=== PATIENT | female | born 1965 | race American Indian/Alaskan Native ===

== ENCOUNTER 2017-10-16 17:08 | Emergency (ER) | payer OTHER ==
[~2017-10-16] VITALS: Ht 167.6 cm; Wt 54.4 kg
[~2017-10-16 17:08] MED LIST: BACTRIM DS TAB1 EACH PO; HYDROCODON-ACE1 EA10 PO; MULTIVITAMINS1 EAC7 PO; NORCO 5-325 TA1 EACH PO; OMEPRAZOLE20 MG PO; ZOFRAN ODT4 MG PO
[2017-10-16] MEDS ORDERED: KETOROLAC TROME10 MG PO (17:45)
== END 2017-10-16 17:56 | disposition home or self-care (01) ==
LOC: ED 17:08
DX: S63.501A Unspecified sprain of right wrist, initial encounter (principal); F17.200 Nicotine dependence, unspecified, uncomplicated; Z88.0 Allergy status to penicillin; Z88.8 Allergy status to other drugs, medicaments and biological substances; Y04.0XXA Assault by unarmed brawl or fight, initial encounter
CPT/HCPCS: 73110; 99283

== ENCOUNTER 2018-05-25 13:36 | Inpatient (IN) | payer OTHER ==
[~2018-05-25] VITALS: Ht 167.6 cm; Wt 69.0 kg
[~2018-05-25 13:36] MED LIST changes: +KETOROLAC TROME10 MG PO
--- NOTE | 2018-05-25 17:26 | NUR ---
IV SITE INTACT, NO REDNESS OR SWELLING NOTED, FLUIDS INFUSE EASILY. PT DENIES PAIN, NAUSEA, AND SOB AT THIS TIME. PT ALERT AND ORIENTED X4.
--- NOTE | 2018-05-25 18:22 | NUR ---
22 G IV STARTED IN RT HAND, PT GABY WELL. PT ALSO HAS DINNER IN FRONT OF HER, SHE IS SITTING UP IN BED, CALL LIGHT WITHIN REACH, SPOUSE IS AT THE BEDSIDE.
--- NOTE | 2018-05-25 18:25 | NUR ---
PT BLADDER SCANNED FOR 98 ML. HAS BEEN NOTIFIED, NO VERBAL ORDERS GIVEN AT THIS TIME.
--- NOTE | 2018-05-25 19:30 | NUR ---
DR BECK IN TO SEE PT. PT HAVING BP'S 80'S/50'S, AWARE AND WILL ORDER MIDIDRINE AND CONT TO MONITOR.
--- NOTE | 2018-05-25 19:45 | NUR ---
HELPED PT UP TO VOID 100ML CONCENTRATED URINE, SENT SAMPLE TO LAB. STEADY ON FEET, DENIES DIZZINESS LIGHTHEADEDNESS BUT DOES STATE SHE HAD BEEN LIGHTHEADED EARLIER IN THE DAY. HR FROM 90'S TO 110 WHEN UP. PLAN OF CARE FOR THE NIGHT DISCUSSED WITH PT, QUESTIONS ANSWERED. STATES MOUTH WHERE TOOTH WAS PULLED EARLIER TODAY IS BEGINNING TO HURT "THE NUMBING IS STARTING TO WEAR OFF" AND WILL CALL IF IT GETS TO A POINT THAT SHE WANTS PAIN MEDICINE.
--- NOTE | 2018-05-25 20:16 | NUR ---
ASSESSMENT DONE, PT RESTING IN BED AWAKE WATCHING TV WITH FAMILY IN THE ROOM. K RIDER AND MG RIDER INFUSING ALONG WITH IVF 200ML/HR. ABX JUST COMPLETED, PO VITAMIN K JUST GIVEN. PT DENIES NEEDS AT THIS TIME.
--- NOTE | 2018-05-25 22:17 | NUR ---
PATIENT REPORTS 4/10 PAIN IN MOUTH FROM PULLED TOOTH, DESCRIBES PAIN THROBING. 5 MG PO OXYCODONE GIVEN. PATIENT DENIES FURTHER NEEDS. CALL LIGHT WITHIN REACH.
--- NOTE | 2018-05-26 02:00 | NUR ---
PT DENIES URGE TO VOID, BLADDER SCAN DONE SHOWS 200ML, UP TO VOID 200ML THEN BACK TO BED. DR BECK ON UNIT AND UPDATED RE BP'S AND PROLONGED QT.
--- NOTE | 2018-05-26 07:30 | NUR ---
REPORT RECIEVED. PATIENT IS RESTFUL IN BED. DENIES PAIN.
--- NOTE | 2018-05-26 08:00 | NUR ---
AMBULATED TO TO VOID 500 ML OF CONCENTRATED URINE. STABLE ON FEET. DENIES DIZZINESS. ASSESSMENT DONE UPON RETURN TO BED. TALEKD WITH PATIENT ABOUT PLAN OF CARE, IS UNDERSTANDING. NPO FOR PENDING ABD ULTRASOUND. ORAL CARE GIVEN. DENIES PAIN. SALT WATER RINSE DONE.
--- NOTE | 2018-05-26 09:00 | NUR ---
ABD US DONE AT BEDSIDE.
--- NOTE | 2018-05-26 09:35 | NUR ---
Kartik SIM 40 MEQ [place].
--- NOTE | 2018-05-26 11:15 | NUR ---
PHYS THERAPY HERE TO WORK WITH PATIENT.
--- NOTE | 2018-05-26 11:20 | NUR ---
TOLERATED AMBULATION WELL. HR TO 110 FROM MID 80'S AT REST. DENIES SHORTNESS OF BREATH, DIZZINESS. STATES SHE FEELS BETTER WALKING TODAY. BP-88/56 (62). FAMILY MEMBERS ARE IN ROOM.
--- NOTE | 2018-05-26 12:25 | NUR ---
AMBULATED TO BR TO VOID AND HAVE BM, BACK TO BED W/O INCIDENT.
--- NOTE | 2018-05-26 13:00 | NUR ---
DR. BECK HERE TO SEE PATIENT. ORDERS RECIEVED. PATIENT IS AWARE OF NEW ORDERS. K RIDER CONTINUE TO INFUSE.
[2018-05-26] MEDS ORDERED: PENICILLIN V P500 MG PO (14:10)
[2018-05-26] MEDS ORDERED: FEROSUL325 MG PO (14:12)
[2018-05-26] MEDS ORDERED: VITAMIN C500 M1 PO (14:13)
--- NOTE | 2018-05-26 14:33 | EKG ---
[facility] [address] [place], [place] [address] Signed Sinus tachycardia Prolonged QT Abnormal ECG When compared with ECG of 07-NOV-2016 12:35, No significant change was found Confirmed by BIN BECK DO ([id number]) on 05/26/2018 2:32:57 PM Electronically Signed By: BIN BECK DO 05/26/18 1433 PATIENT NAME: SUSY DUFF PHIL Electrocardiogram DATE OF : 65 PHYSICIAN: BIN BECK DO REPORT #: [id number] REPORT IS CONFIDENTIAL AND NOT TO BE RELEASED WITHOUT AUTHORIZATION
--- NOTE | 2018-05-26 14:35 | EKG ---
[facility] [address] [place], [place] [address] Signed Normal sinus rhythm Prolonged QT Abnormal ECG When compared with ECG of 25-MAY-2018 13:53, (Unconfirmed) No significant change was found Confirmed by BIN BECK DO ([id number]) on 05/26/2018 2:35:39 PM Electronically Signed By: BIN BECK DO 05/26/18 1435 PATIENT NAME: SHERINSUSY Electrocardiogram DATE OF : 65 PHYSICIAN: BIN BECK DO REPORT #: [id number] REPORT IS CONFIDENTIAL AND NOT TO BE RELEASED WITHOUT AUTHORIZATION
--- NOTE | 2018-05-26 14:45 | NUR ---
TO BR TO VOID 200 ML OF DARK YUE URINE. 24 HR URINE STARTED. PATIENT IS AWARE.
--- NOTE | 2018-05-26 15:00 | NUR ---
AMBULATED TO SHOWER.
--- NOTE | 2018-05-26 15:14 | NUR ---
CM ASSESSMENT. PT CURRENTLY LIVES AT HOME WITH SO AND BROTHER. SO WORKS AWAY. PT CARES FOR BROTHER. PT'S SISTER LIVES NEXT DOOR AND ASSISTS PATIENT. PT STATES SISTER WILL CARE FOR HER WHEN SHE GOES HOME.
--- NOTE | 2018-05-26 16:00 | NUR ---
ASSESSMENT UNCHANGED. FAMILY MEMBERS ARE IN ROOM. PATIENT IS W/O C/O. IV SITES X 2 SL.
--- NOTE | 2018-05-26 18:57 | NUR ---
TOOK DINNER WELL. DENIES PAIN. SALT RINSE DONE. NO CHANGES HAS HAD GOOD DAY.
--- NOTE | 2018-05-26 19:45 | NUR ---
PT RECEIVED FROM DAY SHIFT OMAR COFFMAN. PT AWAKE IN BED, BROTHER IN ROOM, DENIES NEEDS OR PAIN. ASSESSMENT COMPLETED. VSS AFEBRILE.
--- NOTE | 2018-05-26 20:15 | NUR ---
DR BECK IN UNIT TO CHECK ON PT, NO NEW ORDERS AT THIS TIME.
--- NOTE | 2018-05-27 02:30 | NUR ---
up to void, back to bed, no complaints
--- NOTE | 2018-05-27 06:33 | NUR ---
UP TO BR TO VOID AND BACK TO BED.
--- NOTE | 2018-05-27 07:30 | NUR ---
REPORT RECIEVED. PATIENT RESTING IN BED IS W/O C/O.
--- NOTE | 2018-05-27 07:35 | NUR ---
UP TO VOID AND BACK TO BED
--- NOTE | 2018-05-27 08:00 | NUR ---
ASSESSMENT DONE. TALKED WITH PATIENT ABOUT PLAN OF CARE FOR DAY, IS UNDERSTANDING.
--- NOTE | 2018-05-27 09:00 | NUR ---
DR. BECK HERE TO SEE PATIENT,TRANSFER TO MED-SURG ORDERS RECIEVED.
--- NOTE | 2018-05-27 10:00 | NUR ---
AMBULATED TO SHOWER, IS VERY STABLE ON FEET.
--- NOTE | 2018-05-27 10:30 | NUR ---
TOLERATED SHOWER WELL. WILL REMAIN IN ICU HOUSE CONVENIENCE.
--- NOTE | 2018-05-27 10:35 | NUR ---
K JOCE HUNG PER ORDERS.
--- NOTE | 2018-05-27 19:53 | NUR ---
SHIFT REPORT WAS RECEIVED FROM OMAR COFFMAN. PT IS CURRENTLY SITTING UP IN BED WATCHING TV, VISITOR AT BEDSIDE. ASSESSMENT COMPLETED AND BENIGN, SEE DOCUMENTATION. SCD'S IN PLACE. IV SITES PATENT, SALINE LOCKED. PLAN OF CARE DISCUSSED WITH PATIENT. PT DENIES REQUESTS AT THIS TIME, CALL LIGHT WITHIN REACH.
--- NOTE | 2018-05-27 20:12 | NUR ---
PT UP INDEPENDENTLY TO BATHROOM, VOIDED 300ML SLIGHTLY CONCENTRATED URINE AND HAD MEDIUM SIZED BM. PT RETURNED TO BED AND PLACED HER SCD'S BACK ON. URINE ADDED TO 24 HOUR COLLECTION AND ICE ADDED TO KEEP SAMPLE COOL. PT PROVIDED WITH CUP OF ICE PER REQUEST, NO FURTHER NEEDS AT THIS TIME.
--- NOTE | 2018-05-27 21:28 | NUR ---
PT UP TO VOID AND THEN BACK TO BED. URINE REMAINS SOMEWHAT CONCENTRATED IN APPEARANCE, ADDED TO 24 HOUR COLLECTION.
--- NOTE | 2018-05-27 22:37 | NUR ---
PT UP TO VOID AND NOW BACK IN BED. STATES SHE IS GOING TO TRY AND SLEEP NOW, NO REQUESTS AT THIS TIME.
--- NOTE | 2018-05-27 23:13 | NUR ---
24 HOUR URINE COLLECTION COMPLETED AT 2300. SAMPLE TAKEN TO LAB. PT APPEARS TO BE SLEEPING AT THIS TIME, DOES NOT APPEAR TO BE IN ANY DISTRESS. RESPIRATIONS EVEN AND UNLABORED, RR:16.
--- NOTE | 2018-05-27 23:38 | NUR ---
PT UP TO BATHROOM TO HAVE BM, THEN RETURNED TO BED. ASSESSMENT COMPLETED, NO CHANGES FROM PREVIOUS ASSESSMENT. VITAL SIGNS OBTAINED AND STABLE. PT DENIES ANY PAIN OR NAUSEA. SCD'S REMAIN IN PLACE. NO REQUESTS AT THIS TIME, CALL LIGHT WITHIN REACH.
--- NOTE | 2018-05-28 00:48 | NUR ---
PT UP TO VOID AND THEN BACK TO BED.
--- NOTE | 2018-05-28 02:07 | NUR ---
PT UP TO VOID AND THEN BACK TO BED. FRESH ICE CHIPS PROVIDED PER REQUEST.
--- NOTE | 2018-05-28 03:34 | NUR ---
PT UP TO BATHROOM TO VOID AND THEN RETURNED TO BED. ASSESSMENT COMPLETED, REMAINS UNCHANGED. VITAL SIGNS OBTAINED AND STABLE. PT CONTINUES TO DENY PAIN AND NAUSEA. NO REQUESTS AT THIS TIME, CALL LIGHT WITHIN REACH.
--- NOTE | 2018-05-28 05:55 | NUR ---
PT UP TO BATHROOM TO VOID AND THEN RETURNED TO BED. FRESH ICE CHIPS PROVIDED PER REQUEST.
--- NOTE | 2018-05-28 07:08 | NUR ---
SHIFT REPORT GIVEN TO DAY SHIFT NURSES.
--- NOTE | 2018-05-28 08:10 | NUR ---
COSYNTROPIN PANEL DRAWEN THEN CORTROSYN IM GIVEN TO R GLUTEUS.
--- NOTE | 2018-05-28 08:20 | NUR ---
SITTING UP IN BED FOR BREAKFAST.
--- NOTE | 2018-05-28 08:40 | NUR ---
LAB DRAWN PER PROTOCOL.
--- NOTE | 2018-05-28 08:40 | NUR ---
TOLERATED BREAKFAST WELL.
--- NOTE | 2018-05-28 09:00 | NUR ---
MEDICATIONS MAG AND KCL RIDER HUNG PER ORDERS.
--- NOTE | 2018-05-28 09:10 | NUR ---
COSYNTROPIN LEVEL DRAWN PER PROTOCOL.
--- NOTE | 2018-05-28 09:20 | NUR ---
DR. BECK HERE TO SEE PATIENT. TALKED WITH PATIENT ABOUT DISCHARGE PLAN. IS AT BEDSIDE.
[2018-05-28] MEDS ORDERED: CIPROFLOXACIN500 MG PO (09:38)
[2018-05-28] MEDS ORDERED: POTASSIUM CHLO20 ME1 PO (09:50)
--- NOTE | 2018-05-28 11:00 | NUR ---
IV KCL AND IV MAG INFUSED. IV SITES X 2 DC'D WITH CATH INTACT. DISCHARGE INSTRUCTIONS GIVEN WITH PATIENT UNDERSTANDING.
--- NOTE | 2018-05-28 11:30 | NUR ---
DISCHARGED TO HOME, TRANSPORTED TO CAR VIA W/C. HERE TO TAKE PATIENT HOME.
== END 2018-05-28 11:30 | disposition home or self-care (01) | DRG 683 ==
LOC: ED 13:36 → CCU 16:45
PROVIDERS: ADMIT Student in an Organized Health Care Education/Training Program
DX: N17.9 Acute kidney failure, unspecified (principal); N39.0 Urinary tract infection, site not specified; R18.8 Other ascites; E87.1 Hypo-osmolality and hyponatremia; T39.395A Adverse effect of other nonsteroidal anti-inflammatory drugs [NSAID], initial encounter; K74.60 Unspecified cirrhosis of liver; F17.200 Nicotine dependence, unspecified, uncomplicated; E87.6 Hypokalemia; E83.42 Hypomagnesemia; E86.1 Hypovolemia; R01.1 Cardiac murmur, unspecified; I45.81 Long QT syndrome; Z88.0 Allergy status to penicillin; Z88.8 Allergy status to other drugs, medicaments and biological substances; Z79.899 Other long term (current) drug therapy
CPT/HCPCS: 36415; 51798; 71045; 76705; 80048; 80053; 80074; 80176; 80400; 81001; 81050; 82140; 82248; 82390; 82525; 82533; 82550; 82570; 82728; 83605; 83690; 83735; 83880; 84100; 84132; 84156; 84300; 84484; 85025; 85610; 85651; 86038; 86703; 87040; 87088; 93005; 93010; 96365; 96366; 97161; 99285-25; 99406; G0480; J0696; J0834; J3475; J3480; J7030; J7060; J7120; P9047

== ENCOUNTER 2019-05-14 22:01 | Emergency (ER) | payer OTHER ==
[~2019-05-14] VITALS: Ht 167.6 cm; Wt 69.0 kg
--- OUTSIDE RECORDS SUMMARY | ~2019-05-14 | XMS | Encounter Summary ---
Demographics + + + | Address | [address] | | | [place] [address] | + + + | Home Phone | | + + + | Preferred Language | Unknown | + + + | Marital Status | | + + + | Restorationist Affiliation | Unknown | + + + | Race | Unknown | + + + | Ethnic Group | Unknown | + + + Author + + + | Author | [facility] | | | and [place] | + + + | Organization | [facility] | | | and [place] | + + + | Address | Unknown | + + + | Phone | Unavailable | + + + Support + + +---------+ + | Name | Relationship | Address | Phone | + + +---------+ + | Genevieve Ch | ECON | Unknown | | + + +---------+ + Care Team Providers + +------+ + | Care Staff Assistant Name | Role | Phone | + +------+ + | No, Unknownpcp | PCP | | + +------+ + Encounter Details +--------+ + + + + | Date | Type | Department | Care Team | Description | +--------+ + + + + | 03/12/ | Orders Only | [facility] | Heather Sargent DO | Long QT interval | | 2019 | | CARDIOLOGY [place] | [address] | (Primary Dx) | | | | [address] | [place], [place] | | | | | [place], [place] | [address] | | | | | [address] | | | | | | [phone] | | | +--------+ + + + + Social History + +-------+ +--------+------+ | Tobacco Use | Types | Packs/Day | Years | Date | | | | | Used | | + +-------+ +--------+------+ | Current Some Day | | 0.25 | | | | Smoker | | | | | + +-------+ +--------+------+ + +---+---+---+ | Smokeless Tobacco: | | | | | Never Used | | | | + +---+---+---+ + + | Comments: used to chew as a kid. | + + + + +---------+ + | Alcohol Use | Drinks/Week | oz/Week | Comments | + + +---------+ + | Never | | | | + + +---------+ + + + + + | Alcohol Habits | Answer | Date Recorded | + + + + | How often do you have a drink containing | Never | 02/08/2019 | | alcohol? | | | + + + + | How many drinks containing alcohol do you | Not asked | | | have on a typical day when you are | | | | drinking? | | | + + + + | How often do you have six or more drinks on | Not asked | | | one occasion? | | | + + + + + + + | Sex Assigned at | Date Recorded | | | | + + + | Not on file | | + + + + + + + | Job Start Date | Occupation | Industry | + + + + | Not on file | Not on file | Not on file | + + + + + + + + | Travel History | Travel Start | Travel End | + + + + + + | No recent travel history available. | + + documented as of this encounter Plan of Treatment +--------+---------+ + + + | Date | Type | Specialty | Care Team | Description | +--------+---------+ + + + | 06/07/ | Office | Cardiology | Heather Sargent DO | | | 2019 | Visit | | [address] | | | | | | [place] | | | | | | [address] | | | | | | | | +--------+---------+ + + + documented as of this encounter Procedures + +--------+ + + + | Procedure Name | Priori | Date/Time | Associated Diagnosis | Comments | | | ty | | | | + +--------+ + + + | ECG 12 LEAD | Routin | 02/08/2019 | Long QT interval | Results for this | | | e | 9:55 AM | | procedure are in the | | | | PDT | | results section. | + +--------+ + + + documented in this encounter Results ECG 12 lead (02/08/2019 9:55 AM PDT) + + + + + + | Component | Value | Ref Range | Performed | Pathologist | | | | | At | Signature | + + + + + + | VENTRICULAR | 58 | BPM | [facility] | | | RATE EKG | | | | | + + + + + + | ATRIAL RATE | 58 | BPM | [facility] | | + + + + + + | P-R | 132 | ms | [facility] | | | INTERVAL | | | | | + + + + + + | QRS | 80 | ms | [facility] | | | DURATION | | | | | + + + + + + | Q-T | 498 | ms | [facility] | | | INTERVAL | | | | | + + + + + + | Q-T | 488 | ms | [facility] | | | INTERVAL | | | | | | (CORRECTED) | | | | | + + + + + + | P WAVE AXIS | 34 | degrees | [facility] | | + + + + + + | QRS AXIS | 66 | degrees | [facility] | | + + + + + + | T AXIS | 43 | degrees | [facility] | | + + + + + + | INTERPRETAT | Please refer to | | [facility] | | | ION TEXT | Providers office visit | | | | | | note for Providers | | | | | | Interpretation.Confirmed | | | | | | by [facility] [place] Read Only, | | | | | | [facility] [place] ([id number]), | | | | | | film and video editor Benitez Arredondo | | | | | | ([id number]) on 03/12/2019 | | | | | | 8:08:58 AM | | | | + + + + + + + + | Specimen | + + | | + + + + + | Narrative | Performed At | + + + | | | + + + + +---------+ + + | Performing | Address | City/State/Zipcode | Phone Number | | Organization | | | | + +---------+ + + | [facility] | | | | + +---------+ + + documented in this encounter Visit Diagnoses + + | Diagnosis | + + | Long QT interval - Primary Nonspecific abnormal electrocardiogram (ECG) (EKG) | + + documented in this encounter"
--- OUTSIDE RECORDS SUMMARY | ~2019-05-14 | XMS | Encounter Summary ---
Demographics + + + | Address | [address] | | | [place] [address] | + + + | Home Phone | | + + + | Preferred Language | Unknown | + + + | Marital Status | | + + + | Amish Affiliation | Unknown | + + + [...] Team Providers + +------+ + | Care Caustic Plant Worker Name | Role | Phone | + [...] | | | | [place] | [phone] | | | | | [address] | | | | | | [phone] | | | +--------+ + + + [...] | Heather Sargent DO | | | 2020 | Visit | | [address] | | | | | | [place] | | | | | | [address] | | | | | | | | +--------+---------+ + + + documented as of this encounter Visit Diagnoses Not on filedocumented in this encounter"
--- OUTSIDE RECORDS SUMMARY | ~2019-05-14 | XMS | Encounter Summary ---
Demographics + + + | Address | [address] | | | [place] [address] | + + + | Home Phone | | + + + | Preferred Language | Unknown | + + + | Marital Status | | + + + | Sabianism Affiliation | Unknown | + + + | Race | Unknown | + + + | Ethnic Group | Unknown | + + + Author + + + | Author | [facility] | | | and [place] | + + + | Organization | [facility] | | | [...] Team Providers + +------+ + | Care Rolling Machine Operator Automatic Name | Role | Phone | + +------+ + | No, Unknownpcp | PCP | | + +------+ + Encounter Details +--------+ + + + + | Date | Type | Department | Care Team | Description | +--------+ + + + + | 11/23/ | Orders Only | [facility] | Conversion | Cirrhosis of liver | | 2019 | | CONVERSION DEP [address] | Transaction, | (HCC); Abnormal | | | | [address] | Provider Unknown | electrocardiogram; | | | | [place], [place] | [phone] | Abnormal | | | | [phone] | (Fax) | electrocardiogram | | | | [phone] | | | +--------+ + + + + Social History + +-------+ +--------+------+ | Tobacco Use | Types | Packs/Day | Years | Date | | | | | Used | | + +-------+ +--------+------+ | Current Some Day | | 0.25 | | | | Smoker | | | | | + +-------+ +--------+------+ + + | Comments: used to chew as a kid. | + + + + + | Sex [...] | 2019 | Visit | | [address] | | | | | | [place] | | | | | | [address] | | | | | | | | +--------+---------+ + + + + +------+--------+ + + | Name | Type | Priori | Associated Diagnoses | Order Schedule | | | | ty | | | + +------+--------+ + + | Alpha fetoprotein, | Lab | Routin | Cirrhosis of liver | Expected: | | L3 percent | | e | (HCC) | 08/23/2018, Expires: | | | | | | 08/23/2019 | + +------+--------+ + + | Smooth Muscle Ab | Lab | Routin | Cirrhosis of liver | Expected: | | | | e | (HCC) | 08/23/2018, Expires: | | | | | | 08/23/2019 | + +------+--------+ + + | CBC with | Lab | Routin | Cirrhosis of liver | Expected: | | Differential | | e | (HCC) | 08/23/2018, Expires: | | | | | | 08/23/2019 | + +------+--------+ + + | Ceruloplasmin | Lab | Routin | Cirrhosis of liver | Expected: | | | | e | (HCC) | 08/23/2018, Expires: | | | | | | 08/23/2019 | + +------+--------+ + + | Hepatitis B Core Ab, | Lab | Routin | Cirrhosis of liver | Expected: | | Total | | e | (HCC) | 08/23/2018, Expires: | | | | | | 08/23/2019 | + +------+--------+ + + | Hepatitis A AB, | Lab | Routin | Cirrhosis of liver | Expected: | | Total | | e | (HCC) | 08/23/2018, Expires: | | | | | | 08/23/2019 | + +------+--------+ + + | Hepatitis B Surface | Lab | Routin | Cirrhosis of liver | Expected: | | Ab, Quant | | e | (HCC) | 08/23/2018, Expires: | | | | | | 08/23/2019 | + +------+--------+ + + | Iron and Iron | Lab | Routin | Cirrhosis of liver | Expected: | | Binding Capacity | | e | (HCC) | 08/23/2018, Expires: | | | | | | 08/23/2019 | + +------+--------+ + + | Protime INR | Lab | Routin | Cirrhosis of liver | Expected: | | | | e | (HCC) | 08/23/2018, Expires: | | | | | | 08/23/2019 | + +------+--------+ + + | [id number]-Khonziopgxd, | Lab | Routin | Cirrhosis of liver | Expected: | | Phenotype | | e | (HCC) | 08/23/2018, Expires: | | | | | | 08/24/2019 | + +------+--------+ + + | Mitochondrial Ab, M2 | Lab | Routin | Cirrhosis of liver | Expected: | | | | e | (HCC) | 08/23/2018, Expires: | | | | | | 08/24/2019 | + +------+--------+ + + | Comprehensive | Lab | Routin | Cirrhosis of liver | Expected: | | Metabolic Panel | | e | (HCC) | 08/23/2018, Expires: | | | | | | 08/24/2019 | + +------+--------+ + + | Copper, Urine, Quant | Lab | Routin | Cirrhosis of liver | Expected: | | | | e | (HCC) | 08/25/2018, Expires: | | | | | | 08/26/2019 | + +------+--------+ + + | Copper, Serum | Lab | Routin | Cirrhosis of liver | Expected: | | | | e | (HCC) | 08/25/2018, Expires: | | | | | | 08/26/2019 | + +------+--------+ + + | Basic Metabolic | Lab | Routin | Abnormal | Expected: | | Panel | | e | electrocardiogram | 11/23/2018, Expires: | | | | | Abnormal | 11/24/2019 | | | | | electrocardiogram | | + +------+--------+ + + | Magnesium | Lab | Routin | Abnormal | Expected: | | | | e | electrocardiogram | 11/23/2018, Expires: | | | | | Abnormal | 11/24/2019 | | | | | electrocardiogram | | + +------+--------+ + + documented as of this encounter Visit Diagnoses + + | Diagnosis | + + | Cirrhosis of liver (HCC) Cirrhosis of liver without mention of alcohol | + + | Abnormal electrocardiogram Nonspecific abnormal electrocardiogram (ECG) (EKG) | + + documented in this encounter"
--- OUTSIDE RECORDS SUMMARY | ~2019-05-14 | XMS | Clinical Summary ---
Demographics + + + | Address | [address] | | | [place] [address] | + + + | Home Phone | | + + + | Preferred Language | Unknown | + + + | Marital Status | | + + + | Congregation Affiliation | Unknown | + + + | Race | Unknown | + + + | Ethnic Group | Unknown | + + + Author + + + | Author | [facility] (Historical as of | | | 12-23-18) | + + + | Organization | [facility] (Historical as of | | | 12-23-18) | + + + | Address | Unknown | + + + | Phone | Unavailable | + + + Support + + +---------+ + | Name | Relationship | Address | Phone | + + +---------+ + | Spino,Genevieve | ECON | Unknown | | + + +---------+ + Care Team Providers + +------+ + | Care Maintenance Of Way Foreman Name | Role | Phone | + +------+ + | Irvin Simeongonzález Amato | PP | | + +------+ + Allergies + + + + + + | Active Allergy | Reactions | Severity | Noted | Comments | | | | | Date | | + + + + + + | Pseudoephedrine | Shortness of Breath, | High | 08/24/19 | | | | Rash | | 19 | | + + + + + + Current Medications + + +---------+---------+------+------+-------+ | Prescription | Sig. | Disp. | Refills | Star | End | Statu | | | | | | t | Date | s | | | | | | Date | | | + + +---------+---------+------+------+-------+ | IRON PO | Take by mouth. | | | | | Activ | | | | | | | | e | + + +---------+---------+------+------+-------+ | Ascorbic Acid | Take by mouth. | | | | | Activ | | (VITAMIN C PO) | | | | | | e | + + +---------+---------+------+------+-------+ | Multiple | Take 1 tablet by | | | | | Activ | | Vitamins-Minerals | mouth daily. | | | | | e | | (MULTIVITAMIN WITH | | | | | | | | MINERALS) tablet | | | | | | | + + +---------+---------+------+------+-------+ | Calcium | Take by mouth. | | | | | Activ | | Carbonate-Vit D-Min | | | | | | e | | (CALCIUM 1200 PO) | | | | | | | + + +---------+---------+------+------+-------+ | propranolol | Take 1 capsule by | 30 | 11 | 11/06 | 11/06 | Activ | | (INDERAL LA) 60 MG | mouth daily. | capsule | | 8/20 | 7/20 | e | | 24 hr capsule | | | | 19 | 20 | | + + +---------+---------+------+------+-------+ | potassium chloride | Take 1 tablet by | 30 | 5 | 07/1 | | Activ | | SA (ALEXA MCQUEEN) | mouth daily. | tablet | | 8/20 | | e | | 20 MEQ tablet | | | | 19 | | | + + +---------+---------+------+------+-------+ Active Problems + + + | Problem | Noted Date | + + + | Long QT interval | 11/23/2018 | + + + | Hypokalemia | 11/23/2018 | + + + | Other cirrhosis of liver (HCC) | 11/23/2018 | + + + | Tobacco dependence | 11/23/2018 | + + + | Moderate tricuspid insufficiency | 11/23/2018 | + + + Family History + + +------+ + | Medical History | Relation | Name | Comments | + + +------+ + | Diabetes type II | Father | | | + + +------+ + | Cancer | Mother | | breast cancer | + + +------+ + + +------+ + + | Relation | Name | Status | Comments | + +------+ + + | Father | | | | + +------+ + + | Mother | | | | + +------+ + + Social History + +-------+ +--------+ + | Tobacco Use | Types | Packs/Day | Years | Date | | | | | Used | | + +-------+ +--------+ + | Current Some Day | | 0.25 | 20 | Quit: 05/09/2018 | | Smoker | | | | | + +-------+ +--------+ + + +---+---+---+ | Smokeless Tobacco: | | | | | Former User | | | | + +---+---+---+ + + | Tobacco Cessation: Ready to Quit: No; Counseling Given: Yes | | Comments: used to chew as a kid. | + + + + +---------+ + | Alcohol Use | Drinks/We | oz/Week | Comments | | | ek | | | + + +---------+ + | No | | | | + + +---------+ + + + + | Sex Assigned at | Date Recorded | | | | + + + | Not on file | | + + + Last Filed Vital Signs + + + + | Vital Sign | Reading | Time Taken | + + + + | Blood Pressure | 102/64 | 11/23/2018 10:11 AM PDT | + + + + | Pulse | 73 | 11/23/2018 10:11 AM PDT | + + + + | Temperature | 36.6 C (97.8 F) | 11/10/2018 1:00 PM PDT | + + + + | Respiratory Rate | 17 | 11/10/2018 1:15 PM PDT | + + + + | Oxygen Saturation | 99% | 11/23/2018 10:11 AM PDT | + + + + | Inhaled Oxygen | - | - | | Concentration | | | + + + + | Weight | 75.8 kg (167 lb) | 11/23/2018 10:11 AM PDT | + + + + | Height | 165.1 cm (5' 5") | 11/23/2018 10:11 AM PDT | + + + + | Body Mass Index | 27.79 | 11/23/2018 10:11 AM PDT | + + + + Plan of Treatment + + + + + | Health Maintenance | Due Date | Last Done | Comments | + + + + + | Vaccine: | | | | | Dtap/Tdap/Td (1 - | 4 | | | | Tdap) | | | | + + + + + | Vaccine: | | | | | Pneumococcal 19-64 | 4 | | | | (PPSV23 only) Medium | | | | | Risk (1 of 1 - | | | | | PPSV23) | | | | + + + + + | Cervical Cancer | | | | | Screening (Pap) | 5 | | | + + + + + | Breast Cancer | | | | | Screening | 5 | | | | (Mammogram) | | | | + + + + + | Colon Cancer | | | | | Screening | 5 | | | | (Colonoscopy) | | | | + + + + + | Vaccine: Zoster (1 | | | | | of 2) | 5 | | | + + + + + | Vaccine: Influenza | | | | | (#1) | 9 | | | + + + + + Results Not on filefrom Last 3 Months Insurance + +--------+ +------+-------+---------+ | Payer | Benefi | Subscriber | Type | Phone | Address | | | t Plan | ID | | | | | | / | | | | | | | Group | | | | | + +--------+ +------+-------+---------+ | [facility] | UNITED | [id number] | | | | | | | | | | | | | HEALTH | | | | | | | CARE - | | | | | | | SLC | | | | | + +--------+ +------+-------+---------+ | [employer] | YELLOW | [id number] | | | | | PLANS | [place] | | | | | + +--------+ +------+-------+---------+ + +--------+ +--------+ + + | Guarantor Name | Accoun | Relation to | Date | Phone | Billing Address | | | t Type | Patient | of | | | | | | | | | | + +--------+ +--------+ + + | NAN DUFF | Person | Self | [birth year] | Home: | [address] | | | al/Fam | | 1965 | [phone] | [place] | | | mike | | | [phone] | [phone] | + +--------+ +--------+ + +
--- OUTSIDE RECORDS SUMMARY | ~2019-05-14 | XMS | Encounter Summary ---
Demographics + + + | Address | [address] | | | [place] [address] | + + + | Home Phone | | + + + | Preferred Language | Unknown | + + + | Marital Status | | + + + | Alevism Affiliation | Unknown | + + + | Race | Unknown | + + + | Ethnic Group | Unknown | + + + Author + + + | Author | [facility] | | | and [place] | + + + | Organization | [facility] | | [...] Team Providers + +------+ + | Care Quality Control Tester Name | Role | Phone | + +------+ + PCP | Unavailable | + +------+ + Encounter Details +--------+ + + + + | Date | Type | Department | Care Team | Description | +--------+ + + + + | 11/07/ | Hospital | [facility] GENER[facility] IP | Conversion | Diagnosis unknown | | 2017 | Encounter | [address]VERSION [address] | Transaction, | | | | | [address] | Provider Unknown | | | | | [place] | [phone] | | | | | [address] | | | | | | [phone] | | | +--------+ + + + [...] | | | | | [place] | | | | | | [address] | | | | | | | [...] Note | + + | [facility] - 12/21/2018 9:08 AM PDT This is [...]
--- OUTSIDE RECORDS SUMMARY | ~2019-05-14 | XMS | Encounter Summary ---
Demographics + + + | Address | [address] | | | [place] [address] | + + + | Home Phone | | + + + | Preferred Language | Unknown | + + + | Marital Status | | + + + | Hindu Affiliation | Unknown | + + + | Race | Unknown | + + + | Ethnic Group | Unknown | + + + Author + + + | Author | [facility] | | | and [place] | + + + | Organization | [facility] | | [...] Team Providers + +------+ + | Care Oil Pipeline Operator Name | Role | Phone | + +------+ + PCP | Unavailable | + +------+ + Encounter Details +--------+ + + + + | Date | Type | Department | Care Team | Description | +--------+ + + + + | 11/07/ | Hospital | [facility] | Conversion | Diagnosis unknown | | 2017 | Encounter | [address]VERSION [address] | Transaction, | | | | | [address] | Provider Unknown | | | | | [place] | [phone] | | | | | [address] | | | | | | [phone] | | | +--------+ + + + [...] | | | | | [place] | | | | | | [address] | | | | | | | | +--------+---------+ + + + documented as of this encounter Procedures + +--------+ + + + | Procedure Name | Priori | Date/Time | Associated Diagnosis | Comments | | | ty | | | | + +--------+ + + + | CT HEAD WO CONTRAST | Routin | 11/07/2016 | | Results for this | | | e | 3:08 PM | | procedure are in the | | | | PDT | | results section. | + +--------+ + + + documented in this encounter Results CT Head wo Contrast (11/07/2016 3:08 PM PDT) + + | Specimen | [...]
--- OUTSIDE RECORDS SUMMARY | ~2019-05-14 | XMS | Encounter Summary ---
Demographics + + + | Address | [address] | | | [place] [address] | + + + | Home Phone | | + + + | Preferred Language | Unknown | + + + | Marital Status | | + + + | Scientologist Affiliation | Unknown | + + + | Race | Unknown | + + + | Ethnic Group | Unknown | + + + Author + + + | Author | [facility] | | | and [place] | + + + | Organization | [facility] | | | and [...] Team Providers + +------+ + | Care Primary Special Education Teacher Name | Role | Phone | + +------+ + PCP | Unavailable | + +------+ + Encounter Details +--------+ + + + + | Date | Type | Department | Care Team | Description | +--------+ + + + + | 11/07/ | Hospital | [facility] GENER[facility] IP | Conversion | Diagnosis unknown | | 2017 | Encounter | [address]VERSION [address] | Transaction, | | | | | [address] | Provider Unknown | | | | | [place] | [phone] | | | | | [address] | | | | | | [phone] | | | +--------+ + + + [...] | | | | | [place] | | | | | | [address] | | | | | | | [...]
--- OUTSIDE RECORDS SUMMARY | ~2019-05-14 | XMS | Clinical Summary ---
Demographics + + + | Address | [address] | | | [place] [address] | + + + | Home Phone | | + + + | Preferred Language | Unknown | + + + | Marital Status | | + + + | Gnosticism Affiliation | Unknown | + + + | Race | Unknown | + + + | Ethnic Group | Unknown | + + + Author + + + | Author | [facility] (Historical as of | | | 12-23-18) | + + + | Organization | [facility] (Historical as of | | | 12-23-18) [...] Team Providers + +------+ + | Care Continuous Improvement Consultant Name | Role | Phone | + [...] | | | + +--------+ +------+-------+---------+ | [facility] | UNITED | [id number] | | | | | | | | | | | | | HEALTH | | | | | | | CARE - | | | | | | | SLC | | | | | + +--------+ +------+-------+---------+ | [facility] | YELLOW | [id number] | | | | | PLANS | [...] | Self | [birth year] | Home: | [address] | | | al/Fam | | 1965 | [phone] | [place] | | | mike | | | [phone] | [phone] | + +--------+ +--------+ + +
--- OUTSIDE RECORDS SUMMARY | ~2019-05-14 | XMS | Encounter Summary ---
Demographics + + + | Address | [address] | | | [place] [address] | + + + | Home Phone | | + + + | Preferred Language | Unknown | + + + | Marital Status | | + + + | Sikhism Affiliation | Unknown | + + + | Race | Unknown | + + + | Ethnic Group | Unknown | + + + Author + + + | Author | [facility] | | | and [place] | + + + | Organization | [facility] | | | and [...] Team Providers + +------+ + | Care Fireworks Inspector Name | Role | Phone | + +------+ + PCP | Unavailable | + +------+ + Encounter Details +--------+ + + + + | Date | Type | Department | Care Team | Description | +--------+ + + + + | 11/07/ | Hospital | [facility] | Conversion | Diagnosis unknown | | 2017 | Encounter | CONVERSION [address] | Transaction, | | | | | [address] | Provider Unknown | | | | | [place] | [phone] | | | | | [address] | | | | | | [phone] | | | +--------+ + + + [...] | | | | | [place] | | | | | | [address] | | | | | | | | +--------+---------+ + + + documented as of this encounter Procedures + +--------+ + + + | Procedure Name | Priori | Date/Time | Associated Diagnosis | Comments | | | ty | | | | + +--------+ + + + | CT ABDOMEN PELVIS WO | Routin | 11/07/2016 | | Results for this | | CONTRAST | e | 2:49 PM | | procedure are in the | | | | PDT | | results section. | + +--------+ + + + documented in this encounter Results CT Abdomen Pelvis wo Contrast (11/07/2016 2:49 PM PDT) + + | Specimen | [...]
--- OUTSIDE RECORDS SUMMARY | ~2019-05-14 | XMS | Encounter Summary ---
Demographics + + + | Address | [address] | | | [place] [address] | + + + | Home Phone | | + + + | Preferred Language | Unknown | + + + | Marital Status | | + + + | Mormon Affiliation | Unknown | + + + | Race | Unknown | + + + | Ethnic Group | Unknown | + + + Author + + + | Author | [facility] | | | and [place] | + + + | Organization | [facility] | | | and [...] Team Providers + +------+ + | Care Licensed Certified Orthotist Name | Role | Phone | + [...] | Tiffanie w/ | [place] | [place], [place] | | | | | [employer] | [place], [place] | [address] Phone: | | | | | working | [address] | [phone] | | | | | auth. hand cloth folder | Phone: | Fax: | | | | | Procedures | [phone] | [phone] | | | | | OFFICE VISIT | Fax: | | | | | | REGULAR | [phone] | | +--------+--------+ + + + + Encounter Details +--------+---------+ + + + | Date | Type | Department | Care Team | Description | +--------+---------+ + + + | 02/08/ | Office | [facility] | Heather Sargent DO | Premature | | 2019 | Visit | CARDIOLOGY [place] | [address] | ventricular | | | | [address] | [place], [place] | contractions | | | | [address] | [address] | (Primary Dx); | | | | [place], [place] | | History of | | | | [address] | | palpitations; | | | | [phone] | | Prolonged Q-T | | | [...] Sargent DO - 02/08/2019 9:40 AM PDT [facility] Cardiology Cardiology Consult Note Reason for Consultation: [...] cirrhosis of uncertain etiology. [facility] Q[facility] and [...] care of this patient. Primary Care Physician: [facility] Heather Sargent DO documented in this enco unter Plan of Treatment +--------+---------+ + + + | Date | Type | Specialty | Care Team | Description | +--------+---------+ + + + | 06/07/ | Office | Cardiology | Heather Sargent DO | | | 2019 | Visit | | [address] | | | | | | [place] | | | | | | [address] | | | | | | | [...]
--- OUTSIDE RECORDS SUMMARY | ~2019-05-14 | XMS | Encounter Summary ---
Demographics + + + | Address | [address] | | | [place] [address] | + + + | Home Phone | | + + + | Preferred Language | Unknown | + + + | Marital Status | | + + + | Confucianist Affiliation | Unknown | + + + | Race | Unknown | + + + | Ethnic Group | Unknown | + + + Author + + + | Author | [facility] | | | and [place] | + + + | Organization | [facility] | | [...] Team Providers + +------+ + | Care Administrative Professional Name | Role | Phone | + +------+ + PCP | Unavailable | + +------+ + Encounter Details +--------+ + + + + | Date | Type | Department | Care Team | Description | +--------+ + + + + | 11/07/ | Hospital | [facility] | Conversion | Diagnosis unknown | | 2017 | Encounter | CONVERSION [address] | Transaction, | | | | | [address] | Provider Unknown | | | | | [place] | [phone] | | | | | [address] | | | | | | [phone] | | | +--------+ + + + [...] | | | | | [place] | | | | | | [address] | | | | | | | [...]
--- OUTSIDE RECORDS SUMMARY | ~2019-05-14 | XMS | Encounter Summary ---
Demographics + + + | Address | [address] | | | [place] [address] | + + + | Home Phone | | + + + | Preferred Language | Unknown | + + + | Marital Status | | + + + | Quaker Affiliation | Unknown | + + + | Race | Unknown | + + + | Ethnic Group | Unknown | + + + Author + + + | Author | [facility] | | | and [place] | + + + | Organization | [facility] | | | [...] Team Providers + +------+ + | Care Digital Experience Manager Name | Role | Phone | + +------+ + PCP | Unavailable | + +------+ + Encounter Details +--------+ + + + + | Date | Type | Department | Care Team | Description | +--------+ + + + + | 11/07/ | Hospital | [facility] IP | Conversion | Diagnosis unknown | | 2017 | Encounter | [address]VERSION [address] | Transaction, | | | | | [address] | Provider Unknown | | | | | [place] | [phone] | | | | | [address] | | | | | | [phone] | | | +--------+ + + + [...] | | | | | [place] | | | | | | [address] | | | | | | | [...]
--- OUTSIDE RECORDS SUMMARY | ~2019-05-14 | XMS | Encounter Summary ---
Demographics + + + | Address | [address] | | | [place] [address] | + + + | Home Phone | | + + + | Preferred Language | Unknown | + + + | Marital Status | | + + + | Latter Day Affiliation | Unknown | + + + | Race | Unknown | + + + | Ethnic Group | Unknown | + + + Author + + + | Author | [facility] | | | and [place] | + + + | Organization | [facility] | | | [...] Team Providers + +------+ + | Care Master Control Technician Name | Role | Phone | [...] Unknown | electrocardiogram; | | | | [place], [place] | [phone] | Abnormal | | | | [address] | (Fax) | electrocardiogram | | | | [phone] | | | +--------+ + + + [...] [place] | | | | | | [address] | | | | | | | [...] 08/23/2019 | + +------+--------+ + + | [id number], | Lab | Routin | Cirrhosis of [...]
--- OUTSIDE RECORDS SUMMARY | ~2019-05-14 | XMS | Encounter Summary ---
Demographics + + + | Address | [address] | | | [place] [address] | + + + | Home Phone | | + + + | Preferred Language | Unknown | + + + | Marital Status | | + + + | Lutheran Affiliation | Unknown | + + + | Race | Unknown | + + + | Ethnic Group | Unknown | + + + Author + + + | Author | [facility] | | | and [place] | + + + | Organization | [facility] | | | [...] Team Providers + +------+ + | Care Frame Coverer Name | Role | Phone | + +------+ + PCP | Unavailable | + +------+ + Encounter Details +--------+ + + + + | Date | Type | Department | Care Team | Description | +--------+ + + + + | 11/10/ | Hospital | [facility] | Conversion | Hepatic cirrhosis, | | 2019 | Encounter | [facility] | Transaction, | unspecified hepatic | | | | [address] | Provider Unknown | cirrhosis type, | | | | [place] | [phone] | unspecified whether | | | | [address] | (Fax) | ascites present | | | | [phone] | Charles Montenegro MD | ([facility]) | | | | | [address] | | | | | | [place], [place] | | | | | | [address] | | | | | | | [...] Note by August Rodríguez RN at 11/10/18 6708 Author: August Rodríguez RN Service: General Surgery Author Type: Registered Nu rse Filed: 11/10/18 1319 Date of Service: 11/10/18 2557 Status: Signed Foreclosure Specialist: August Rodríguez, RN (Registered Nurse) 1300> Spouse [...] home with instructions. IV dc'd. onver nani Penaloza, Provider Unknown - 11/10/2018 12:20 PM PDT Nurse Progress Note by August Rodríguez RN at 11/10/18 1220 Author: August Rodríguez RN Service: General Surgery Author Type: Registered Nu rse Filed: 11/10/18 1226 Date of Service: 11/10/181219 Status: Signed Foreclosure Specialist: August Rodríguez RN (Registered Nurse) 1100> Patient [...] nted in this encounter Plan of Treatment +--------+---------+ + + + | Date | Type | Specialty | Care Team | Description | +--------+---------+ + + + | 06/07/ | Office | Cardiology | Heather Sargent DO | | | 2020 | Visit | | [address] | | | | | | [place] | | | | | | [address] | | | | | | | [...] dilated to allow placement for a 9 Senegalese | | | sheath. An MPA catheter was used to select the middle hepatic vein | | | and middle hepatic venogram was obtained. Next, hemodynamic | | | pressure measurements were obtained in the right atrium, free hepatic | | | and wedge hepatic using an occlusion balloon catheter. A TLAB | | | GoLarkera 18 gauge core biopsy needle system was [...] locally | | anesthetized with 1% lidocaine. Vdqn-atriihqepskgnl-waostp micropuncture access was | | obtained and the tract wasdilated to allow placement for a 9 Senegalese sheath. An MPA | | catheter wasused to select the middle hepatic vein and middle hepatic venogram | | wasobtained. Next, hemodynamic pressure measurements were obtained in theright atrium, | | free hepatic and wedge hepatic using an occlusion ballooncatheter. A UB Accessera 18 | | gauge core biopsy needle [...] component was performed by | | | [employer] [address] (Medical | | | Director: Anita Mcneal MD; CLIA# [id number]). Professional | | | interpretation was [facility] by [facility] | | | [address] [address] (Medical | | | Director: Cesar Bhagat M.D.; CLIA#: [id number]). Diagnostician: | | | Anita Mcneal MD [...] | | | | | performed at [facility] | | | | | | [facility];[place], [place] | | | | | | [address] | | | | + + + [...] + + + + + + | RED CELL | 4.28 | 3.70 - 5.10 | EXTERNAL | | | COUNT | | M/uL | LAB | | + + + + + + | Hgb | 12.6 | 11.3 - 15.5 | [...] | | | Basophils | performed at [facility];[address] | K/uL | LAB | | | | [address];[place], [place] | | | | | | [address] | | | | + + + [...]
--- OUTSIDE RECORDS SUMMARY | ~2019-05-14 | XMS | Encounter Summary ---
Demographics + + + | Address | [address] | | | [place] [address] | + + + | Home Phone | | + + + | Preferred Language | Unknown | + + + | Marital Status | | + + + | Methodist Affiliation | Unknown | + + + | Race | Unknown | + + + | Ethnic Group | Unknown | + + + Author + + + | Author | [facility] | | | and [place] | + + + | Organization | [facility] | | | [...] Team Providers + +------+ + | Care Clay Modeler Name | Role | Phone | + +------+ + PCP | Unavailable | + +------+ + Encounter Details +--------+ + + + + | Date | Type | Department | Care Team | Description | +--------+ + + + + | 11/10/ | Hospital | [facility] | Conversion | Hepatic cirrhosis, | | 2019 | Encounter | [facility] | Transaction, | unspecified hepatic | | | | [address] | Provider Unknown | cirrhosis type, | | | | [place] | [phone] | unspecified whether | | | | [address] | (Fax) | ascites present | | | | [phone] | Charles Montenegro MD | ([facility]) | | | | | [address] | | | | | | [place], [place] | | | | | | [address] | | | | | | | [...] Note by August Rodríguez RN at 11/10/18 9417 Author: August Rodríguez RN Service: General Surgery Author Type: Registered Nu rse Filed: 11/10/18 4490 Date of Service: 11/10/18 2439 Status: Signed Miller Supervisor: August Rodríguez, RN (Registered Nurse) 1300> Spouse [...] Author Type: Registered Nu rse Filed: 11/10/18 1225 Date of Service: 11/10/181219 Status: Signed Miller Supervisor: August Rodríguez RN (Registered Nurse) 1100> Patient [...] [place] | | | | | | [address] | | | | | | | [...] dilated to allow placement for a 9 Croatian | | | sheath. An MPA catheter was used to select the middle hepatic vein | | | and middle hepatic venogram was obtained. Next, hemodynamic | | | pressure measurements were obtained in the right atrium, free hepatic | | | and wedge hepatic using an occlusion balloon catheter. A TLAB | | | VIRIDAXISera 18 gauge core biopsy needle system was [...] locally | | anesthetized with 1% lidocaine. Jhoc-mbtlbhmesqtzot-yisfhe micropuncture access was | | obtained and the tract wasdilated to allow placement for a 9 Croatian sheath. An MPA | | catheter wasused to select the middle hepatic vein and middle hepatic venogram | | wasobtained. Next, hemodynamic pressure measurements were obtained in theright atrium, | | free hepatic and wedge hepatic using an occlusion ballooncatheter. A eBreviaera 18 | | gauge core biopsy needle [...] component was performed by | | | [facility] [address] (Medical | | | Director: Anita Mcneal MD; CLIA# [id number]). Professional | | | [facility] | | | [address] [address] (Medical | | | Director: Cesar Bhagat M.D.; CLIA#: [id number]). Diagnostician: | | | Anita Mcneal MD [...] | | | | | performed at [facility] | | | | | | [facility];[place], [place] | | | | | | [address] | | | | + + + [...] | | | Basophils | performed at [facility];[address] | [address] | LAB | | | | [address];[place], [place] | | | | | | [address] | | | | + + + [...]
--- OUTSIDE RECORDS SUMMARY | ~2019-05-14 | XMS | Encounter Summary ---
Demographics + + + | Address | [address] | | | [place] [address] | + + + | Home Phone | | + + + | Preferred Language | Unknown | + + + | Marital Status | | + + + | Episcopalian Affiliation | Unknown | + + + | Race | Unknown | + + + | Ethnic Group | Unknown | + + + Author + + + | Author | [facility] | | | and [place] | + + + | Organization | [facility] | | [...] Team Providers + +------+ + | Care Roller Leveler Name | Role | Phone | + [...] | | | | [place] | [phone] | | | | | [address] | | | | | | [phone] | | | +--------+ + + + [...] [place] | | | | | | [address] | | | | | | | | +--------+---------+ + + + documented as of this encounter Visit Diagnoses Not on filedocumented in this encounter"
--- OUTSIDE RECORDS SUMMARY | ~2019-05-14 | XMS | Encounter Summary ---
Demographics + + + | Address | [address] | | | [place] [address] | + + + | Home Phone | | + + + | Preferred Language | Unknown | + + + | Marital Status | | + + + | Alevism Affiliation | Unknown | + + + | Race | Unknown | + + + | Ethnic Group | Unknown | + + + Author + + + | Author | [facility] | | | and [place] | + + + | Organization | [facility] | | | [...] Team Providers + +------+ + | Care Cad Intern Name | Role | Phone | + +------+ + | No, Unknownpcp | PCP | | + +------+ + Encounter Details +--------+ + + + + | Date | Type | Department | Care Team | Description | +--------+ + + + + | 03/12/ | Orders Only | [facility] | Heather Sargent DO | Long QT interval | | 2019 | | CARDIOLOGY [place] | [address] | (Primary Dx) | | | | [address] | [place], [place] | | | | | [place], [place] | [address] | | | | | [address] | | | | | | [phone] | | | +--------+ + + + [...] | | | | | [address] | | | | | | [address] | | | | | | | [...] | | | | | by [facility] [place] Read Only, | | | | | | [facility] [place] ([id number]), | | | | | | makeup editor Benitez Arredondo | | | | | | ([phone]) on 03/12/2019 | | | | | [...]
--- OUTSIDE RECORDS SUMMARY | ~2019-05-14 | XMS | Encounter Summary ---
Demographics + + + | Address | [address] | | | [place] [address] | + + + | Home Phone | | + + + | Preferred Language | Unknown | + + + | Marital Status | | + + + | Restoration Affiliation | Unknown | + + + | Race | Unknown | + + + | Ethnic Group | Unknown | + + + Author + + + | Author | [facility] | | | and [place] | + + + | Organization | [facility] | | [...] Team Providers + +------+ + | Care Environmental Planner Name | Role | Phone | + +------+ + PCP | Unavailable | + +------+ + Encounter Details +--------+ + + + + | Date | Type | Department | Care Team | Description | +--------+ + + + + | 08/15/ | Orders Only | [facility] | [address] | | | 2018 | | CONVERSION [address] | [place] [address] | | | | | [place] | [address] | | | | | [place] | [place] [address] | | | | | [address] | [phone] | | | | | [phone] | | | +--------+ + + + [...] | | | | | [place] | | | | | | [address] | | | | | | | [...] Doppler was | | | perfomed at [facility]. Study: This was a technically adequate study. [...] MV A Nitin: 0.71 m/s MV Dec [place]: 5.61 | | | m/s2 MV DecT: [...] RV s': 0.11 | | | m/s Cash Management Associate: DBS Authenticated by: Heber Simmons MD Report | | | Date/Time: -- 46_6-0-2361_13:30:38 | | + + + + + | Procedure Note | + + | [facility] Conversion - 12/28/2018 1:30 PM PDT Patient Name: Mary Ch of | | : 1965 Performing Physician: Heber Simmons, | | MD INDICATIONS N | | EW MURMUR CONCLUSIONS [...] flow Doppler was perfomed | | at [facility].Study: This was a technically adequate study.Left Ventricle: [...] | | Valve: Normal appearing mitral valve. Oqrgq-ko-dKoturi Valve: ild mitral regurgitation | | is [...] | 4.49 cmLVPWd: 0.75 cmLVOT Area: 3.11 mx5NYNT Diam: 1.99 cm%FS: 37.59 %EF(Teich): | | [...] (A-L): 34.14 ml/m2LAAs A2C: 17.38 | | dj4GSHLC A-L A2C: 48.66 mlLALs A2C: 5.26 cmLAAs A4C: 18.99 gb1FRQAX A-L A4C: | | 64.56 mlLALs A4C: 4.74 cmRAAs: 15.65 nq0WBIJF A-L: 43.30 mlRAESV MOD: 43.04 | | mlRALs: 4.80 cmTAPSE: 2.66 cmAV maxP.68 mmHgAV meanP.35 mmHgAV Vmax: | | 1.55 m/Cinda Vmean: 1.08 m/Cinda VTI: 34.08 cmAVA Vmax: 2.62 cm2AVA (VTI): 2.50 | | pi6BGSK (Vmax): 0.00 cm2/m2AVAI (VTI): 0.00 cm2/m2LVOT maxP.88 mmHgLVOT | | meanP.03 mmHgLVSI Dopp: 49.25 ml/m2LVSV Dopp: 85.21 mlLVOT Vmax: 1.31 | | m/sLVOT Vmean: 0.79 m/sLVOT VTI: 27.36 cmMV A Nitin: 0.71 m/sMV Dec [place]: 5.61 | | m/s2MV DecT: 213.73 msMV E Nitin: 1.19 m/sMV E/A Ratio: 1.67MV PHT: 61.98 msMVA By | | PHT: 3.54 lq2Stephg e': 0.07 m/sSeptal E/e': 15.70Lateral e': 0.09 m/sLateral | | E/e': 12.07TR maxP.34 mmHgTR Vmax: 2.88 m/sRV s': 0.11 m/s Cash Management Associate: | | DBSAuthenticated by: Natanael Vasquez Date/Time: -- 14_4-2-0116_22:30:38 | | IMPRESSION: 1. Overall left ventricular [...] A Nitin: 0.71 m/s | |MV Dec [place]: 5.61 m/s2 | |MV DecT: 213.73 ms [...] |RV s': 0.11 m/s | | | |Cash Management Associate: DBS | |Authenticated by: Heber Simmons MD | |Report Date/Time: -- 36_2-6-0924_82:30:38 | | | |IMPRESSION: | |1. Overall [...]
--- OUTSIDE RECORDS SUMMARY | ~2019-05-14 | XMS | Encounter Summary ---
Demographics + + + | Address | [address] | | | [place] [address] | + + + | Home Phone | | + + + | Preferred Language | Unknown | + + + | Marital Status | | + + + | Holiness Affiliation | Unknown | + + + | Race | Unknown | + + + | Ethnic Group | Unknown | + + + Author + + + | Author | [facility] | | | and [place] | + + + | Organization | [facility] | | | [...] Team Providers + +------+ + | Care Refuse Driver Name | Role | Phone | + +------+ + PCP | Unavailable | + +------+ + Encounter Details +--------+ + + + + | Date | Type | Department | Care Team | Description | +--------+ + + + + | 08/15/ | Orders Only | [facility] | [address] | | | 2018 | | [address]VERSION [address] | [place] [address] | | | | | [address] | [address] | | | | | [place] | [place] [address] | | | | | [address] | [phone] | | | | | [phone] | | | +--------+ + + + [...] | | | | | [place] | | | | | | [address] | | | | | | | [...] Doppler was | | | perfomed at [facility]. Study: This was a technically adequate study. [...] MV A Nitin: 0.71 m/s MV Dec [place]: 5.61 | | | m/s2 MV DecT: [...] RV s': 0.11 | | | m/s Needle Bar Molder: DBS Authenticated by: Heber Simmons MD Report | | | Date/Time: -- 07_4-6-7304_10:30:38 | | + + + + + [...] flow Doppler was perfomed | | at [facility].Study: This was a technically adequate study.Left Ventricle: [...] | | Valve: Normal appearing mitral valve. Mlugu-gw-oXkrokd Valve: ild mitral regurgitation | | is [...] | 4.49 cmLVPWd: 0.75 cmLVOT Area: 3.11 ik2APAR Diam: 1.99 cm%FS: 37.59 %EF(Teich): | | [...] (A-L): 34.14 ml/m2LAAs A2C: 17.38 | | mp7AUDUB A-L A2C: 48.66 mlLALs A2C: 5.26 cmLAAs A4C: 18.99 sl9ADLOX A-L A4C: | | 64.56 mlLALs A4C: 4.74 cmRAAs: 15.65 uu8BQERB A-L: 43.30 mlRAESV MOD: 43.04 | | mlRALs: 4.80 cmTAPSE: 2.66 cmAV maxP.68 mmHgAV meanP.35 mmHgAV Vmax: | | 1.55 m/Cinda Vmean: 1.08 m/Cinda VTI: 34.08 cmAVA Vmax: 2.62 cm2AVA (VTI): 2.50 | | eu7HUFR (Vmax): 0.00 cm2/m2AVAI (VTI): 0.00 cm2/m2LVOT maxP.88 mmHgLVOT | | meanP.03 mmHgLVSI Dopp: 49.25 ml/m2LVSV Dopp: 85.21 mlLVOT Vmax: 1.31 | | m/sLVOT Vmean: 0.79 m/sLVOT VTI: 27.36 cmMV A Nitin: 0.71 m/sMV Dec [place]: 5.61 | | m/s2MV DecT: 213.73 msMV E Nitin: 1.19 m/sMV E/A Ratio: 1.67MV PHT: 61.98 msMVA By | | PHT: 3.54 un3Ucfzai e': 0.07 m/sSeptal E/e': 15.70Lateral e': 0.09 m/sLateral | | E/e': 12.07TR maxP.34 mmHgTR Vmax: 2.88 m/sRV s': 0.11 m/s Needle Bar Molder: | | DBSAuthenticated by: Natanael Vasquez Date/Time: -- 39_7-6-8237_62:30:38 | | IMPRESSION: 1. Overall left ventricular [...] A Nitin: 0.71 m/s | |MV Dec [place]: 5.61 m/s2 | |MV DecT: 213.73 ms [...] |RV s': 0.11 m/s | | | |Needle Bar Molder: DBS | |Authenticated by: Heber Simmons MD | |Report Date/Time: -- 38_1-7-2996_40:30:38 | | | |IMPRESSION: | |1. Overall [...]
--- OUTSIDE RECORDS SUMMARY | ~2019-05-14 | XMS | Encounter Summary ---
Demographics + + + | Address | [address] | | | [place] [address] | + + + | Home Phone | | + + + | Preferred Language | Unknown | + + + | Marital Status | | + + + | Rastafarian Affiliation | Unknown | + + + | Race | Unknown | + + + | Ethnic Group | Unknown | + + + Author + + + | Author | [facility] | | | and [place] | + + + | Organization | [facility] | | | [...] Team Providers + +------+ + | Care High School Coach Name | Role | Phone | + [...] | Tiffanie w/ | [place] [address] | [place], [place] | | | | | [place] | [place], [place] | [address] Phone: | | | | | working | [address] | [phone] | | | | | auth. 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 | Phone: | Fax: | | | | | Procedures | [phone] | [phone] | | | | | OFFICE VISIT | Fax: | | | | | | REGULAR | [phone] | | +--------+--------+ + + + + Encounter Details +--------+---------+ + + + | Date | Type | Department | Care Team | Description | +--------+---------+ + + + | 02/08/ | Office | [facility] | Heather Sargent DO | Premature | | 2019 | Visit | CARDIOLOGY [place] | [address] | ventricular | | | | [address] | [place], [place] | contractions | | | | [address] [address] | [address] | (Primary Dx); | | | | [place], [place] | | History of | | | | [address] | | palpitations; | | | | [phone] | | Prolonged Q-T | | | [...] DO - 02/08/2019 9:40 AM PDT [facility] Cardiology Consult Note Reason for Consultation: [...] cirrhosis of uncertain etiology. EK[facility] from the [facility] on demonstrates QTc of 552 [...] care of this patient. Primary Care Physician: [facility] Heather Sargent DO documented in [...] [place] | | | | | | [address] | | | | | | | [...]
--- OUTSIDE RECORDS SUMMARY | ~2019-05-14 | XMS | Clinical Summary ---
Demographics + + + | Address | [address] | | | [place] [address] | + + + | Home Phone | | + + + | Preferred Language | Unknown | + + + | Marital Status | | + + + | Scientologist Affiliation | Unknown | + + + | Race | Unknown | + + + | Ethnic Group | Unknown | + + + Author + + + | Author | [facility] | | | and [place] | + + + | Organization | [facility] | | | [...] Team Providers + +------+ + | Care Supply Chain Systems Manager Name | Role | Phone | [...] 2 times daily. | tablet | | 3/20 | | e | | mEq ER tablet | | | | 19 | | | + + + +---------+------+------+-------+ | magnesium oxide | Take 1 tablet by | 200 | 1 | 10/0 | 10/0 | Activ | | (MAG-OX) 400 mg | mouth Daily. | tablet | | 3/20 | 2/20 | e | | tablet | | | | 19 | 20 | | + + + +---------+------+------+-------+ Active [...] | 11/23/2018 | + + + Encounters +--------+ + + + + | Date | Type | Specialty | Care Team | Description | +--------+ + + + + | 03/12/ | Orders Only | Cardiology | Heather Sargent DO | Long QT interval | | 2018 | | | | (Primary Dx) | +--------+ + + + + from Last 3 Months [...] + + + + Plan of Treatment +--------+---------+ + + + | Date | Type | Specialty | Care Team | Description | +--------+---------+ + + + | 06/07/ | Office | Cardiology | Heather Sargent DO | | | 2020 | Visit | | [address] | | | | | | [place] | | | | | | [address] | | | | | | | | +--------+---------+ + + + + + + + + | Health [...] | LABS - EXTERNAL SCAN | | 02/15/2019 | | Results for this | | | | 12:00 AM | | procedure are in the | | | | PDT | | results section. | + +--------+ + + + from Last 3 Months Results LABS - EXTERNAL SCAN (02/15/2019 12:00 AM PDT) + + + | Narrative | Performed At | + + + | Ordered by an | | | unspecified provider. | | + + + from Last 3 Months Insurance + +--------+ +--------+ +---------+--------+ | Payer | Benefi | Subscriber | Effect | Phone | Address | Type | | | t Plan | ID | faustina | | | | | | / | | Dates | | | | | | Group | | | | | | + +--------+ +--------+ +---------+--------+ | [facility] | UNITED | [id number] | 05/09/19 | [phone] | | PPO | | | | | 19-Pre | 2 | | | | | HEALTH | | sent | | | | | | CARE | | | | | | | | PPO | | | | | | + +--------+ +--------+ +---------+--------+ | [facility] | [facility] | [id number] | 05/09/19 | | | Indemn | [...] Person | Self | [birth year] | | [address] | | | al/Fam | | 1965 | [phone] | [place] | | | mike | | | 3 (Home) | [address] | + +--------+ +--------+ + + Advance Directives + + + + + | Type | Date Recorded | Patient | Explanation | | | | Shorer | | + + + + + | Power of | | | | | Organic Section Technical Lead | | | | + + + + + | Advance | | | | | Directive | | | | + + + + +
--- OUTSIDE RECORDS SUMMARY | ~2019-05-14 | XMS | Clinical Summary ---
Demographics + + + | Address | [address] | | | [place] [address] | + + + | Home Phone | | + + + | Preferred Language | Unknown | + + + | Marital Status | | + + + | Yazidi Affiliation | Unknown | + + + [...] Team Providers + +------+ + | Care Pin Drafting Machine Tender Name | Role | Phone | [...] | | | | | [place] [address] | | | | | | [address] | | | | | | | [...] | + +--------+ +--------+ +---------+--------+ | [facility] | UNITED | [id number] | 05/09/19 | [phone] | | PPO | | | | | 19-Pre | 2 | | | | | HEALTH | | sent | | | | | | CARE | | | | | | | | PPO | | | | | | + +--------+ +--------+ +---------+--------+ | [facility] | 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
[~2019-05-14 22:01] MED LIST changes: +CIPROFLOXACIN500 MG PO; +FEROSUL325 MG PO; +PENICILLIN V P500 MG PO; +POTASSIUM CHLO20 ME1 PO; +VITAMIN C500 M1 PO
[2019-05-15] MEDS ORDERED: ZOFRAN4 MG PO (02:09)
[2019-05-15] MEDS ORDERED: POTASSIUM CHLO10 MEQ PO (02:09)
--- NOTE | 2019-05-15 07:06 | EKG ---
[facility] [address] [place], [place] [address] Signed Sinus tachycardia Otherwise normal ECG When compared with ECG of 26-MAY-2018 06:05, QT has shortened Confirmed by KATHY COTTRELL MD ([id number]) on 05/15/2019 7:06:37 AM Electronically Signed By: KATHY COTTRELL MD 05/15/19 0706 PATIENT NAME: SUSY DUFF Electrocardiogram DATE OF : 65 PHYSICIAN: KATHY COTTRELL MD REPORT #: [id number] REPORT IS CONFIDENTIAL AND NOT TO BE RELEASED WITHOUT AUTHORIZATION
== END 2019-05-15 02:46 | disposition home or self-care (01) ==
LOC: ED 22:01
DX: K74.60 Unspecified cirrhosis of liver (principal); R31.9 Hematuria, unspecified; F10.129 Alcohol abuse with intoxication, unspecified; Y90.8 Blood alcohol level of 240 mg/100 ml or more; F17.200 Nicotine dependence, unspecified, uncomplicated; Z88.8 Allergy status to other drugs, medicaments and biological substances; Z88.0 Allergy status to penicillin; Z79.899 Other long term (current) drug therapy
CPT/HCPCS: 71045; 74176; 80053; 81001; 83690; 83735; 84484; 85025; 85379; 93005; 93010; 96361; 96374; 99285-25; G0480; J2405; J7030

== ENCOUNTER 2019-09-04 10:23 | Emergency (ER) | payer OTHER ==
[~2019-09-04] VITALS: Ht 167.6 cm; Wt 72.6 kg
--- OUTSIDE RECORDS SUMMARY | ~2019-09-04 | XMS | Encounter Summary ---
Demographics + + + | Address | [address] | | | [place] [address] | + + + | Home Phone | | + + + | Preferred Language | Unknown | + + + | Marital Status | | + + + | Islam Affiliation | Unknown | + + + | Race | Unknown | + + + | Ethnic Group | Unknown | + + + Author + + + | Author | [facility] | | | and [place] | + + + | Organization | [facility] | | | and [...] Team Providers + +------+ + | Care Carver And Checkerer Specials Name | Role | Phone | + +------+ + | No, Unknownpcp | PCP | | + +------+ + Encounter Details +--------+ + + + + | Date | Type | Department | Care Team | Description | +--------+ + + + + | 08/23/ | Orders Only | [facility] | Conversion | | | 2019 | | CONVERSION [address] | Transaction, | | | | | [address] | Provider Unknown | | | | | [place] | [phone] | | | | | [address] | | | | | | [phone] | | | +--------+ + + + + Social History + +-------+ +--------+------+ | Tobacco Use | Types | Packs/Day | Years | Date | | | | | Used | | + +-------+ +--------+------+ | Never Assessed | | | | | + +-------+ +--------+------+ + + + | Sex Assigned at [...] as of this encounter Plan of Treatment Not on filedocumented as of this encounter Visit Diagnoses Not on filedocumented in this encounter"
--- OUTSIDE RECORDS SUMMARY | ~2019-09-04 | XMS | Encounter Summary ---
Demographics + + + | Address | [address] | | | [place] [address] | + + + | Home Phone | | + + + | Preferred Language | Unknown | + + + | Marital Status | | + + + | Orthodox Affiliation | Unknown | + + + | Race | Unknown | + + + | Ethnic Group | Unknown | + + + Author + + + | Author | [facility] | | | and [place] | + + + | Organization | [facility] | | | and [...] Team Providers + +------+ + | Care Media Producer Name | Role | Phone | + +------+ + PCP | Unavailable | + +------+ + Encounter Details +--------+ + + + + | Date | Type | Department | Care Team | Description | +--------+ + + + + | 11/07/ | Hospital | [facility] | Conversion | Diagnosis unknown | | 2017 | Encounter | CONVERSION [address] | Transaction, | | | | | [address] | Provider Unknown | | | | | [place] | [phone] | | | | | [address] | | | | | | [phone] | | | +--------+ + + + [...] Not on filedocumented as of this encounter Procedures + +--------+ + + + | Procedure Name | Priori | Date/Time | Associated Diagnosis | Comments | | | ty | | | | + +--------+ + + + | CT CERVICAL SPINE WO | Routin | 11/07/2016 | | Results for this | | CONTRAST | e | 3:12 PM | | procedure are in the | | | | PDT | | results section. | + +--------+ + + + documented in this encounter Results CT Cervical Spine wo Contrast (11/07/2016 3:12 PM PDT) + + | Specimen | + + | | + + + + + | Narrative | Performed At | + + + | This is a non-reportable procedure without a radiologist report and | | | is used for image storage only | | + + + + + | Procedure Note | + + | [facility] Shira - 12/21/2018 9:08 AM PDT This is a non-reportable procedure | | without a radiologist report and isused for image storage only | + + documented in this encounter Visit Diagnoses + + | Diagnosis | + + | Diagnosis unknown Other unknown and unspecified cause of morbidity or mortality | + + documented in this encounter"
--- OUTSIDE RECORDS SUMMARY | ~2019-09-04 | XMS | Clinical Summary ---
Demographics + + + | Address | [address] | | | [place] [address] | + + + | Home Phone | | + + + | Preferred Language | Unknown | + + + | Marital Status | | + + + | Episcopalian Affiliation | Unknown | + + + | Race | Unknown | + + + | Ethnic Group | Unknown | + + + Author + + + | Author | [facility] | | | and [place] | + + + | Organization | [facility] | | | and [...] Team Providers + +------+ + | Care Booth Cashier Name | Role | Phone | + +------+ + | No, Unknownpcp | PCP | | + +------+ + Allergies + + + + + + | Active Allergy | Reactions | Severity | Noted | Comments | | | | | Date | | + + + + + + | Pseudoephedrine | Shortness Of Breath, | High | 08/24/19 | | | | Rash | | 19 | | + + + + + + Medications + + + +---------+------+------+-------+ | Medication | Sig | Dispensed | Refills | Star | End | Statu | | | | | | t | Date | s | | | | | | Date | | | + + + +---------+------+------+-------+ | IRON PO | Take by mouth. | | 0 | 04/1 | | Activ | | | | | | 7/20 | | e | | | | | | 19 | | | + + + +---------+------+------+-------+ | Ascorbic Acid | Take by mouth. | | 0 | 04/1 | | Activ | | (VITAMIN C PO) | | | | 7/20 | | e | | | | | | 19 | | | + + + +---------+------+------+-------+ | Calcium | Take by mouth. | | 0 | 07/1 | | Activ | | Carbonate-Vit D-Min | | | | 820 | | e | | (CALCIUM 1200 PO) | | | | 19 | | | + + + +---------+------+------+-------+ | Multiple | Take 1 tablet by | | 0 | / | | Activ | | Vitamins-Minerals | mouth daily. | | | 8 | | e | | (MULTIVITAMIN WITH | | | | 19 | | | | MINERALS) tablet | | | | | | | + + + +---------+------+------+-------+ | propranolol | Take 1 capsule by | 30 | 11 | 11/06 | 11/06 | Activ | | (INDERAL LA) 60 mg | mouth daily. | capsule | | 8/20 | 720 | e | | SR capsule | | | | 19 | 20 | | + + + +---------+------+------+-------+ | potassium chloride | Take 1 tablet by | 30 | 5 | 10/0 | | Activ | | (KLOR-CON M20) 20 | mouth 2 times daily. | tablet | | 3/ | | e | | mEq ER tablet | | | | 19 | | | + + + +---------+------+------+-------+ | spironolactone | Take 0.5 tablets by | 30 | 11 | 05/11 | | Activ | | (ALDACTONE) 25 mg | mouth Daily. | tablet | | 0/20 | | e | | tablet | | | | 20 | | | + + + +---------+------+------+-------+ | magnesium oxide | Take 1 tablet by | 200 | 1 | 05/11 | 05/10 | Activ | | (MAG-OX) 400 mg | mouth 2 times daily. | tablet | | 0/20 | 9/20 | e | | tablet | | | | 20 | 21 | | + + + +---------+------+------+-------+ Active Problems + + + | Problem | Noted Date | + + + | Long QT interval | 11/23/2018 | + + + | Hypokalemia | 11/23/2018 | + + + | Other cirrhosis of liver | 11/23/2018 | + + + | Tobacco dependence | 11/23/2018 | + + + | Moderate tricuspid insufficiency | 11/23/2018 | + + + Encounters +--------+---------+ + + + | Date | Type | Specialty | Care Team | Description | +--------+---------+ + + + | 06/07/ | Office | Cardiology | Heather Sargent DO | Premature | | 2020 | Visit | | | ventricular | | | | | | contractions | | | | | | (Primary Dx); | | | | | | Prolonged Q-T | | | | | | interval on ECG; | | | | | | Long QT interval; | | | | | | Hypokalemia | +--------+---------+ + + + from Last 3 Months Family History + + +------+ + | Medical History | Relation | Name | Comments | + + +------+ + | Diabetes, NIDDM | Father | | | + + +------+ + | Cancer | Mother | | breast cancer | + + +------+ + + +------+ + + | Relation | Name | Status | Comments | + +------+ + + | Father | | | | + +------+ + + | Father | | | | + +------+ + + | Mother | | | | + +------+ + + | Mother | | | | + +------+ + + Social History + +-------+ +--------+------+ [...] recent travel history available. | + + Last Filed Vital Signs + + + + + | Vital Sign | Reading | Time Taken | Comments | + + + + + | Blood Pressure | 100/62 | 06/07/2019 9:29 AM | | | | | PST | | + + + + + | Pulse | 80 | 06/07/2019 9:29 AM | | | | | PST | | + + + + + | Temperature | 36.6 C (97.8 F) | 11/10/2018 1:19 PM | | | | | PDT | | + + + + + | Respiratory Rate | 17 | 11/10/2018 1:19 PM | | | | | PDT | | + + + + + | Oxygen Saturation | 98% | 06/07/2019 9:29 AM | | | | | PST | | + + + + + | Inhaled Oxygen | - | - | | | Concentration | | | | + + + + + | Weight | 76.7 kg (169 lb) | 06/07/2019 9:29 AM | | | | | PST | | + + + + + | Height | 165.1 cm (5' 5") | 06/07/2019 9:29 AM | | | | | PST | | + + + + + | Body Mass Index | 28.12 | 06/07/2019 9:29 AM | | | | | PST | | + + + + + Plan of Treatment + + + + + | Health Maintenance | Due Date | Last Done | Comments | + + + + + | Hepatitis C | | | | | Screening | 5 | | | + + + + + | Vaccine: | | | | | Pneumococcal 19-64 | 1 | | | | (1 of 1 - PPSV23) | | | | + + + + + | Vaccine: | | | | | Dtap/Tdap/Td (1 - | 6 | | | | Tdap) | | | | + + + + + | Cervical Cancer | | | | | Screening (Pap) | 5 | | | + + + + + | Breast Cancer | | | | | Screening | 0 | | | + + + + + | Colorectal Cancer | | | | | Screening | 5 | | | | (Colonoscopy) | | | | + + + + + | Vaccine: Zoster (1 | | | | | of 2) | 5 | | | + + + + + | Vaccine: Influenza | | | | | (Season Ended) | 0 | | | + + + + + Procedures + +--------+ + + + | Procedure Name | Priori | Date/Time | Associated Diagnosis | Comments | | | ty | | | | + +--------+ + + + | LABS - EXTERNAL SCAN | | 06/08/2019 | | Results for this | | | | 12:00 AM | | procedure are in the | | | | PST | | results section. | + +--------+ + + + | ECG 12 LEAD | Routin | 06/07/2019 | Premature | Results for this | | | e | 9:40 AM | ventricular | procedure are in the | | | | PST | contractions | results section. | + +--------+ + + + from Last 3 Months Results LABS - EXTERNAL SCAN (06/08/2019 12:00 AM PST) + + + | Narrative | Performed At | + + + | Ordered by an | | | unspecified provider. | | + + + ECG 12 lead (06/07/2019 9:40 AM PST) + + + + + + | Component | Value | Ref Range | Performed | Pathologist | | | | | At | Signature | + + + + + + | VENTRICULAR | 69 | BPM | [facility] | | | RATE EKG | | | | | + + + + + + | ATRIAL RATE | 69 | BPM | [facility] | | + + + + + + | P-R | 136 | ms | [facility] | | | INTERVAL | | | | | + + + + + + | QRS | 78 | ms | [facility] | | | DURATION | | | | | + + + + + + | Q-T | 448 | ms | [facility] | | | INTERVAL | | | | | + + + + + + | Q-T | 480 | ms | [facility] | | | INTERVAL | | | | | | (CORRECTED) | | | | | + + + + + + | P WAVE AXIS | 41 | degrees | [facility] | | + + + + + + | QRS AXIS | 61 | degrees | [facility] | | + + + + + + | T AXIS | 50 | degrees | [facility] | | + + + + + + | INTERPRETAT | Normal sinus | | [facility] | | | ION TEXT | rhythmProlonged | | | | | | QTAbnormal ECGWhen | | | | | | compared with ECG of | | | | | | 08-FEB-2019 09:55,No | | | | | | significant change was | | | | | | foundConfirmed by WILFREDO | | | | | | HEATHER ACOSTA ([id number]) on | | | | | | 06/08/2019 8:28:36 PM | | | | + + + [...] | | | + +---------+ + + from Last 3 Months Insurance + +--------+ +--------+ +---------+--------+ | Payer | Benefi | Subscriber | Effect | Phone | Address | Type | | | t Plan | ID | faustina | | | | | | / | | Dates | | | | | | Group | | | | | | + +--------+ +--------+ +---------+--------+ | [employer] | UNITED | [id number] | 05/09/19 | [phone] | | PPO | | | | | 19-Pre | 2 | | | | | HEALTH | | sent | | | | | | CARE | | | | | | | | PPO | | | | | | + +--------+ +--------+ +---------+--------+ | [employer] | [employer] | [id number] | 05/09/19 | | | Indemn | | SERVICE | YELLOW | | 19-Pre | | | ity | | | HAWK | | sent | | | | + +--------+ +--------+ +---------+--------+ + +--------+ +--------+ + + | Guarantor Name | Accoun | Relation to | Date | Phone | Billing Address | | | t Type | Patient | of | | | | | | | | | | + +--------+ +--------+ + + | Nan Ch | Person | Self | [birth year] | [address] | | | al/Fam | | 1965 | [phone] | [place] | | | mike | | | 3 (Home) | [address] | + +--------+ +--------+ + + Advance Directives + + + + + | Type | Date Recorded | Patient | Explanation | | | | Insole Taper | | + + + + + | Power of | | | | | Coffee Break Attendant | | | | + + + + + | Advance | | | | | Directive | | | | + + + + +
--- OUTSIDE RECORDS SUMMARY | ~2019-09-04 | XMS | Encounter Summary ---
Demographics + + + | Address | [address] | | | [place] [address] | + + + | Home Phone | | + + + | Preferred Language | Unknown | + + + | Marital Status | | + + + | Evangelical Affiliation | Unknown | + + + | Race | Unknown | + + + | Ethnic Group | Unknown | + + + Author + + + | Author | [facility] | | | and [place] | + + + | Organization | [facility] | | | [...] Team Providers + +------+ + | Care Corset Maker Name | Role | Phone | + [...] | | | | MARLEN BAKER | [phone] | | | | | [address] | | | | | | [phone] | | | +--------+ + + + [...]
--- OUTSIDE RECORDS SUMMARY | ~2019-09-04 | XMS | Encounter Summary ---
Demographics + + + | Address | [address] | | | [place] [address] | + + + | Home Phone | | + + + | Preferred Language | Unknown | + + + | Marital Status | | + + + | Orthodox Affiliation | Unknown | + + + | Race | Unknown | + + + | Ethnic Group | Unknown | + + + Author + + + | Author | [facility] | | | and [place] | + + + | Organization | [facility] | | | and [...] Team Providers + +------+ + | Care Psychological Operations Officer Name | Role | Phone | + +------+ + PCP | Unavailable | + +------+ + Encounter Details +--------+ + + + + | Date | Type | Department | Care Team | Description | +--------+ + + + + | 11/07/ | Hospital | [facility] | Conversion | Diagnosis unknown | | 2017 | Encounter | CONVERSION [address] | Transaction, | | | | | [address] | Provider Unknown | | | | | [place] | [phone] | | | | | [address] | | | | | | [phone] | | | +--------+ + + + [...]
--- OUTSIDE RECORDS SUMMARY | ~2019-09-04 | XMS | Clinical Summary ---
Demographics + + + | Address | [address] | | | [place] [address] | + + + | Home Phone | | + + + | Preferred Language | Unknown | + + + | Marital Status | | + + + | Yarsanism Affiliation | Unknown | + + + | Race | Unknown | + + + | Ethnic Group | Unknown | + + + Author + + + | Author | [facility] (Historical as of | | | 12-23-18) | + + + | Organization | [facility] (Historical as of | | | 12-23-18) [...] Team Providers + +------+ + | Care Flight Director Name | Role | Phone | + [...] | | | + +--------+ +------+-------+---------+ | [facility] | [place] | [id number] | | | | | | | | | | | | | HEALTH | | | | | | | CARE - | | | | | | | [facility]LC | | | | | + +--------+ +------+-------+---------+ | [facility] | YELLOW | [id number] | | | | | PLANS | [...] | Self | [birth year] | Home: | [address] | | | al/Fam | | 1965 | [phone] [place] | | | mike | | | [phone] | [phone] | + +--------+ +--------+ + +
--- OUTSIDE RECORDS SUMMARY | ~2019-09-04 | XMS | Encounter Summary ---
Demographics + + + | Address | [address] | | | [place] [address] | + + + | Home Phone | | + + + | Preferred Language | Unknown | + + + | Marital Status | | + + + | Anabaptist Affiliation | Unknown | + + + | Race | Unknown | + + + | Ethnic Group | Unknown | + + + Author + + + | Author | [facility] | | | and [place] | + + + | Organization | [facility] | | | [...] Team Providers + +------+ + | Care Urgent Care Technician Name | Role | Phone | + +------+ + | No, Unknownpcp | PCP | | + +------+ + Reason for Visit + + + | Reason | Comments | + + + | Appointment | called pt back | + + + Encounter Details +--------+ + + + + | Date | Type | Department | Care Team | Description | +--------+ + + + + | 05/23/ | Telephone | [facility] | Sonia Melo, | Appointment (called | | 2019 | | GASTROENTEROLOGY | [address] | pt back) | | | | [address] | [place] [address] | | | | | [place], [place] | [phone] | | | | | [address] | | | | | | [phone] | | | +--------+ + + + [...]
--- OUTSIDE RECORDS SUMMARY | ~2019-09-04 | XMS | Encounter Summary ---
Demographics + + + | Address | [address] | | | [place] [address] | + + + | Home Phone | | + + + | Preferred Language | Unknown | + + + | Marital Status | | + + + | Buddhism Affiliation | Unknown | + + + | Race | Unknown | + + + | Ethnic Group | Unknown | + + + Author + + + | Author | [facility] | | | and [place] | + + + | Organization | [facility] | | | and [...] Team Providers + +------+ + | Care Pharmacist Critical Care Name | Role | Phone | + [...] Unknown | electrocardiogram; | | | | [place], [place] | [phone] | Abnormal | | | | [address] | (Fax) | electrocardiogram | | | | [phone] | | | +--------+ + + + [...] as of this encounter Plan of Treatment + +------+--------+ + + | Name | [...] 08/23/2019 | + +------+--------+ + + | [id number], | Lab | Routin | Cirrhosis of [...]
--- OUTSIDE RECORDS SUMMARY | ~2019-09-04 | XMS | Encounter Summary ---
Demographics + + + | Address | [address] | | | [place] [address] | + + + | Home Phone | | + + + | Preferred Language | Unknown | + + + | Marital Status | | + + + | Christianity Affiliation | Unknown | + + + | Race | Unknown | + + + | Ethnic Group | Unknown | + + + Author + + + | Author | [facility] | | | and [place] | + + + | Organization | [facility] | | [...] Team Providers + +------+ + | Care Turret Lathe Operator Name | Role | Phone | + +------+ + PCP | Unavailable | + +------+ + Encounter Details +--------+ + + + + | Date | Type | Department | Care Team | Description | +--------+ + + + + | 11/10/ | Hospital | [facility] | Conversion | Hepatic cirrhosis, | | 2019 | Encounter | [facility] | Transaction, | unspecified hepatic | | | | [address] | Provider Unknown | cirrhosis type, | | | | [address] BAKER | [phone] | unspecified whether | | | | [address] | (Fax) | ascites present | | | | [phone] | Charles Montenegro MD | ([facility]) | | | | | [address] | | | | | | [place], [place] | | | | | | [address] | | | | | | | | +--------+ + + + [...] + + documented as of this encounter Medications at Time of Discharge + + + +---------+ + + | Medication | Sig | Dispensed | Refills | Start | End Date | | | | | | Date | | + + + +---------+ + + | Ascorbic Acid | Take by mouth. | | 0 | 08/24/19 | | | (VITAMIN C PO) | | | | 19 | | + + + +---------+ + + | IRON PO | Take by mouth. | | 0 | 08/24/19 | | | | | | | 19 | | + + + +---------+ + + documented as of this encounter Progress Notes Conversion Transaction, Provider Unknown - 11/10/2018 1:17 PM PDTFormatting of this note m ight be different from the original. Nurse Progress Note by August Rodríguez RN at 11/10/18 1117 Author: August Rodríguez RN Service: General Surgery Author Type: Registered Nu rse Filed: 11/10/18 0538 Date of Service: 11/10/18 6898 Status: Signed Research Program Internship: August Rodríguez, RN (Registered Nurse) 1300> Spouse arrived after calling x2 without messages being left. Went over d/c instructio ns with patient and spouse D/C instructions/education included: -Post Anesthesia care -Pain medication education -Stool softner education -Bowel protocol -Monitoring intake/output -Incision care -Dressing care -Infection monitoring including signs and symptoms of infection. -DVT education -Activity restriction -Diet -When to call MD/call 911 -Make/keep appointments. States understanding. D/c home with all belongings. D/c home with instructions. IV dc'd. onver nani Transaction, Provider Unknown - 11/10/2018 12:20 PM PDT Nurse Progress Note by August Rodríguez RN at 11/10/18 1220 Author: uAgust Rodríguez RN Service: General Surgery Author Type: Registered Nu rse Filed: 11/10/18 1229 Date of Service: 11/10/181219 Status: Signed Research Program Internship: August Rodríguez RN (Registered Nurse) 1100> Patient arrived to phase 2 resting in stretcher. Denies pain. Dressing to right side of chest/neck has scant amount of sero/sang drainage to it. Resting with head lowered per or ders 1200> Head elevated per MD orders after 1 hour. No issues with drainage or blood pressures with position change. Continues to deny pain. Asking for snack and applesauce. Spouse not in waiting room. Call to cell phone and unable to leave message. Continue to monitor. docume nted in this encounter Plan of Treatment Not on filedocumented as of this encounter Procedures + +--------+ + + + | Procedure Name | Priori | Date/Time | Associated Diagnosis | Comments | | | ty | | | | + +--------+ + + + | IR TRANSCATHETER | Routin | 11/10/2018 | | Results for this | | BIOPSY | e | 10:32 AM | | procedure are in the | | | | PDT | | results section. | + +--------+ + + + | TISSUE REQUEST FOR | Routin | 11/10/2018 | | Results for this | | PATHOLOGY (NON-ORD) | e | 10:30 AM | | procedure are in the | | | | PDT | | results section. | + +--------+ + + + | US GUIDED VASCULAR | Routin | 11/10/2018 | | Results for this | | ACCESS | e | 9:56 AM | | procedure are in the | | | | PDT | | results section. | + +--------+ + + + | EXTERNAL LAB: CBC | Routin | 11/10/2018 | | Results for this | | | e | 7:25 AM | | procedure are in the | | | | PDT | | results section. | + +--------+ + + + | PROTIME INR | Routin | 11/10/2018 | | Results for this | | | e | 7:25 AM | | procedure are in the | | | | PDT | | results section. | + +--------+ + + + documented in this encounter Results IR Transcatheter Biopsy (11/10/2018 10:32 AM PDT) + + | Specimen | + + | | + + + + + | Impressions | Performed At | + + + | 1. Transhepatic pressure gradient of 16 mm mercury consistent with | | | portal hypertension. 2. Extremely firm cirrhotic liver which | | | limited ability to obtain core specimens as described. Pathology | | | pending. If specimen is inadequate for diagnosis, another brand of | | | transjugular liver core biopsy system will need to be ordered in | | | prior to re-attempt. Signed by: Geovany Montenegro Howard Sign Date/Time: | | | 11/10/2018 10:52 AM | | + + + + + + | Narrative | Performed At | + + + | ULTRASOUND AND FLUORO-GUIDED TRANSJUGULAR LIVER BIOPSY HEMODYNAMIC | | | TRANSHEPATIC PRESSURE MEASUREMENTS MIDDLE HEPATIC VENOGRAM CLINICAL | | | INFORMATION: Cryptogenic cirrhosis and ascites with spontaneously | | | elevated INR. COMPARISON: None. PROCEDURE: The risks, benefits and | | | alternatives were discussed with the patient; consent was obtained | | | and placed in the patient's chart. The risks included but were not | | | limited to bleeding, infection, pneumothorax, allergic reaction and | | | . The patient was then brought to the procedure room and placed | | | in the supine position where the right side of the neck was sterilely | | | prepped and draped in the usual fashion. The skin overlying the | | | right internal jugular vein was locally anesthetized with 1% | | | lidocaine. Real-time ultrasound-guided micropuncture access was | | | obtained and the tract was dilated to allow placement for a 9 Estonian | | | sheath. An MPA catheter was used to select the middle hepatic vein | | | and middle hepatic venogram was obtained. Next, hemodynamic | | | pressure measurements were obtained in the right atrium, free hepatic | | | and wedge hepatic using an occlusion balloon catheter. A [employer]LAB | | | Dextera 18 gauge core biopsy needle system was then advanced and | | | fired to obtain hepatic core specimens. However, the liver was | | | extremely hard and small fragments of liver were obtained. Upon | | | review of fluoroscopic imaging, it was apparent that the cutting tray | | | of the core biopsy needle was not fully deploying secondary to the | | | firmness of the liver. Total of 3 devices were used trying to obtain | | | adequate specimens with multiple throws of each of the devices. | | | The biopsy device was then removed. The sheath was removed and | | | manual compression was applied until hemostasis was achieved. Fluoro | | | Time: 9.9 minutes the total number of images: 5 Medications: 4 mg | | | Versed and 225 mcg fentanyl were administered intravenously for | | | conscious sedation. The conscious sedation nurse who monitored the | | | blood pressure, heart rate, and pulse oximeter during the examination | | | administered the medications. The patient was monitored for | | | approximately 50 minutes. FINDINGS: The ultrasound demonstrated a | | | widely patent and compressible right internal jugular vein, images in | | | PACS. Middle hepatic venogram is normal without evidence of | | | stenosis. Surgical clips from prior cholecystectomy noted. | | | Hemodynamic pressure measurements (mean mm mercury): Right atrial 9, | | | free hepatic 6, wedge hepatic 23. Trans hepatic gradient is 16 mm | | | mercury consistent with portal hypertension. | | + + + + + | Procedure Note | + + | [facility] Conversion - 12/19/2018 9:31 PM PDT ULTRASOUND AND FLUORO-GUIDED | | TRANSJUGULAR LIVER BIOPSYHEMODYNAMIC TRANSHEPATIC PRESSURE MEASUREMENTSMIDDLE HEPATIC | | VENOGRAMCLINICAL INFORMATION:Cryptogenic cirrhosis and ascites with spontaneously | | elevated INR.COMPARISON:None.PROCEDURE:The risks, benefits and alternatives were | | discussed with the patient;consent was obtained and placed in the patient's chart. The | | risksincluded but were not limited to bleeding, infection, pneumothorax,allergic | | reaction and .The patient was then brought to the procedure room and placed in | | thesupine position where the right side of the neck was sterilely preppedand draped in | | the usual fashion. The skin overlying the right internaljugular vein was locally | | anesthetized with 1% lidocaine. Okvl-aocvvpltxxcxor-gbxvma micropuncture access was | | obtained and the tract wasdilated to allow placement for a 9 Estonian sheath. An MPA | | catheter wasused to select the middle hepatic vein and middle hepatic venogram | | wasobtained. Next, hemodynamic pressure measurements were obtained in theright atrium, | | free hepatic and wedge hepatic using an occlusion ballooncatheter. A [employer] 18 | | gauge core biopsy needle system was thenadvanced and fired to obtain hepatic core | | specimens. However, theliver was extremely hard and small fragments of liver were | | obtained.Upon review of fluoroscopic imaging, it was apparent that the cuttingtray of | | the core biopsy needle was not fully deploying secondary to thefirmness of the liver. | | Total of 3 devices were used trying to obtainadequate specimens with multiple throws of | | each of the devices. Thebiopsy device was then removed. The sheath was removed and | | manualcompression was applied until hemostasis was achieved.Fluoro Time: 9.9 minutes the | | total number of images: 5Medications:4 mg Versed and 225 mcg fentanyl were | | administered intravenously forconscious sedation. The conscious sedation nurse who | | monitored theblood pressure, heart rate, and pulse oximeter during the | | examinationadministered the medications. The patient was monitored forapproximately 50 | | minutes.FINDINGS:The ultrasound demonstrated a widely patent and compressible | | rightinternal jugular vein, images in PACS.Middle hepatic venogram is normal without | | evidence of stenosis.Surgical clips from prior cholecystectomy noted.Hemodynamic | | pressure measurements (mean mm mercury): Right atrial 9,free hepatic 6, wedge hepatic | | 23. Trans hepatic gradient is 16 mmmercury consistent with portal | | hypertension.IMPRESSION: 1. Transhepatic pressure gradient of 16 mm mercury consistent | | withportal hypertension.2. Extremely firm cirrhotic liver which limited ability to | | obtain corespecimens as described. Pathology pending. If specimen is inadequatefor | | diagnosis, another brand of transjugular liver core biopsy systemwill need to be ordered | | in prior to re-attempt.Signed by: Geovany Montenegro HowardSign Date/Time: 11/10/2018 10:52 AM | |administered the medications. The patient was monitored for | |approximately 50 minutes. | |FINDINGS: | |The ultrasound demonstrated a widely patent and compressible right | |internal jugular vein, images in PACS. | |Middle hepatic venogram is normal without evidence of stenosis. | |Surgical clips from prior cholecystectomy noted. | |Hemodynamic pressure measurements (mean mm mercury): Right atrial 9, | |free hepatic 6, wedge hepatic 23. Trans hepatic gradient is 16 mm | |mercury consistent with portal hypertension. | |IMPRESSION: | |1. Transhepatic pressure gradient of 16 mm mercury consistent with | |portal hypertension. | |2. Extremely firm cirrhotic liver which limited ability to obtain core | |specimens as described. Pathology pending. If specimen is inadequate | |for diagnosis, another brand of transjugular liver core biopsy system | |will need to be ordered in prior to re-attempt. | |Signed by: Geovany Montenegro Howard | |Sign Date/Time: 11/10/2018 10:52 AM | + + Tissue Request For Pathology (11/10/2018 10:30 AM PDT) + + | Specimen | + + | | + + + + + | Narrative | Performed At | + + + | SPECIMEN(S): A LIVER SPECIMEN SOURCE: A. LIVER CLINICAL HISTORY: | EXTERNAL LAB | | Cryptogenic cirrhosis. FINAL PATHOLOGIC DIAGNOSIS: Liver, needle | | | core biopsies: - Cirrhosis of uncertain etiology. See description | | | and comment. COMMENT: Additional clinical information provided via | | | review of Epic notes indicate that the patient's viral serologies are | | | negative, RYNE is negative, AMA, anti-smooth muscle antibody and serum | | | copper studies are normal, and the patient has unexplained cirrhosis | | | of unknown etiology. Unfortunately, by histology, a specific etiology | | | cannot be determined, and the findings are consistent with cryptogenic | | | cirrhosis. Interpretation is limited by small sample size. Clinical | | | correlation is indicated. AMB:emb:C2NR MICROSCOPIC EXAMINATION: | | | Small, fragmented biopsies of hepatic tissue are reviewed. Only two | | | partial portal triads are available for evaluation. The predominant | | | finding is that of cirrhosis, characterized by regenerative nodule | | | formation, and highlighted by trichrome and reticulin stains. The | | | single portal tract demonstrates bile ducts without evidence of | | | granulomata, ductulitis or ductopenia. There is a lymphocytic | | | inflammatory infiltrate which is nonspecific. Interface hepatitis is | | | not appreciated. Iron stain does not reveal increased hepatocellular | | | iron deposition, and PAS with diastase does not reveal intracellular | | | inclusions to suggest alpha-1 antitrypsin deficiency. Overall, the | | | findings are nonspecific, and interpretation is limited by small | | | sample size. GROSS DESCRIPTION: The specimen, labeled "LS, liver," | | | is received in formalin and consists of several pieces of dark red | | | tissue fragment that measure up to 0.1 cm in greatest dimension. The | | | specimen is inked with eosin Specimen is entirely submitted in | | | cassette (A1). JS (under the direct supervision of a pathologist) | | | The Gross Description was prepared using a voice recognition system. | | | The report was reviewed for accuracy; however, sound-alike word | | | errors, addition and/or deletions may occur. If there is any | | | question about this report, please contact Client Services. | | | PERFORMING LABORATORY: The technical component was performed by | | | [email or web address], [address] [place] [id number] (Medical | | | Director: Anita Mcneal MD; CLIA# [id number]). Professional | | | interpretation was performed by [email or web address] | | | [address] [address] (Medical | | | Director: Cesar Bhagat M.D.; CLIA#: [id number]). Diagnostician: | | | Anita Mcneal MD Pathologist Electronically Signed 11/14/2018 | | + + + + +---------+ + + | Performing | Address | City/State/Zipcode | Phone Number | | Organization | | | | + +---------+ + + | EXTERNAL LAB | | | | + +---------+ + + US Guided Vascular Access (11/10/2018 9:56 AM PDT) + + | Specimen | + + | | + + + + + | Narrative | Performed At | + + + | This Point of Care (POC) ultrasound image has been reviewed and | | | interpreted by the physician identified as the performing physician in | | | the associated interpretation and report. | | + + + + + | Procedure Note | + + | [facility] - 12/19/2018 9:31 PM PDT This Point of Care (POC) ultrasound | | image has been reviewed andinterpreted by the physician identified as the performing | | physician in theassociated interpretation and report. | | | + + Protime INR (11/10/2018 7:25 AM PDT) + + + + + + | Component | Value | Ref Range | Performed | Pathologist | | | | | At | Signature | + + + + + + | INR | 1.2Comment: REFERENCE | | EXTERNAL | | | | RANGE:0.9 - 1.2 | | LAB | | | | NON-ANTICOAGULATED2.0 | | | | | | - 3.0 ALL OTHER | | | | | | THERAPEUTIC | | | | | | INDICATIONS2.5 - 3.5 | | | | | | MECHANICAL HEART VALVES, | | | | | | RECURRENT OR SYSTEMIC | | | | | | EMBOLISMTesting | | | | | | performed at [facility] | | | | | | [facility];[place], [place] | | | | | | [address] | | | | + + + + + + + + | Specimen | + + | Blood specimen | | (specimen) | + + + +---------+ + + | Performing | Address | City/State/Zipcode | Phone Number | | Organization | | | | + +---------+ + + | EXTERNAL LAB | | | | + +---------+ + + External Lab: CBC (11/10/2018 7:25 AM PDT) + + + + + + | Component | Value | Ref Range | Performed | Pathologist | | | | | At | Signature | + + + + + + | WBC | 4.63 | 3.80 - 11.00 | EXTERNAL | | | | | K/uL | LAB | | + + + + + + | Red Blood | 4.28 | 3.70 - 5.10 | EXTERNAL | | | Cells | | M/uL | LAB | | | Counted | | | | | + + + + + + | Hemoglobin | 12.6 | 11.3 - 15.5 | EXTERNAL | | | | | g/dL | LAB | | + + + + + + | Hematocrit, | 37.4 | 34.0 - 46.0 % | EXTERNAL | | | POC | | | LAB | | + + + + + + | MCV | 87.4 | 80.0 - 100.0 fl | EXTERNAL | | | | | | LAB | | + + + + + + | MCH | 29.4 | 27.0 - 34.0 pg | EXTERNAL | | | | | | LAB | | + + + + + + | MCHC | 33.7 | 32.0 - 35.5 | EXTERNAL | | | | | g/dL | LAB | | + + + + + + | RDW-CV | 49.0 | 37 - 53 fl | EXTERNAL | | | | | | LAB | | + + + + + + | Platelet | 142 (L) | 150 - 400 K/uL | EXTERNAL | | | Count | | | LAB | | | Plasma | | | | | + + + + + + | MPV | 7.5 | fl | EXTERNAL | | | | | | LAB | | + + + + + + | Differentia | AUTOMATED | | EXTERNAL | | | l Type | | | LAB | | + + + + + + | % Segmented | 46.12 | % | EXTERNAL | | | | | | LAB | | | Neutrophils | | | | | + + + + + + | % | 34.23 | % | EXTERNAL | | | Lymphocytes | | | LAB | | + + + + + + | % Monocytes | 10.83 | % | EXTERNAL | | | | | | LAB | | + + + + + + | % | 7.40 | % | EXTERNAL | | | Eosinophils | | | LAB | | + + + + + + | % Basophils | 1.42 | % | EXTERNAL | | | | | | LAB | | + + + + + + | Absolute | 2.14 | 1.90 - 7.40 | EXTERNAL | | | Segmented | | K/uL | LAB | | | Neutrophils | | | | | + + + + + + | Absolute | 1.58 | 1.00 - 3.90 | EXTERNAL | | | Lymphocytes | | K/uL | LAB | | + + + + + + | Absolute | 0.50 | 0.00 - 0.80 | EXTERNAL | | | Monocytes | | K/uL | LAB | | + + + + + + | Absolute | 0.34 | 0.00 - 0.50 | EXTERNAL | | | Eosinophils | | K/uL | LAB | | + + + + + + | Absolute | 0.07Comment: Testing | 0.00 - 0.10 | EXTERNAL | | | Basophils | performed at [facility];[address] | K[address] | LAB | | | | [address];[place] | | | | | | [address] | | | | + + + + + + + + | Specimen | + + | Blood specimen | | (specimen) | + + + +---------+ + + | Performing | Address | City/State/Zipcode | Phone Number | | Organization | | | | + +---------+ + + | EXTERNAL LAB | | | | + +---------+ + + documented in this encounter Visit Diagnoses + + | Diagnosis | + + | Hepatic cirrhosis, unspecified hepatic cirrhosis type, unspecified whether ascites | | present (HCC) | + + documented in this encounter
--- OUTSIDE RECORDS SUMMARY | ~2019-09-04 | XMS | Encounter Summary ---
Demographics + + + | Address | [address] | | | [place] [address] | + + + | Home Phone | | + + + | Preferred Language | Unknown | + + + | Marital Status | | + + + | Jainism Affiliation | Unknown | + + + | Race | Unknown | + + + | Ethnic Group | Unknown | + + + Author + + + | Author | [facility] | | | and [place] | + + + | Organization | [facility] | | | and [place] | + + + | Address | Unknown | + + + | Phone | Unavailable | + + + Support + + +---------+ + | Name | Relationship | Address | Phone | + + +---------+ + | Genevieve Duff | ECON | Unknown | | + + +---------+ + Care Team Providers + +------+ + | Care Polish Compounder Name | Role | Phone | + +------+ + | No, Unknownpcp | PCP | | + +------+ + Reason for Visit + + + | Reason | Comments | + + + | Follow-up | 2 month / BARDY | + + + Evaluate & Treat (Routine) +--------+--------+ + + + + | Status | Reason | Specialty | Diagnoses / | Referred By | Referred To | | | | | Procedures | Contact | Contact | +--------+--------+ + + + + | Closed | | Cardiology | Diagnoses | Sargent, | Sargent, | | | | | 2 month | Heather DO | Heather DO | | | | | f/u, | [address] | [address] | | | | | monitor. Per | [address] | [place] | | | | | Tiffanie w/ | [place] | [place], [place] | | | | | [address] | [place], [place] | [address] Phone: | | | | | working | [address] | [phone] | | | | | auth. rn compliance | Phone: | Fax: | | | | | Procedures | [phone] | [phone] | | | | | OFFICE VISIT | Fax: | | | | | | REGULAR | [phone] | | +--------+--------+ + + + + Encounter Details +--------+---------+ + + + | Date | Type | Department | Care Team | Description | +--------+---------+ + + + | 02/08/ | Office | [facility] | Heather Sargent DO | Premature | | 2019 | Visit | CARDIOLOGY [place] | [address] | ventricular | | | | [address] | [place], [place] | contractions | | | | [address] | [address] | (Primary Dx); | | | | [place], [place] | | History of | | | | [address] | | palpitations; | | | | [phone] | | Prolonged Q-T | | | | | | interval on ECG; | | | | | | Moderate tricuspid | | | | | | insufficiency | +--------+---------+ + + + Social History + +-------+ [...] + + documented as of this encounter Last Filed Vital Signs + + + + + | Vital Sign | Reading | Time Taken | Comments | + + + + + | Blood Pressure | 98/60 | 02/08/2019 9:49 AM | | | | | PDT | | + + + + + | Pulse | 64 | 02/08/2019 9:49 AM | | | | | PDT | | + + + + + | Temperature | - | - | | + + + + + | Respiratory Rate | - | - | | + + + + + | Oxygen Saturation | 100% | 02/08/2019 9:49 AM | | | | | PDT | | + + + + + | Inhaled Oxygen | - | - | | | Concentration | | | | + + + + + | Weight | 76.2 kg (168 lb) | 02/08/2019 9:49 AM | | | | | PDT | | + + + + + | Height | 165.1 cm (5' 5") | 02/08/2019 9:49 AM | | | | | PDT | | + + + + + | Body Mass Index | 27.96 | 02/08/2019 9:49 AM | | | | | PDT | | + + + + + documented in this encounter Progress Notes Heather Sargent DO - 02/08/2019 9:40 AM PDT [facility] Cardiology Cardiology Consult Note Reason for Consultation: QT prolongation Requesting Physician: Ashely Loera History Obtained From: patient HISTORY OF PRESENT ILLNESS: The patient is a 53-year-old female who presents to the Cardiology office for initial consu ltation regarding QT prolongation. The patient had recent hospitalization in 05/2018. She was sent to the hospital due to profound hypokalemia, which was noted by her primary care do ctors office as well as an acute kidney injury. During the hospitalization, she was also di agnosed with new onset hepatic cirrhosis of uncertain etiology. [facility] Q[facility] 552 and 574. She was also noted to have UTI during that admission an d was sent home with a fluoroquinolone antibiotic. Today, her EKG demonstrates a QTc of 494 . Recently, the patients doing well. She reports that she tries to stay active dur ing the summer, but does not partake in any regular exercise. She denies any exertional bennie st pains or shortness of breath. She denies any recent palpitations. Prior to the hospital ization, she did notice some fluttering in her chest, which would last about 20 seconds, the n resolve. She had about 2-3 episodes prior to admission. She denied any other associated symptoms. She denied any episodes of lightheadedness or syncope. She denies ever having an y prior syncopal or presyncopal episodes. Recently, she denies any palpitations whatsoever. She denies any lower extremity swelling, orthopnea, PND. She had a recent echocardiogram, which demonstrated an ejection fraction of 60-65 percent, moderate tricuspid regurgitation, normal right ventricular size and function, and a right ventricular systolic pressure of 38 mmHg. She denies any family history of any cardiac problems, she did have a brother and a sister that had cirrhosis. Her brother was a heavy drinker, her sisters cirrhosis was of un clear etiology. She denies any family history of sudden cardiac or cardiac arrhythmia s. Interim history I last saw the patient on 11/23/2018. At that time, I added propranolol to her medical catracho men. We also ordered a 1 week body monitor and obtain blood work including a BMP and magnes ium level. She was advised to avoid drugs that prolong the QT interval. Her 1 week body mo nitor was negative for any arrhythmia except for rare PACs and PVCs. The patient had blood work done on November 29 which demonstrated a magnesium of 1.7 and a potassium of 3.3. This was while she was on potassium 20 mEq by mouth daily. EKG done today demonstrates normal sinus rhythm with a QTC of 488 ms. She reports that she has been doing well lately. She denies any palpitations. She denies any episodes of syncope or pre-syncope. She has been tolerati ng propranolol well. She reports that the medication does make her a little tired and she h as been taking it at night. Review of Systems Constitutional: Negative for fatigue. HENT: Negative for nosebleeds. Eyes: Negative for visual disturbance. Respiratory: Negative for cough and shortness of breath. Cardiovascular:see HPI Gastrointestinal: Negative for nausea, vomiting, abdominal pain and blood in stool. Genitourinary: Negative for hematuria or dysuria. Musculoskeletal: Negative for myalgias, back pain and arthralgias. Skin: Negative for color change. Neurological: Negative for dizziness, syncope and numbness. Hematological: Does not bruise/bleed easily. Psychiatric/Behavioral: The patient is not nervous/anxious. PAST MEDICAL & SURGICAL HISTORY Past Medical History Diagnosis Date Anemia Cardiac arrhythmia Cholelithiasis Hepatic cirrhosis (HCC) Past Surgical History Procedure Laterality Date CHOLECYSTECTOMY LIVER BIOPSY TUBAL LIGATION MEDICATIONS Home Medications Outpatient Encounter Prescriptions as of 11/23/2018 Medication Sig Dispense Refill Ascorbic Acid (VITAMIN C PO) Take by mouth. Calcium Carbonate-Vit D-Min (CALCIUM 1200 PO) Take by mouth. IRON PO Take by mouth. Multiple Vitamins-Minerals (MULTIVITAMIN WITH MINERALS) tablet Take 1 tablet by mouth d aily. potassium chloride SA (K-DUR,KLOR-CON) 20 MEQ tablet Take 1 tablet by mouth daily. 30 t ablet 5 [DISCONTINUED] potassium chloride SA (K-DUR,KLOR-CON) 20 MEQ tablet Take 20 mEq by mout h daily. 0 [DISCONTINUED] potassium chloride SA (K-DUR,KLOR-CON) 20 MEQ tablet Take 1 tablet by mo uth daily. 30 tablet 5 propranolol (INDERAL LA) 60 MG 24 hr capsule Take 1 capsule by mouth daily. 30 capsule 11 [DISCONTINUED] propranolol (INDERAL LA) 60 MG 24 hr capsule Take 1 capsule by mouth richelle ly. 30 capsule 11 No facility-administered encounter medications on file as of 11/23/2018. Allergies Allergies Allergen Reactions Sudafed [Pseudoephedrine] Shortness of Breath and Rash FAMILY HISTORY Family History Problem Relation Age of Onset Cancer Mother breast cancer Diabetes type II Father SOCIAL HISTORY Social History Social History Marital status: Spouse name: N/A Number of children: N/A Years of education: N/A Occupational History Not on file. Social History Main Topics Smoking status: Current Some Day Smoker Packs/day: 0.25 Years: 20.00 Last attempt to quit: 05/09/2018 Smokeless tobacco: Former User Comment: used to chew as a kid. Alcohol use No Drug use: No Sexual activity: Not on file Other Topics Concern Not on file Social History Narrative No narrative on file PHYSICAL EXAM Vitals: 02/08/19 0949 BP: 98/60 Pulse: 64 SpO2: 100% Weight: 76.2 kg (168 lb) Height: 1.651 m (5' 5") Physical Exam GENERAL: Well developed, well nourished, in no distress. Appears approximately stated age . HEENT: Normocephalic, atraumatic. EYES: PERRL, sclerae anicteric, no xanthelsasmas NECK: No JVD, lymphadenopathy, thyromegaly, bruits. Carotid pulses are 2+ bilaterally LUNGS: Clear bilaterally, with no rales, rhonchi or wheezing noted, respirations unlabored HEART: Nondisplaced PMI, regular rate and rhythm, S1, S2 normal. Soft systolic murmur pres ent, No rubs or gallops noted. ABDOMEN: Soft, nontender, no masses or bruits. Bowel sounds are normal in all 4 quadrants . EXTREMITIES: No edema. Radial pulses 2+ bilaterally. DP and PT pulses are 2+ bilaterally. SKIN: Warm and dry, capillary refill is normal, no lesions. NEUROLOGIC: Awake, alert and oriented x 3. No focal motor deficits. PSYCHIATRIC: Appropriate, affect appears normal DATA Results for NAN DUFF ( ) as of 11/23/2018 11:09 Ref. Range 11/10/2018 07:25 WBC Latest Ref Range: 3.80 - 11.00 K/uL 4.63 RBC Latest Ref Range: 3.70 - 5.10 M/uL 4.28 HGB Latest Ref Range: 11.3 - 15.5 g/dL 12.6 HCT Latest Ref Range: 34.0 - 46.0 % 37.4 MCV Latest Ref Range: 80.0 - 100.0 fl 87.4 MCH Latest Ref Range: 27.0 - 34.0 pg 29.4 MCHC Latest Ref Range: 32.0 - 35.5 g/dL 33.7 RDW Latest Ref Range: 37 - 53 fl 49.0 Platelets Latest Ref Range: 150 - 400 K/uL 142 (L) EK11/23/2018 ordered and reviewed by myself normal sinus rhythm 67 bpm, QTC 494 ms 02/08/2019 ordered and reviewed by myself sinus bradycardia 58 bpm, QTC 488 ms Last Echo: 08/25/18 Impression 1. Overall left ventricular systolic function is normal with an EF between 60 - 65%. 2. The right ventricle is normal in size and function. 3. Moderate tricuspid regurgitation is present. 4. There is borderline pulmonary hypertension. Last stress test: Last cath: Carotid US: AAA screening: Lower extremity US: OTHERS: 12/04/18 Procedure: Continuous ambulatory ECG for the duration of 6 days and 1 hour. During this re cording, the underlying rhythm is Sinus, the lowest heart rate was 52 BPM, the highest heart rate 115 BPM, averaging 80 BPM. During this recording interval, rare PACs and PVCs present . No AV conduction abnormalities observed. no ischemia detected. The heart rate trends d id demonstrate a normal circadian pattern. In the patient's diary, no symptoms reported. ASSESSMENT & PLAN 1. Prolonged QT 2. Hypokalemia 3. Cirrhosis 4. Current tobacco habituation 5. Moderate TR -The patient is a 53-year-old female who presents to the cardiology office for follow up re garding prolonged QT interval seen on EKG from May. She has never had a syncopal or pres yncopal episode. At last visit, we started low-dose propranolol 60 mg by mouth daily. Re cent blood work demonstrates hypokalemia and hypomagnesemia. Her QTC today is 488 ms. She had a recent 1 week ambulatory monitor which was negative for arrhythmia. -Increase potassium chloride to 40 mEq by mouth daily -Mg oxide 400 mg grams by mouth daily -Obtain blood work including a BMP and magnesium level one week after making these changes - Continue propranolol LA 60 mg by mouth daily. - Drugs that are known to prolong QT interval should be avoided - follow up in 3 months Thank you for allowing me to participate in the care of this patient. Primary Care Physician: [facility] Heather Sargent DO documented in this enco unter Plan of Treatment + +------+--------+ + + | Name | Type | Priori | Associated Diagnoses | Order Schedule | | | | ty | | | + +------+--------+ + + | ECG 12 lead | ECG | Routin | Premature | Ordered: 02/08/2019 | | | | e | ventricular | | | | | | contractions | | | | | | History of | | | | | | palpitations | | + +------+--------+ + + | Basic Metabolic | Lab | Routin | Prolonged Q-T | Expected: | | Panel | | e | interval on ECG | 02/15/2019, Expires: | | | | | | 02/09/2020 | + +------+--------+ + + | Magnesium | Lab | Routin | Prolonged Q-T | Expected: | | | | e | interval on ECG | 02/15/2019, Expires: | | | | | | 02/09/2020 | + +------+--------+ + + documented as of this encounter Visit Diagnoses + + | Diagnosis | + + | Premature ventricular contractions - Primary Other premature beats | + + | History of palpitations | + + | Prolonged Q-T interval on ECG Nonspecific abnormal electrocardiogram (ECG) (EKG) | + + | Moderate tricuspid insufficiency Diseases of tricuspid valve | + + documented in this encounter
--- OUTSIDE RECORDS SUMMARY | ~2019-09-04 | XMS | Encounter Summary ---
Demographics + + + | Address | [address] | | | [place] [address] | + + + | Home Phone | | + + + | Preferred Language | Unknown | + + + | Marital Status | | + + + | Caodaism Affiliation | Unknown | + + + | Race | Unknown | + + + | Ethnic Group | Unknown | + + + Author + + + | Author | [facility] | | | and [place] | + + + | Organization | [facility] | | | [...] Team Providers + +------+ + | Care Automatic Cigar Wrapper Tender Name | Role | Phone | + [...] | Tiffanie w/ | [address] | [place], [place] | | | | | [address] | [place], [place] | [address] Phone: | | | | | working | [address] | [phone] | | | | | auth. trial lawyer | Phone: | Fax: | | | | | Procedures | [phone] | [phone] | | | | | OFFICE VISIT | Fax: | | | | | | REGULAR | [phone] | | +--------+--------+ + + + + Encounter Details +--------+---------+ + + + | Date | Type | Department | Care Team | Description | +--------+---------+ + + + | 02/08/ | Office | [facility] | Heather Sargent DO | Premature | | 2019 | Visit | CARDIOLOGY [place] | [address] | ventricular | | | | [address] | [place], [place] | contractions | | | | [address] | [address] | (Primary Dx); | | | | [place], [place] | | History of | | | | [address] | | palpitations; | | | | [phone] | | Prolonged Q-T | | | [...] Sargent DO - 02/08/2019 9:40 AM PDT [facility] Cardiology Cardiology Consult Note Reason for [...] cirrhosis of uncertain etiology[facility] and 574. [...] care of this patient. Primary Care Physician: [facility] Heather Sargent DO documented in this [...]
--- OUTSIDE RECORDS SUMMARY | ~2019-09-04 | XMS | Encounter Summary ---
Demographics + + + | Address | [address] | | | [place] [address] | + + + | Home Phone | | + + + | Preferred Language | Unknown | + + + | Marital Status | | + + + | Scientology Affiliation | Unknown | + + + | Race | Unknown | + + + | Ethnic Group | Unknown | + + + Author + + + | Author | [facility] | | | and [place] | + + + | Organization | [facility] | | | [...] Team Providers + +------+ + | Care Outside Machinist Apprentice Name | Role | Phone | + +------+ + | No, Unknownpcp | PCP | | + +------+ + Reason for Visit + + + | Reason | Comments | + + + | Follow-up | 3 month / labs | + + + Evaluate & Treat (Routine) +--------+--------+ + + + + | Status | Reason | Specialty | Diagnoses / | Referred By | Referred To | | | | | Procedures | Contact | Contact | +--------+--------+ + + + + | Closed | | Cardiology | Diagnoses | Ezekielvalerie, | Rosetta, | | | | | Abnormal | Ashely Seals, | DO Heather | | | | | electrocardi | [place] [address] | [address] | | | | | ogram (ECG) | | DR [address]ARTINE[address] | | | | | (EKG) | [place] | [place], [place] | | | | | Procedures | WAY | [address] Phone: | | | | | FOLLOW UP | [place], | [phone] | | | | | | [place] [address] | Fax: | | | | | | Phone: | [phone] | | | | | | [phone] | | | | | | | Fax: | | | | | | | [phone] | | +--------+--------+ + + + + Encounter Details +--------+---------+ + + + | Date | Type | Department | Care Team | Description | +--------+---------+ + + + | 06/07/ | Office | [facility] | Heather Sargent DO | Premature | | 2020 | Visit | CARDIOLOGY [place] | [address] | ventricular | | | | [address] | [place], [place] | contractions | | | | [address] | [address] | (Primary Dx); | | | | [place] | | Prolonged Q-T | | | | [address] | | interval on ECG; | | | | [phone] | | Long QT interval; | | | | | | Hypokalemia | +--------+---------+ + + + Social History [...] + + + documented in this encounter Patient Instructions Patient Instructions Heather Sargent DO - 06/07/2019 9:40 AM PSTSTART taking Spironolactone 0.5 tablets by mouth daily DECREASE your potassium supplement to once daily INCREASE your magnesium supplement to twice daily Please get blood work in one week 9 :48 AM PST documented in this encounter Progress Notes Heather Sargent DO - 06/07/2019 9:40 AM PST [facility] Cardiology Cardiology Consult Note Reason [...] cirrhosis of uncertain etiology. EKGs from [facility] on demonstrates QTc of 552 and 574. [...] of sudden cardiac or cardiac arrhythmia s. I saw the patient on 11/23/2018. At that time, I added propranolol to her medical regimen. We also ordered a 1 week Bardi monitor and obtain blood work including a BMP and magnesium level. She was advised to avoid drugs that prolong the QT interval. Her 1 week body monito r was negative for any arrhythmia except for rare PACs and PVCs. The patient had blood work done on November 29 which demonstrated a magnesium of 1.7 and a potassium of 3.3. This was whi le she was on potassium 20 mEq by mouth daily. EKG done today demonstrates normal sinus rhy thm with a QTC of 488 ms. She reports that she has been doing well lately. She denies any palpitations. She denies any episodes of syncope or pre-syncope. She has been tolerating p ropranolol well. She reports that the medication does make her a little tired and she has b een taking it at night. Interim history I last saw the patient on 02/08/2019. At that time, she was noted to have persistently low potassium and magnesium levels. We increased her potassium chloride to 40 mEq by mouth richelle ly and added magnesium oxide 400 mg by mouth daily. Since we last saw each other, she has b een doing fairly well. She denies any episodes of palpitations. She denies any episodes of syncope or presyncope. She did have one episode where she drank alcohol around . She went to the ER after this for abdominal discomfort. She was noted to have low potass ium and low magnesium then. She reports that she has not been drinking alcohol on a regular basis and was only during this one episode. Her most recent blood work demonstrates her po tassium level is 3.2 and her magnesium level is 1.5. EKG today has a QTc of 480 millisecond s. Review of Systems Constitutional: Negative for fatigue. [...] 20 MEQ tablet Take 1 tablet by [facility] daily. 30 tablet 5 propranolol (INDERAL LA) [...] No narrative on file PHYSICAL EXAM Vitals: 06/07/19 0929 BP: 100/62 Pulse: 80 SpO2: 98% Weight: 76.7 kg (169 lb) Height: 1.651 m (5' 5") Physical [...] deficits. PSYCHIATRIC: Appropriate, affect appears normal DATA Blood work from 05/14/2019 reviewed including sodium 146, potassium 3.2, chloride 107, ca rbon dioxide 25, glucose 75, BUN 7, creatinine 0.77, AST 82, ALT 25, alkaline phosphatase 12 6, total bilirubin 1.3, albumin 3.4, magnesium 1.5. White blood cell count 7.6, hemoglobin 12.9, hematocrit 38.8, platelets 137. EK06/07/2019 normal sinus rhythm 69 bpm, QTC 480ms 05/14/2019 sinus tachycardia 106 bpm, QTC 515 ms. 11/23/2018 ordered and reviewed by myself normal sinus [...] ASSESSMENT & PLAN 1. Prolonged QT 2. Hypokalemia/hypomagnesemia 3. Cirrhosis 4. Current tobacco habituation 5. Moderate TR -The patient is a 53-year-old female who presents to the cardiology office for follow up re garding prolonged QT interval seen on EKG from May. She has never had a syncopal or pres yncopal episode. We started low-dose propranolol 60 mg by mouth daily. Recent blood work d emonstrates hypokalemia and hypomagnesemia. Her QTC today is 480 ms. She had a recent 1 we ek ambulatory monitor which was negative for arrhythmia. - Add spironolactone 12.5 mg by mouth daily - Decrease potassium supplement to 20 mEq by mouth daily - Increase Mg oxide to 400 mg grams by mouth twice daily - Obtain blood work including a BMP and magnesium level one week after making these changes - Continue propranolol LA 60 mg by mouth daily. - Drugs that are known to prolong QT interval should be avoided - follow up in 3 months Thank you for allowing me to participate in the care of this patient. Primary Care Physician: [facility] Heather Sargent DO documented in this enco unter Plan of Treatment + +------+--------+ + + | Name | Type | Priori | Associated Diagnoses | Order Schedule | | | | ty | | | + +------+--------+ + + | Basic Metabolic | Lab | Routin | Prolonged Q-T | Expected: | | Panel | | e | interval on ECG | 06/14/2019, Expires: | | | | | | 06/07/2020 | + +------+--------+ + + | Magnesium | Lab | Routin | Prolonged Q-T | Expected: | | | | e | interval on ECG | 06/14/2019, Expires: | | | | | | 06/07/2020 | + +------+--------+ + + documented as [...] + + documented in this encounter Results LABS - EXTERNAL SCAN (06/08/2019 12:00 [...] | | | | | foundConfirmed by ROSETTA | | | | | | HEATHER [...] Other premature beats | + + | Prolonged Q-T interval on ECG Nonspecific abnormal electrocardiogram (ECG) (EKG) | + + | Long QT interval Nonspecific abnormal electrocardiogram (ECG) (EKG) | + + | Hypokalemia Hypopotassemia | + + documented in this encounter
--- OUTSIDE RECORDS SUMMARY | ~2019-09-04 | XMS | Encounter Summary ---
Demographics + + + | Address | [address] | | | [place] [address] | + + + | Home Phone | | + + + | Preferred Language | Unknown | + + + | Marital Status | | + + + | Mormon Affiliation | Unknown | + + + | Race | Unknown | + + + | Ethnic Group | Unknown | + + + Author + + + | Author | [facility] | | | and [place] | + + + | Organization | [facility] | | | and [...] Team Providers + +------+ + | Care Electrical Cad Technician Name | Role | Phone | + +------+ + PCP | Unavailable | + +------+ + Encounter Details +--------+ + + + + | Date | Type | Department | Care Team | Description | +--------+ + + + + | 08/15/ | Orders Only | [facility] | Ashely [facility] | | | 2018 | | CONVERSION [address] | [place] [address] | | | | | [address] | [place] | | | | | MARLEN [address]AKER | [place] [address] | | | | | [address] | [phone] | | | | | [phone] | | | +--------+ + + + [...] | + +--------+ + + + | ECHO INTERPRETATION | Routin | 08/15/2018 | | Results for this | | OF OUTSIDE FILMS | e | 11:48 AM | | procedure are in the | | | | PDT | | results section. | + +--------+ + + + documented in this encounter Results ECHO Interpretation of Outside Films (08/15/2018 11:48 AM PDT) + + | Specimen | + + | | + + + + + | Impressions | Performed At | + + + | 1. Overall left ventricular systolic function is normal with an EF | | | between 60 - 65%. 2. The right ventricle is normal in size and | | | function. 3. Moderate tricuspid regurgitation is present. 4. There | | | is borderline pulmonary hypertension. | | + + + + + + | Narrative | Performed At | + + + | Patient Name: Nan Ch Date of : 1965 | | | Performing Physician: Heber Simmons MD | | | | | | INDICATIONS [place] CONCLUSIONS 1. | | | Overall left ventricular systolic function is normal with an EF | | | between 60 - 65%. 2. The right ventricle is normal in size and | | | function. 3. Moderate tricuspid regurgitation is present. 4. There | | | is borderline pulmonary hypertension. FINDINGS -------- ECG | | | rhythm: Sinus rhythm. Study: A 2-dimensional transthoracic | | | echocardiogram with m-mode, spectral and color flow Doppler was | | | perfomed at [facility]. Study: This was a technically adequate study. Left | | | Ventricle: Overall left ventricular systolic function is normal with | | | an EF between 60 - 65%. Left Ventricle: The left ventricle cavity | | | size is normal. Left Ventricle: Left ventricular wall thickness is | | | normal. Left Ventricle: No regional wall motion abnormalities. Left | | | Ventricle: Assessment of diastolic function is indeterminate. Right | | | Ventricle: The right ventricle is normal in size and function. Left | | | Atrium: The left atrium is at the upper limits of normal in size. | | | Right Atrium: The right atrium is normal in size. Aortic Valve: The | | | aortic valve is trileaflet, and appears anatomically normal. No aortic | | | stenosis or regurgitation. Mitral Valve: Normal appearing mitral | | | valve. Trace-to-m Mitral Valve: ild mitral regurgitation is | | | present. Mitral Valve: No evidence of MVP. Tricuspid Valve: The | | | tricuspid valve appears structurally normal. Tricuspid Valve: | | | Moderate tricuspid regurgitation is present. Tricuspid Valve: The | | | right ventricular systolic pressure (pulmonary artery systolic | | | pressure), as measured by Doppler, is 38.6 mm Hg. Tricuspid Valve: | | | There is borderline pulmonary hypertension. Pulmonic Valve: Pulmonic | | | valve appears structurally normal. Pulmonic Valve: No pulmonic valve | | | regurgitation observed. Pericardium: There is no pericardial | | | effusion. IVC/Hepatic Veins: The inferior vena cava is normal in size | | | and collapses > 50 % with sniff, indicating normal central venous | | | pressures. Aorta: The aortic root, ascending aorta and aortic arch | | | are normal. Pulmonary Veins: The flow patterns, measured by Doppler, | | | appear normal. Mass: No mass visualized Thrombus: No clot visualized | | | Thrombus: No vegetation visualized. Septum: No ASD observed. | | | Septum: No VSD observed. MEASUREMENTS Ao asc: | | | 3.00 cm Ao sinus: 2.[address] junct: 2.48 cm IVC: 2.02 | | | cm LA Diam: 3.63 cm EDV(Teich): 92.36 ml IVSd: 0.81 cm | | | LVIDd: 4.49 cm LVPWd: 0.75 cm LVOT Area: 3.11 cm2 LVOT | | | Diam: 1.99 cm %FS: 37.59 % EF(Teich): 67.80 % ESV(Teich): | | | 29.74 ml LVIDs: 2.80 cm SV(Teich): 62.62 ml RV Major: | | | 7.01 cm RV Minor: 2.99 cm LVEF MOD A2C: 66.32 % SV MOD A2C: | | | 97.54 ml LVEF MOD A4C: 57.03 % SV MOD A4C: 59.71 ml EF | | | Biplane: 61.53 % LVEDV MOD BP: 130.63 ml LVESV MOD BP: | | | 50.25 ml LVEDV MOD A2C: 147.07 ml LVLd A2C: 8.97 cm LVEDV MOD | | | A4C: 104.69 ml LVLd A4C: 8.06 cm LVESV MOD A2C: 49.53 ml | | | LVLs A2C: 7.21 cm LVESV MOD A4C: 44.98 ml LVLs A4C: 6.31 cm | | | LAESV(A-L): 59.07 ml LAESV Index (A-L): 34.14 ml/m2 LAAs | | | A2C: 17.38 cm2 LAESV A-L A2C: 48.66 ml LALs A2C: 5.26 cm | | | LAAs A4C: 18.99 cm2 LAESV A-L A4C: 64.56 ml LALs A4C: 4.74 | | | cm RAAs: 15.65 cm2 RAESV A-L: 43.30 ml RAESV MOD: 43.04 ml | | | RALs: 4.80 cm TAPSE: 2.66 cm AV maxP.68 mmHg AV | | | meanP.35 mmHg AV Vmax: 1.55 m/s AV Vmean: 1.08 m/s AV | | | VTI: 34.08 cm VICTORIA Vmax: 2.62 cm2 VICTORIA (VTI): 2.50 cm2 AVAI | | | (Vmax): 0.00 cm2/m2 AVAI (VTI): 0.00 cm2/m2 LVOT maxPG: | | | 6.88 mmHg LVOT meanP.03 mmHg LVSI Dopp: 49.25 ml/m2 LVSV | | | Dopp: 85.21 ml LVOT Vmax: 1.31 m/s LVOT Vmean: 0.79 m/s | | | LVOT VTI: 27.36 cm MV A Nitin: 0.71 m/s MV Dec [place]: 5.61 | | | m/s2 MV DecT: 213.73 ms MV E Nitin: 1.19 m/s MV E/A Ratio: | | | 1.67 MV PHT: 61.98 ms MVA By PHT: 3.54 cm2 Septal e': 0.07 | | | m/s Septal E/e': 15.70 Lateral e': 0.09 m/s Lateral E/e': | | | 12.07 TR maxP.34 mmHg TR Vmax: 2.88 m/s RV s': 0.11 | | | m/s Delivery Crew Member: MIHAI Authenticated by: Heber Simmons MD Report | | | Date/Time: -- [id number]:38 | | + + + + + | Procedure Note | + + | [facility] Conversion - 12/28/2018 1:30 PM PDT Patient Name: Mary Ch of | | : 1965 Performing Physician: Heber Simmons, | | INDICATIONS N | | [place] CONCLUSIONS 1. Overall left ventricular systolic function is normal | | with an EF between 60 - 65%.2. The right ventricle is normal in size and function.3. | | Moderate tricuspid regurgitation is present.4. There is borderline pulmonary | | hypertension. FINDINGS--------ECG rhythm: Sinus rhythm.Study: A 2-dimensional | | transthoracic echocardiogram with m-mode, spectral and color flow Doppler was perfomed | | at [facility].Study: This was a technically adequate study.Left Ventricle: Overall left | | ventricular systolic function is normal with an EF between 60 - 65%.Left Ventricle: The | | left ventricle cavity size is normal.Left Ventricle: Left ventricular wall thickness is | | normal.Left Ventricle: No regional wall motion abnormalities.Left Ventricle: Assessment | | of diastolic function is indeterminate.Right Ventricle: The right ventricle is normal in | | size and function.Left Atrium: The left atrium is at the upper limits of normal in | | size.Right Atrium: The right atrium is normal in size.Aortic Valve: The aortic valve is | | trileaflet, and appears anatomically normal. No aortic stenosis or regurgitation.Mitral | | Valve: Normal appearing mitral valve. [id number]-[id number] Valve: ild mitral regurgitation | | is present.Mitral Valve: No evidence of MVP.Tricuspid Valve: The tricuspid valve appears | | structurally normal.Tricuspid Valve: Moderate tricuspid regurgitation is | | present.Tricuspid Valve: The right ventricular systolic pressure (pulmonary artery | | systolic pressure), as measured by Doppler, is 38.6 mm Hg.Tricuspid Valve: There is | | borderline pulmonary hypertension.Pulmonic Valve: Pulmonic valve appears structurally | | normal.Pulmonic Valve: No pulmonic valve regurgitation observed.Pericardium: There is no | | pericardial effusion.IVC/Hepatic Veins: The inferior vena cava is normal in size and | | collapses > 50 % with sniff, indicating normal central venous pressures.Aorta: The | | aortic root, ascending aorta and aortic arch are normal.Pulmonary Veins: The flow | | patterns, measured by Doppler, appear normal.Mass: No mass visualizedThrombus: No clot | | visualizedThrombus: No vegetation visualized.Septum: No ASD observed.Septum: No VSD | | observed. MEASUREMENTS Ao asc: 3.00 cmAo sinus: 2.[address] junct: | | 2.48 cmIVC: 2.02 cmLA Diam: 3.63 cmEDV(Teich): 92.36 mlIVSd: 0.81 cmLVIDd: | | 4.49 cmLVPWd: 0.75 cmLVOT Area: 3.11 zb1UPDS Diam: 1.99 cm%FS: 37.59 %EF(Teich): | | 67.80 %ESV(Teich): 29.74 mlLVIDs: 2.80 cmSV(Teich): 62.62 mlRV Major: 7.01 | | cmRV Minor: 2.99 cmLVEF MOD A2C: 66.32 %SV MOD A2C: 97.54 mlLVEF MOD A4C: 57.03 | | %SV MOD A4C: 59.71 mlEF Biplane: 61.53 %LVEDV MOD BP: 130.63 mlLVESV MOD BP: | | 50.25 mlLVEDV MOD A2C: 147.07 mlLVLd A2C: 8.97 cmLVEDV MOD A4C: 104.69 mlLVLd A4C: | | 8.06 cmLVESV MOD A2C: 49.53 mlLVLs A2C: 7.21 cmLVESV MOD A4C: 44.98 mlLVLs A4C: | | 6.31 cmLAESV(A-L): 59.07 mlLAESV Index (A-L): 34.14 ml/m2LAAs A2C: 17.38 | | [id number] A-L A2C: 48.66 mlLALs A2C: 5.26 cmLAAs A4C: 18.99 ph5YDUEK A-L A4C: | | 64.56 mlLALs A4C: 4.74 cmRAAs: 15.65 [id number] A-L: 43.30 mlRAESV MOD: 43.04 | | mlRALs: 4.80 cmTAPSE: 2.66 cmAV maxP.68 mmHgAV meanP.35 mmHgAV Vmax: | | 1.55 m/Cinda Vmean: 1.08 m/Cinda VTI: 34.08 cmAVA Vmax: 2.62 cm2AVA (VTI): 2.50 | | [id number] (Vmax): 0.00 cm2/m2AVAI (VTI): 0.00 cm2/m2LVOT maxP.88 mmHgLVOT | | meanP.03 mmHgLVSI Dopp: 49.25 ml/m2LVSV Dopp: 85.21 mlLVOT Vmax: 1.31 | | m/sLVOT Vmean: 0.79 m/sLVOT VTI: 27.36 cmMV A Nitin: 0.71 m/sMV Dec [place]: 5.61 | | m/s2MV DecT: 213.73 msMV E Nitin: 1.19 m/sMV E/A Ratio: 1.67MV PHT: 61.98 msMVA By | | PHT: 3.54 cm5Uaqqrp e': 0.07 m/sSeptal E/e': 15.70Lateral e': 0.09 m/sLateral | | E/e': 12.07TR maxP.34 mmHgTR Vmax: 2.88 m/sRV s': 0.11 m/s Delivery Crew Member: | | DBSAuthenticated by: [facility] Date/Time: -- [id number]:[id number] | | IMPRESSION: 1. Overall left ventricular systolic function is normal with an EF between | | 60 - 65%.2. The right ventricle is normal in size and function.3. Moderate tricuspid | | regurgitation is present.4. There is borderline pulmonary hypertension. | | | |MEASUREMENTS | | | |Ao asc: 3.00 cm | |Ao sinus: 2.87 cm | |Ao st junct: 2.48 cm | |IVC: 2.02 cm | |LA Diam: 3.63 cm | |EDV(Teich): 92.36 ml | |IVSd: 0.81 cm | |LVIDd: 4.49 cm | |LVPWd: 0.75 cm | |LVOT Area: 3.11 cm2 | |LVOT Diam: 1.99 cm | |%FS: 37.59 % | |EF(Teich): 67.80 % | |ESV(Teich): 29.74 ml | |LVIDs: 2.80 cm | |SV(Teich): 62.62 ml | |RV Major: 7.01 cm | |RV Minor: 2.99 cm | |LVEF MOD A2C: 66.32 % | |SV MOD A2C: 97.54 ml | |LVEF MOD A4C: 57.03 % | |SV MOD A4C: 59.71 ml | |EF Biplane: 61.53 % | |LVEDV MOD BP: 130.63 ml | |LVESV MOD BP: 50.25 ml | |LVEDV MOD A2C: 147.07 ml | |LVLd A2C: 8.97 cm | |LVEDV MOD A4C: 104.69 ml | |LVLd A4C: 8.06 cm | |LVESV MOD A2C: 49.53 ml | |LVLs A2C: 7.21 cm | |LVESV MOD A4C: 44.98 ml | |LVLs A4C: 6.31 cm | |LAESV(A-L): 59.07 ml | |LAESV Index (A-L): 34.14 ml/m2 | |LAAs A2C: 17.38 cm2 | |LAESV A-L A2C: 48.66 ml | |LALs A2C: 5.26 cm | |LAAs A4C: 18.99 cm2 | |LAESV A-L A4C: 64.56 ml | |LALs A4C: 4.74 cm | |RAAs: 15.65 cm2 | |RAESV A-L: 43.30 ml | |RAESV MOD: 43.04 ml | |RALs: 4.80 cm | |TAPSE: 2.66 cm | |AV maxP.68 mmHg | |AV meanP.35 mmHg | |AV Vmax: 1.55 m/s | |AV Vmean: 1.08 m/s | |AV VTI: 34.08 cm | |VICTORIA Vmax: 2.62 cm2 | |VICTORIA (VTI): 2.50 cm2 | |AVAI (Vmax): 0.00 cm2/m2 | |AVAI (VTI): 0.00 cm2/m2 | |LVOT maxP.88 mmHg | |LVOT meanP.03 mmHg | |LVSI Dopp: 49.25 ml/m2 | |LVSV Dopp: 85.21 ml | |LVOT Vmax: 1.31 m/s | |LVOT Vmean: 0.79 m/s | |LVOT VTI: 27.36 cm | |MV A Nitin: 0.71 m/s | |MV Dec [place]: 5.61 m/s2 | |MV DecT: 213.73 ms | |MV E Nitin: 1.19 m/s | |MV E/A Ratio: 1.67 | |MV PHT: 61.98 ms | |MVA By PHT: 3.54 cm2 | |Septal e': 0.07 m/s | |Septal E/e': 15.70 | |Lateral e': 0.09 m/s | |Lateral E/e': 12.07 | |TR maxP.34 mmHg | |TR Vmax: 2.88 m/s | |RV s': 0.11 m/s | | | |Delivery Crew Member: DBS | |Authenticated by: Heber Simmons MD | |Report Date/Time: -- [id number]:30:38 | | | |IMPRESSION: | |1. Overall left ventricular systolic function is normal with an EF between 60 - 65%. | |2. The right ventricle is normal in size and function. | |3. Moderate tricuspid regurgitation is present. | |4. There is borderline pulmonary hypertension. | + + documented in this encounter Visit Diagnoses Not on filedocumented in this encounter"
--- OUTSIDE RECORDS SUMMARY | ~2019-09-04 | XMS | Clinical Summary ---
Demographics + + + | Address | [address] | | | [place] [address] | + + + | Home Phone | | + + + | Preferred Language | Unknown | + + + | Marital Status | | + + + | Taoist Affiliation | Unknown | + + + | Race | Unknown | + + + | Ethnic Group | Unknown | + + + Author + + + | Author | [employer] (Historical as of | | | 12-23-18) | + + + | Organization | [facility] [employer] (Historical as of | | | 12-23-18) [...] Team Providers + +------+ + | Care Boatswain Mate Name | Role | Phone | + [...] | | | + +--------+ +------+-------+---------+ | [facility] | UNITED | [id number] | | | | | | | | | | | | | HEALTH | | | | | | | CARE - | | | | | | | SLC | | | | | + +--------+ +------+-------+---------+ | [facility] | YELLOW | [id number] | | | | | PLANS | [...] | Self | [birth year] Home: | [address] | | | al/Fam | | 1965 | [phone] [place] | | | mike | | | [phone] | [phone] | + +--------+ +--------+ + +
--- OUTSIDE RECORDS SUMMARY | ~2019-09-04 | XMS | Encounter Summary ---
Demographics + + + | Address | [address] | | | [place] [address] | + + + | Home Phone | | + + + | Preferred Language | Unknown | + + + | Marital Status | | + + + | Tenriism Affiliation | Unknown | + + + | Race | Unknown | + + + | Ethnic Group | Unknown | + + + Author + + + | Author | [facility] | | | and [place] | + + + | Organization | [facility] | | | and [...] Team Providers + +------+ + | Care Extrusion Die Corrector Name | Role | Phone | + +------+ + PCP | Unavailable | + +------+ + Encounter Details +--------+ + + + + | Date | Type | Department | Care Team | Description | +--------+ + + + + | 11/07/ | Hospital | [facility] | Conversion | Diagnosis unknown | | 2017 | Encounter | CONVERSION [address] | Transaction, | | | | | [address] | Provider Unknown | | | | | [place] | [phone] | | | | | [address] | | | | | | [phone] | | | +--------+ + + + [...] + + | [facility] Conversion - 12/21/2018 9:08 AM PDT This is [...]
--- OUTSIDE RECORDS SUMMARY | ~2019-09-04 | XMS | Encounter Summary ---
Demographics + + + | Address | [address] | | | [place] [address] | + + + | Home Phone | | + + + | Preferred Language | Unknown | + + + | Marital Status | | + + + | Roman Catholic Affiliation | Unknown | + + + | Race | Unknown | + + + | Ethnic Group | Unknown | + + + Author + + + | Author | [facility] | | | and [place] | + + + | Organization | [facility] | | [...] Team Providers + +------+ + | Care Sheet Finisher Name | Role | Phone | + +------+ + PCP | Unavailable | + +------+ + Encounter Details +--------+ + + + + | Date | Type | Department | Care Team | Description | +--------+ + + + + | 11/07/ | Hospital | [facility] | Conversion | Diagnosis unknown | | 2017 | Encounter | CONVERSION [address] | Transaction, | | | | | [address] | Provider Unknown | | | | | [place] | [phone] | | | | | [address] | | | | | | [phone] | | | +--------+ + + + [...]
--- OUTSIDE RECORDS SUMMARY | ~2019-09-04 | XMS | Encounter Summary ---
Demographics + + + | Address | [address] | | | [place] [address] | + + + | Home Phone | | + + + | Preferred Language | Unknown | + + + | Marital Status | | + + + | Anabaptism Affiliation | Unknown | + + + | Race | Unknown | + + + | Ethnic Group | Unknown | + + + Author + + + | Author | [facility] | | | and [place] | + + + | Organization | [facility] | | | and [...] Team Providers + +------+ + | Care Knitting Machine Fixer Head Name | Role | Phone | + +------+ + PCP | Unavailable | + +------+ + Encounter Details +--------+ + + + + | Date | Type | Department | Care Team | Description | +--------+ + + + + | 08/15/ | Orders Only | [facility] | As[facility] | | | 2018 | | [address] | [place] [address] | | | | | [address] | [place] [place] | | | | | [address] | [place] [address] | | | | | [address] | [phone] | | | | | [phone] | | | +--------+ + + + [...] Doppler was | | | perfomed at [facility]. Study: This was a technically [...] MV A Nitin: 0.71 m/s MV Dec Sac: 5.61 | | | m/s2 MV DecT: [...] RV s': 0.11 | | | m/s Wastewater Manager: MIHAI Authenticated by: Heber Simmons MD Report | | | Date/Time: -- 58_[id number]:30:38 | | + + + + + [...] flow Doppler was perfomed | | at [facility].Study: This was a technically adequate [...] | | Valve: Normal appearing mitral valve. [id number]-ep-[id number] Valve: ild mitral regurgitation | | is [...] | 4.49 cmLVPWd: 0.75 cmLVOT Area: 3.11 [id number] Diam: 1.99 cm%FS: 37.59 %EF(Teich): | | [...] (A-L): 34.14 ml/m2LAAs A2C: 17.38 | | ol7NHPJD A-L A2C: 48.66 mlLALs A2C: 5.26 cmLAAs A4C: 18.99 el4QGEHS A-L A4C: | | 64.56 mlLALs A4C: 4.74 cmRAAs: 15.65 gg7EFCCN A-L: 43.30 mlRAESV MOD: 43.04 | | mlRALs: 4.80 cmTAPSE: 2.66 cmAV maxP.68 mmHgAV meanP.35 mmHgAV Vmax: | | 1.55 m/Cinda Vmean: 1.08 m/Cinda VTI: 34.08 cmAVA Vmax: 2.62 cm2AVA (VTI): 2.50 | | xe6MFSV (Vmax): 0.00 cm2/m2AVAI (VTI): 0.00 cm2/m2LVOT maxP.88 mmHgLVOT | | meanP.03 mmHgLVSI Dopp: 49.25 ml/m2LVSV Dopp: 85.21 mlLVOT Vmax: 1.31 | | m/sLVOT Vmean: 0.79 m/sLVOT VTI: 27.36 cmMV A Nitin: 0.71 m/sMV Dec Sac: 5.61 | | m/s2MV DecT: 213.73 msMV E Nitin: 1.19 m/sMV E/A Ratio: 1.67MV PHT: 61.98 msMVA By | | PHT: 3.54 xa3Eegozs e': 0.07 m/sSeptal E/e': 15.70Lateral e': 0.09 m/sLateral | | E/e': 12.07TR maxP.34 mmHgTR Vmax: 2.88 m/sRV s': 0.11 m/s Wastewater Manager: | | DBSAuthenticated by: [facility] Date/Time: -- [id number]:30:38 | | IMPRESSION: 1. Overall left ventricular [...] A Nitin: 0.71 m/s | |MV Dec Sac: 5.61 m/s2 | |MV DecT: 213.73 ms [...] |RV s': 0.11 m/s | | | |Wastewater Manager: DBS | |Authenticated by: Heber Simmons MD | |Report Date/Time: -- 59_[id number]:30:38 | | | |IMPRESSION: | |1. Overall [...]
--- OUTSIDE RECORDS SUMMARY | ~2019-09-04 | XMS | Clinical Summary ---
Demographics + + + | Address | [address] | | | [place] [address] | + + + | Home Phone | | + + + | Preferred Language | Unknown | + + + | Marital Status | | + + + | Yazdanism Affiliation | Unknown | + + + | Race | Unknown | + + + | Ethnic Group | Unknown | + + + Author + + + | Author | [facility] | | | and [place] | + + + | Organization | [facility] | | | and [place] | + [...] Team Providers + +------+ + | Care Qa Engineer Name | Role | Phone | + [...] +---------+--------+ | [employer] | UNITED | [id number] | 05/09/19 | [phone] | | PPO | | | | | 19-Pre | 2 | | | | | HEALTH | | sent | | | | | | CARE | | | | | | | | PPO | | | | | | + +--------+ +--------+ +---------+--------+ | [facility] | [facility] | [id number] | 05/09/19 | | | Indemn | [...] Person | Self | [birth year] | | [address] | | | al/Fam | | 1965 | [phone] | [place] | | | mike | | | 3 (Home) | [phone] | + +--------+ +--------+ + + Advance Directives + + + + + | Type | Date Recorded | Patient | Explanation | | | | Mailroom Courier | | + + + + + | Power of | | | | | Student Affairs Vice President | | | | + + + + + | Advance | | | | | Directive | | | | + + + + +
--- OUTSIDE RECORDS SUMMARY | ~2019-09-04 | XMS | Encounter Summary ---
Demographics + + + | Address | [address] | | | [place] [address] | + + + | Home Phone | | + + + | Preferred Language | Unknown | + + + | Marital Status | | + + + | Catholic Affiliation | Unknown | + + + | Race | Unknown | + + + | Ethnic Group | Unknown | + + + Author + + + | Author | [facility] | | | and [place] | + + + | Organization | [facility] | | | [...] Team Providers + +------+ + | Care Apprenticeship Representative Name | Role | Phone | + [...] Unknown | electrocardiogram; | | | | [place], [place] | [phone] | Abnormal | | | | [phone] | (Fax) | electrocardiogram | | | | [phone] | | | +--------+ + + + [...] 08/23/2019 | + +------+--------+ + + | [id number]-[id number], | Lab | Routin | Cirrhosis of [...]
--- OUTSIDE RECORDS SUMMARY | ~2019-09-04 | XMS | Encounter Summary ---
Demographics + + + | Address | [address] | | | [place] [address] | + + + | Home Phone [...] + + + | Author | [facility] | | | and [place] | + + + | Organization | [facility] | | | [...] Team Providers + +------+ + | Care Metal Flooring Installer Name | Role | Phone | + +------+ + | No, Unknownpcp | PCP | | + +------+ + Encounter Details +--------+ + + + + | Date | Type | Department | Care Team | Description | +--------+ + + + + | 03/12/ | Orders Only | [facility] | Heather Sargent DO | Long QT interval | | 2019 | | [facility] [place] | [address] | (Primary Dx) | | | | [address] | [address] [place], [place] | | | | | [place], [place] | [address] | | | | | [address] | | | | | | [phone] | | | +--------+ + + + [...] INTERPRETAT | Please refer to | | [facility] | | | ION TEXT | Providers office visit | | | | | | note for Providers | | | | | | Interpretation.Confirmed | | | | | | by [facility] Read Only, | | | | | | [facility] ([id number]), | | | | | | editor managing newspaper Benitez Arredondo | | | | | | ([id number]) on 03/12/2019 | | | | | [...]
--- OUTSIDE RECORDS SUMMARY | ~2019-09-04 | XMS | Encounter Summary ---
Demographics + + + | Address | [address] | | | [place] [address] | + + + | Home Phone | | + + + | Preferred Language | Unknown | + + + | Marital Status | | + + + | Lutheran Affiliation | Unknown | + + + | Race | Unknown | + + + | Ethnic Group | Unknown | + + + Author + + + | Author | [facility] | | | and [place] | + + + | Organization | [facility] | | | [...] Team Providers + +------+ + | Care Timing Machine Operator Name | Role | Phone | [...] + + | 05/23/ | Telephone | [facility] | Sonia Melo, | Appointment (called | | 2019 | | GASTROENTEROLOGY | [address] | pt back) | | | | [address] | [place] [address] | | | | | [place], [place] | [phone] | | | | | [address] | | | | | | [phone] | | | +--------+ + + + [...]
--- OUTSIDE RECORDS SUMMARY | ~2019-09-04 | XMS | Encounter Summary ---
Demographics + + + | Address | [address] | | | [place] [address] | + + + | Home Phone | | + + + | Preferred Language | Unknown | + + + | Marital Status | | + + + | Sabianism Affiliation | Unknown | + + + | Race | Unknown | + + + | Ethnic Group | Unknown | + + + Author + + + | Author | [facility] | | | and [place] | + + + | Organization | [facility] | | | [...] Team Providers + +------+ + | Care Table Hand Name | Role | Phone | + +------+ + PCP | Unavailable | + +------+ + Encounter Details +--------+ + + + + | Date | Type | Department | Care Team | Description | +--------+ + + + + | 11/10/ | Hospital | [facility] | Conversion | Hepatic cirrhosis, | | 2019 | Encounter | [facility] | Transaction, | unspecified hepatic | | | | [address] | Provider Unknown | cirrhosis type, | | | | [address]LEN BAKER | [phone] | unspecified whether | | | | [address] | (Fax) | ascites present | | | | [phone] | Charles Montenegro MD | ([facility]) | | | | | [address] | | | | | | [place], [place] | | | | | | [address] | | | | | | | [...] Note by August Rodríguez RN at 11/10/18 3921 Author: August Rodríguez RN Service: General Surgery Author Type: Registered Nu rse Filed: 11/10/18 8494 Date of Service: 11/10/18 1903 Status: Signed Science Manager: August Rodríguez, RN (Registered Nurse) 1300> Spouse [...] Author Type: Registered Nu rse Filed: 11/10/18 1227 Date of Service: 11/10/181219 Status: Signed Science Manager: August Rodríguez RN (Registered Nurse) 1100> Patient [...] dilated to allow placement for a 9 Divehi | | | sheath. An MPA catheter [...] locally | | anesthetized with 1% lidocaine. Kxtx-uyfkvfilgudeuf-fupwzd micropuncture access was | | obtained and the tract wasdilated to allow placement for a 9 Divehi sheath. An MPA | | catheter wasused to select the middle hepatic vein and middle hepatic venogram | | wasobtained. Next, hemodynamic pressure measurements were obtained in theright atrium, | | free hepatic and wedge hepatic using an occlusion ballooncatheter. A Fortuna Vini 18 | | gauge core biopsy needle [...] component was performed by | | | [facility], [address] [place] [id number] (Medical | | | Director: Anita Mcneal MD; CLIA# [id number]). Professional | | | interpretation was performed by [facility] | | | [address] [address] (Medical | | | Director: Cesar Bhagat M.D.; CLIA#: [id number]). Diagnostician: | | | Anita Mcneal MD [...] | | | | | performed at [facility] | | | | | | [facility];[place], [place] | | | | | | [address] | | | | + + + [...] | | | Basophils | performed at [facility];[address] | K/uL | LAB | | | | [address];[place] | | | | | | [address] | | | | + + + [...]
--- OUTSIDE RECORDS SUMMARY | ~2019-09-04 | XMS | Encounter Summary ---
Demographics + + + | Address | [address] | | | [place] [address] | + + + | Home Phone | | + + + | Preferred Language | Unknown | + + + | Marital Status | | + + + | Buddhist Affiliation | Unknown | + + + [...] Team Providers + +------+ + | Care Monkey Trainer Name | Role | Phone | + +------+ + PCP | Unavailable | + +------+ + Encounter Details +--------+ + + + + | Date | Type | Department | Care Team | Description | +--------+ + + + + | 11/07/ | Hospital | [facility] | Conversion | Diagnosis unknown | | 2017 | Encounter | CONVERSION DEP [address] | Transaction, | | | | | [address] | Provider Unknown | | | | | [place] | [phone] | | | | | [address] | | | | | | [phone] | | | +--------+ + + + [...]
--- OUTSIDE RECORDS SUMMARY | ~2019-09-04 | XMS | Encounter Summary ---
Demographics + + + | Address | [address] | | | [place] [address] | + + + | Home Phone | | + + + | Preferred Language | Unknown | + + + | Marital Status | | + + + | Denominational Affiliation | Unknown | + + + | Race | Unknown | + + + | Ethnic Group | Unknown | + + + Author + + + | Author | [facility] | | | and [place] | + + + | Organization | [facility] | | [...] Team Providers + +------+ + | Care Chuck Wagon Cook Name | Role | Phone | + [...] | | | | electrocardi | [place] [address] | [address] | | | | | ogram (ECG) | | DR MARTINEZ | | | | | (EKG) | [facility] | [place], [place] | | | | | Procedures | WAY | [address] Phone: | | | | | FOLLOW UP | [place], | [phone] | | | | | | [place] [address] | Fax: | | | | | | Phone: | [phone] | | | | | | [phone] | | | | | | | Fax: | | | | | | | [phone] | | +--------+--------+ + + + + Encounter Details +--------+---------+ + + + | Date | Type | Department | Care Team | Description | +--------+---------+ + + + | 06/07/ | Office | [facility] | Heather Sargent DO | Premature | | 2020 | Visit | CARDIOLOGY [place] | [address] | ventricular | | | | [address] | [place], [place] | contractions | | | | [address] | [address] | (Primary Dx); | | | | [place] | | Prolonged Q-T | | | | [address] | | interval on ECG; | | | | [phone] | | Long QT interval; | | [...] Sargent DO - 06/07/2019 9:40 AM PST [facility] Cardiology Cardiology Consult Note Reason for Consultation: [...] cirrhosis of uncertain etiology. EKGs from the [facility] on demonstrates QTc of 552 [...] 20 MEQ tablet Take 1 tablet by [facility] daily. 30 tablet 5 propranolol (INDERAL LA) [...] care of this patient. Primary Care Physician: [facility] Heather Sargent DO documented in [...]
--- OUTSIDE RECORDS SUMMARY | ~2019-09-04 | XMS | Encounter Summary ---
Demographics + + + | Address | [address] | | | [place] [address] | + + + | Home Phone | | + + + | Preferred Language | Unknown | + + + | Marital Status | | + + + | Yarsani Affiliation | Unknown | + + + [...] Team Providers + +------+ + | Care Clinical Research Associate Name | Role | Phone | + +------+ + PCP | Unavailable | + +------+ + Encounter Details +--------+ + + + + | Date | Type | Department | Care Team | Description | +--------+ + + + + | 11/07/ | Hospital | [facility] | Conversion | Diagnosis unknown | | 2017 | Encounter | CONVERSION DEP [address] | Transaction, | | | | | [address] | Provider Unknown | | | | | [place] | [phone] | | | | | [address] | | | | | | [phone] | | | +--------+ + + + [...]
--- OUTSIDE RECORDS SUMMARY | ~2019-09-04 | XMS | Encounter Summary ---
Demographics + + + | Address | [address] | | | [place] [address] | + + + | Home Phone | | + + + | Preferred Language | Unknown | + + + | Marital Status | | + + + | Yarsanism Affiliation | Unknown | + + + | Race | Unknown | + + + | Ethnic Group | Unknown | + + + Author + + + | Author | [facility] | | | and [place] | + + + | Organization | [facility] | | | and [...] Team Providers + +------+ + | Care Bung Sewer Name | Role | Phone | + +------+ + | No, Unknownpcp | PCP | | + +------+ + Encounter Details +--------+ + + + + | Date | Type | Department | Care Team | Description | +--------+ + + + + | 03/12/ | Orders Only | [facility] | Heather Sargent DO | Long QT interval | | 2019 | | CARDIOLOGY [place] | [address] | (Primary Dx) | | | | [address] | [place], [place] | | | | | [place], [place] | [address] | | | | | [address] | | | | | | [phone] | | | +--------+ + + + [...] | | | | | by [employer] [place] Read Only, | | | | | | [employer] [address] ([id number]), | | | | | | editor greeting card Benitez Arredondo | | | | | | ([phone]) on 03/12/2019 | | | | | [...]
[~2019-09-04 10:23] MED LIST changes: +POTASSIUM CHLO10 MEQ PO; +ZOFRAN4 MG PO
[2019-09-04] MEDS ORDERED: ONDANSETRON ODT8 MG PO (14:00)
== END 2019-09-04 14:13 | disposition home or self-care (01) ==
LOC: ED 10:23
DX: K52.9 Noninfective gastroenteritis and colitis, unspecified (principal); K76.9 Liver disease, unspecified; F17.200 Nicotine dependence, unspecified, uncomplicated; Z88.0 Allergy status to penicillin; Z79.899 Other long term (current) drug therapy
CPT/HCPCS: 80053; 81001; 83690; 83735; 85025; 96361; 96374; 96375; 99284-25; J2405; J2550; J7030

== ENCOUNTER 2021-07-30 14:41 | Inpatient (IN) | payer OTHER ==
[~2021-07-30] VITALS: Ht 167.6 cm; Wt 84.0 kg
[~2021-07-30 14:41] MED LIST changes: +ONDANSETRON ODT8 MG PO
[2021-07-30] MEDS ORDERED: MILK THISTLE150 MG PO (15:02)
[2021-07-30] MEDS ORDERED: MULTI VITAMIN1 EACH PO (15:02)
[2021-07-30] MEDS ORDERED: BLACK ELDERBER1 EACH PO (15:03)
--- NOTE | 2021-07-30 20:07 | NUR ---
Asked patient to call if IV burning, leaking, or swelling observed.
--- NOTE | 2021-07-30 20:45 | NUR ---
Dr. Ruiz called to hold additional potassium riders after current, give 2200 PO potassium. Notifed him regarding baseline low Systolic BP with MAP of 75. Will call if MAP below 65.
--- NOTE | 2021-07-30 21:29 | NUR ---
Patient concerned PO potassium will make her nauseous. Gave PRN Zofran before admin. Reminded patient to call if she needs to get up, she is a high fall risk. at bedside. Will continue to monitor.
--- NOTE | 2021-07-31 00:12 | NUR ---
Patient's left for the evening. Using call light appropriately. Will continue to monitor.
--- NOTE | 2021-07-31 01:10 | NUR ---
Called Dr. Ruiz regarding MAP of 62. States we will monitor at this time as patient is asymptomatic.
--- NOTE | 2021-07-31 01:57 | NUR ---
IV KCL COMPLETED, PT SALINE LOCKED. PT LAYING IN BED AWAKE AND ALERT AT THIS TIME. PT SAT UP AND PO MIDODRINE ADMINISTERED. PT REPORTS NO FURTHER NEEDS WHEN ASKED AND IS RESTING IN BED. WILL CONTINUE PLAN OF CARE. CALL LIGHT IN REACH.
--- NOTE | 2021-07-31 08:00 | NUR ---
PT AWAKEN WITH VERBAL STIMULI, REPOSITIONED IN BED FOR BREAKFAST, HEAD TO TOE ASSESSMENT COMPLETE WITH NO NEW PERTINENT FINDINGS. PT REPORTS MILD RELIEF IN DISTENSION OF ABD. PT HAS SOME MILD NAUSEA, ZOFRAN GIVEN. BP AND POTASSIUM REMAIN LOW, MD CALLED AND VERBAL ORDERS PLACED. PT EATING SMALL AMOUNT OF BREAKFAST, K RIDER INFUSING, ORAL MEDS GIVEN WITHOUT ISSUE. PT HAS NO OTHER REQUESTS AT THIS TIME. CALL LIGHT WITHIN REACH.
--- NOTE | 2021-07-31 08:38 | NUR ---
MD CALLED AND NOTIFIED OF HYPOTENSION, AND LOW POTASSIUM. VERBAL ORDERS GIVEN AND VERIFIED WITH PHARMACY.
--- NOTE | 2021-07-31 10:20 | NUR ---
CALLED MD VARGAS TO UPDATE ON VITALS. PATIENTS BP 88/55 MAP 67, 50MLS URINE OUTPUT IN 4 HR. VERIFIED MD WANTS LASIX AND SPIROLACTONE WITH CURRENT VITALS. PER MD GO AHEAD AND GIVE MEDS AND SEE NEW ORDERS FOR ADDITIONAL MIDODRINE 5MG AND ALBUMIN TO BE GIVEN NOW. LESLEY NELSON UPDATED ON PLAN OF CARE. WILL CONTINUE TO CLOSELY MONITOR.
--- NOTE | 2021-07-31 10:30 | NUR ---
NEW ORDERS FOR LASIX/SPIRONOLACTONE GIVEN. PT REMAINS HYPOTENSIVE. CALLED TO VERIFY ORDERS, WHO ALSO ADDED AN ADDITIONAL DOSE OF MIDIDRINE AND ALBUMIN. 2ND IV INSERTED TO RFA. PT TEARFUL, REPORTS SHE IS MISSING HER DOG. PT'S WILL POSSIBLY BRING THE DOG LATER TODAY FOR COMFORT. PT DENIES NEED TO TOILET AT THIS TIME. HAS NO OTHER REQUESTS, CALL LIGHT WITHIN REACH. WILL CONTINUE TO MONITOR BLOOD PRESSURE, NEED TO TOILET.
--- NOTE | 2021-07-31 12:26 | NUR ---
ALBUMIN INFUSION COMPLETE, MAG/POTASSIUM CONTINUE TO INFUSE, PT TOLERATING WELL. REQUESTING BROTH FOR LUNCH, REPORTS SHE IS NOT WANTING TO TRY ANYTHING ELSE AT THIS TIME. PT UP TO BSC WITH STANDBY ASSIST. ATTEMPTED, BUT UNSUCCESSFUL BM, AND APPROX 100ML DARK YELLOW URINE VOIDED. PT BACK IN BED, WITH WARM BLANKETS GIVEN. PT REMAINS HYPOTENSIVE, WITH MAP ABOVE 65, MD AWARE. PT SITTING UP IN BED, TALKING WITH HER , HAS NO OTHER REQUESTS AT THIS TIME. CALL LIGHT WITHIN REACH.
--- NOTE | 2021-07-31 14:02 | NUR ---
PT UP TO BSC, VOIDED 400ML, ALSO HAD SMALL, LOOSE, BM WITH SOME BRIGHT RED BLOOD STREAKING. PT REPORTS THE BLOOD IS COMMON WITH BOWEL MOVEMENTS. PT IN AND OUT OF BED WITHOUT ASSISTANCE. WILL NOTIFY MD OF FINDINGS.
--- NOTE | 2021-07-31 14:54 | EKG ---
[facility] [address] [place] [address] \T\ T wave abnormality, consider lateral ischemia Abnormal ECG When compared with ECG of 14-MAY-2019 22:06, Nonspecific T wave abnormality now evident in Inferior leads Confirmed by LINDSEY VARGAS MD ([id number]) on 07/31/2021 2:54:37 PM Electronically Signed By: LINDSEY VARGAS MD 07/31/21 1454 PATIENT NAME: SUSY DUFF Electrocardiogram DATE OF : 65 PHYSICIAN: LINDSEY VARGAS MD REPORT #: [id number] REPORT IS CONFIDENTIAL AND NOT TO BE RELEASED WITHOUT AUTHORIZATION
--- NOTE | 2021-07-31 15:43 | NUR ---
CHAPERONED PT TO US FOR ABD PARACENTESIS PERFORMED BY DR KIDD, ASSISTED BY ABDIFATAH US TECH. PT TOLERATED WELL AND WAS ABLE TO MAINTAIN SYSTOLIC BP ABOVE 90, AND MAP ABOVE 65. PY HAD APPROX 2000ML OUTPUT WITH PROCEDURE. SITE CLEANED AND COVERED WITH BACITRACIN AND BANDAID BY DR KIDD.
--- NOTE | 2021-07-31 17:07 | NUR ---
PT ALERT, ORIENTED, AND STABLE. BOOSTED IN BED, AND IS SITTING UP, PICKING AT HER DINNER. PT REPORTS SHE CAN BREATHE MUCH BETTER SINCE THE PARACENTESIS, AND WAS ALSO ABLE TO VOID EASIER. PT REMAINS HYPOTENSIVE, MIDIDRINE ORDERED AND GIVEN.
[2021-07-31] MEDS ORDERED: MIDODRINE HCL10 MG PO (17:38)
[2021-07-31] MEDS ORDERED: SPIRONOLACTONE50 MG PO (17:38)
--- NOTE | 2021-07-31 18:15 | NUR ---
PT DID NOT WANT QUIT LINE INFORMATION BRIEF INTERVENTION PROVIDED .
--- NOTE | 2021-07-31 18:49 | NUR ---
THIS RN TOOK PATIENT OUT VIA WHEELCHAIR. PATIENTS WITH PATIENT TO DISCHARGE. NO FURTHER QUESTIONS. ALL BELONGINGS SENT WITH FAMILY.
== END 2021-07-31 18:44 | disposition home or self-care (01) | DRG 641 ==
LOC: ED 14:41 → CCU 18:08
PROVIDERS: ADMIT Internal Medicine; ATTEND Internal Medicine
PROC: 0W9G30Z Drainage of Peritoneal Cavity with Drainage Device, Percutaneous Approach (ICD-10-PCS; principal; 2021-07-31)
DX: E87.6 Hypokalemia (principal); K70.31 Alcoholic cirrhosis of liver with ascites; I95.9 Hypotension, unspecified; D64.9 Anemia, unspecified; F17.210 Nicotine dependence, cigarettes, uncomplicated; Z20.822 Contact with and (suspected) exposure to COVID-19; Z88.8 Allergy status to other drugs, medicaments and biological substances; Z79.899 Other long term (current) drug therapy
CPT/HCPCS: 36415; 49083; 71045; 74177; 80048; 80053; 80503; 81001; 82140; 83735; 84132; 85007; 85025; 85610; 93005; 93010; 99406; C9803; J2405; J3475; J3480; J7060; P9047; Q9967; U0003

== ENCOUNTER 2021-09-15 08:52 | Emergency (ER) | payer OTHER ==
[~2021-09-15] VITALS: Ht 167.6 cm; Wt 83.9 kg
[~2021-09-15 08:52] MED LIST changes: +BLACK ELDERBER1 EACH PO; +MIDODRINE HCL10 MG PO; +MILK THISTLE150 MG PO; +MULTI VITAMIN1 EACH PO; +SPIRONOLACTONE50 MG PO
[2021-09-15] MEDS ORDERED: K-TAB ER20 MEQ PO (16:11)
== END 2021-09-15 16:54 | disposition home or self-care (01) ==
LOC: ED 08:52
DX: E87.6 Hypokalemia (principal); R18.8 Other ascites; K76.9 Liver disease, unspecified; M54.9 Dorsalgia, unspecified; F17.200 Nicotine dependence, unspecified, uncomplicated; Z88.8 Allergy status to other drugs, medicaments and biological substances; Z79.899 Other long term (current) drug therapy; Z20.822 Contact with and (suspected) exposure to COVID-19
CPT/HCPCS: 36415; 49083; 71045; 74177; 76705; 80053; 81001; 82945; 83605; 84157; 85025; 85610; 85730; 87502; 89051; 99284-25; A9270; C9803; J0692; J1170; J7121; Q9967; U0003

== ENCOUNTER 2021-10-13 11:16 | Observation (INO) | payer OTHER ==
[~2021-10-13] VITALS: Ht 167.6 cm; Wt 87.7 kg
[~2021-10-13 11:16] MED LIST changes: +K-TAB ER20 MEQ PO
--- OUTSIDE RECORDS SUMMARY | 2021-10-13 11:24 | XMS ---
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 Siobhan has no Care Guidelines for this patient. Sergey VISIT COUNT (12 MO.) 4 [facility] [place] [place] TOTAL 4 NOTE: Visits indicate total known visits. ED/C VISIT TRACKING (12 MO.) 10/13/2021 11:17 [facility] [place] TYPE: Emergency COMPLAINT: - ABD PAIN, SOB, LEGS SWELLING 09/21/2021 10:51 [facility] [place] TYPE: Emergency COMPLAINT: - ABD PRESSURE DIAGNOSES: - Nicotine dependence, unspecified, uncomplicated - Unspecified abdominal pain - Other long term care phlebotomist (current) drug therapy - Unspecified cirrhosis of liver 09/15/2021 08:53 [facility] [place] TYPE: Emergency COMPLAINT: - LOWER BACK PAIN DIAGNOSES: - Allergy status to other drugs, medicaments and biological substances - Other long term care phlebotomist (current) drug therapy - Unspecified abdominal pain - Dorsalgia, unspecified - Liver disease, unspecified - Contact with and (suspected) exposure to COVID-19 - Nicotine dependence, unspecified, uncomplicated - Hypokalemia - Other ascites 07/30/2021 14:42 [facility] [place] TYPE: Emergency COMPLAINT: - SHORTNESS OF BREATH, BLOATED INPATIENT VISIT TRACKING (12 MO.) 07/30/2021 18:08 [facility] [place] TYPE: Critical Care COMPLAINT: - SEVERE HYPOKALEMIA, MASSIVE ASCITIS DIAGNOSES: - Allergy status to other drugs, medicaments and biological substances - Alcoholic cirrhosis of liver with ascites - Contact with and (suspected) exposure to COVID-19 - Hypotension, unspecified - Alcoholic cirrhosis of liver with ascites - Anemia, unspecified - Hypotension, unspecified - Nicotine dependence, cigarettes, uncomplicated - Allergy status to other drugs, medicaments and biological substances - Alcoholic cirrhosis of liver with ascites - Hypokalemia - Nicotine dependence, cigarettes, uncomplicated - Hypokalemia - Anemia, unspecified - Other care home (current) drug therapy - Other care home (current) drug therapy [email or web address]
--- NOTE | 2021-10-13 13:54 | NUR ---
REPORT FROM CARLOS ALBERTO NG RN.
--- NOTE | 2021-10-13 16:33 | NUR ---
Nan is admitted to the hospital today. She is awake and alert to person, place and time. She answers questions appropriately and is able to state her care provider. She states that she lives at home with her . There is a nephew and his daughter that live in a travel trailor on her property. Nan states that she also has two friends that come over to the home to help her when needed for meal prep, cooking, cleaning, etc. Nan feels comfortable with discharging to home with her current support system. She denies questions or patient care needs at this time.
--- NOTE | 2021-10-13 17:45 | NUR ---
Pt is lying in bed on R side. Pain subsided significantly. Pt did say she felt lightheaded. Dr Ruiz discontinued Morphine. Pt received IV Lasix and PO Aldactone.
--- NOTE | 2021-10-13 18:43 | NUR ---
PATIENT UP TO BATHROOM AND BACK TO BED, 1PA. VITALS AND I&O'S CHARTED. CALL LIGHT IN REACH. NO FURTHER NEEDS AT THIS TIME.
--- NOTE | 2021-10-13 19:23 | NUR ---
REPORT RECEIVED FROM DAY SHIFT RN. PT LYING IN BED ALERT AND ORIENTED. DENIES NEEDS. WHITE BOARD UPDATED. CALL LIGHT IN REACH.
--- NOTE | 2021-10-13 21:24 | NUR ---
DR. WOLF CONSULTED. PT DOES NOT NEED TO BE NPO FOR MORNING PROCEDURE. DR. VARGAS CALLED. DIET ORDER UPDATED. VERIFIED WITH READ BACK METHOD.
--- NOTE | 2021-10-13 22:20 | NUR ---
EVENING ASSESSMENT COMPLETE. ABDOMINAL DISTENTION NOTED. PT ALSO WITH GENERALIZED EDEMA. DENIES SOB. VS AND I&O COMPLETE. HR NOTED 130 APICAL. REGULAR RATE AND RHYTHM. PT REPORTS ABD AND BACK PAIN. NO PRN ORDERS FOR PAIN. DR. VARGAS NOTIFIED. NEW TELEPHONE ORDERS RECEIVED VERIFIED WITH READ BACK METHOD. SURGICAL CONSENT SIGNED AND PLACED ON CHART.
--- NOTE | 2021-10-14 00:01 | NUR ---
PT RESTING IN BED WITH EYES CLOSED. RESPIRATIONS EVEN. CALL LIGHT IN REACH. BED ALARM FOR SAFETY.
--- NOTE | 2021-10-14 02:12 | NUR ---
VS AND I&O COMPLETE. PT REPORTS PAIN IMPROVED AFTER PRN ADMIN AND WAS ABLE TO REST. SBA TO BR TO VOID 250 ML CONCENTRATED URINE. GAIT WEAK. BACK TO BED, GABY WELL. ASSESSMENT COMPLETE. PERSONAL CARE SUPPLIES PROVIDED. PT DENIES FURTHER NEEDS. CALL LIGHT IN REACH.
--- NOTE | 2021-10-14 05:48 | NUR ---
VS AND I&O COMPLETE. PT UP TO BR WITH SBA TO VOID 150 ML CONCENTRATED URINE. BACK TO BED. DENIES SOB. DENIES PAIN. LAB IN ROOM FOR MORNING DRAW. BED ALARM FOR SAFETY.
--- NOTE | 2021-10-14 07:41 | NUR ---
PATIENT IS UP IN BED. IS IN ROOM VISITING. PATIENT RECIEVED ICE WATER. SHE DOES NOT NEED ANYTHING ELSE AT THIS TIME. CALL LIGHT IN REACH.
--- NOTE | 2021-10-14 08:05 | NUR ---
REPORT RECIEVED. PT AAO IN BED. DENIES NEEDS. CALL LIGHT IN REACH.
--- NOTE | 2021-10-14 09:52 | NUR ---
ASSESSMENT COMPLETED. PT WITH ABDOMINAL SWELLING WITH SOB RELATED. LUNGS WITH CRACKLES IN BASES. BOWEL TONES ACTIVE. HEART TACHY. MEDICAITON GIVEN/ PT DENIES FURTHER NEEDS. CALL LIGHT IN REACH.
--- NOTE | 2021-10-14 11:06 | NUR ---
RECEIVED REPORT FROM OMAR GOMEZ. DR WOLF CALLED AND REQUESTED ROOM BE SET UP FOR PARACENTESIS. PT CONSENT COMPLETED.
--- NOTE | 2021-10-14 12:17 | NUR ---
ASSISTED DR WOLF WITH PARACENTESISOF ABD CAVITY. REMOVED 5L OF PERITINEAL FLUID, CLEAR YELLOW IN COLOR. PT TOLERATED WELL. VITAL SIGNS REMAINED STABLE. PT NOW SITTING UP IN BED, EATING LUNCH. AT BEDSIDE. PT REPORTS SHE CAN BREATHE MUCH EASIER.
[2021-10-14] MEDS ORDERED: K-TAB ER20 MEQ PO (12:38)
[2021-10-14] MEDS ORDERED: SPIRONOLACTONE50 MG PO (12:40)
--- NOTE | 2021-10-14 13:12 | OR ---
[facility] [address] [place], [place] [address] Signed DATE OF OPERATION: 10/14/2021 SURGEON: Steve Wolf MD PREOPERATIVE DIAGNOSIS: Symptomatic abdominal ascites related to cirrhotic liver (alcohol-related). POSTOPERATIVE DIAGNOSIS: Symptomatic abdominal ascites related to cirrhotic liver (alcohol-related). PROCEDURE: Ultrasound assisted left abdominal paracentesis (5 L). ANESTHESIA: 1% lidocaine. INDICATION: A 56-year-old woman with recurrent ascites related to alcoholic cirrhosis. She is no longer drinking alcohol. She is on a regimen of primarily spironolactone as an outpatient as well as potassium supplementation. She is not on Lasix. She was admitted by Dr. Sterling and care assumed by Dr. Vargas. A diuretic regimen is being outlined. She has symptoms related to her ascites including shortness of breath, abdominal distention, bloating and decreased appetite. She has previously presented for paracentesis but has been denied on the basis of coagulopathy. Her current INR is 1.92, which in my opinion is reasonable to proceed with paracentesis. She understands the risk of bleeding, infection, failure to provide adequate relief, and so forth and wished to proceed. FINDINGS: Ultrasonographic evaluation showed the right abdomen to be somewhat crowded with enteric loops and so forth. She does have a right subcostal scar from prior cholecystectomy. The left side was a more free area which allow for paracentesis of 5 L of straw-colored reasonably clear fluid. Dr. Vargas, the managing physician, did not require a sample for assessment. DESCRIPTION OF PROCEDURE: The abdomen was interrogated with a SonGetGluete ultrasound device on both right and left sides. There appeared to be a fair amount of bowel loops and so forth on the right side providing less of an adequate window. On the left side, a more free area was noted. Notably, she does have a rather thick abdominal wall pannus. Electronically Signed By: STEVE WOLF MD 10/14/21 1312 PATIENT NAME: SUSY DUFF OPERATIVE REPORT DATE OF : 65 REPORT #: [id number] PHYSICIAN: STEVE WOLF MD PCP: [facility] REPORT IS CONFIDENTIAL AND NOT TO BE RELEASED WITHOUT AUTHORIZATION [facility] [address] [place], [place] [address] Signed On that basis, the left side was chosen for paracentesis today. With ultrasound guidance, the skin site was marked and the area prepared with a chlorhexidine solution and draped sterilely. Using sterile technique including sterile gown, gloves, and so forth, 1% lidocaine was injected over the area of optimal window. Using a paracentesis catheter, the abdomen was entered allowing for aspiration of clear ascites fluid. A three way stopcock and tubing and so forth was set up to the vacutainer bottles. Five bottles were obtained. Towards the end of the paracentesis, episodic and intermittent flow was noted. On that basis, the needle was adjusted in the usual way. Abdominal wall stabilization and manipulation undertaken and so forth. By conclusion, 5 full L of fluid had been obtained without obvious complication. The needle was removed and a Band-Aid was applied. She tolerated the procedure well. Blood pressure was monitored throughout. Her systolic blood pressure is 110 and unchanged. She has much symptomatic relief. Steve Wolf MD JM/MODL /[id number] cc: [facility] Lindsey Vargas MD Copies: LINDSEY VARGAS MD ~ Electronically Signed By: STEVE WOLF MD 10/14/21 1312 PATIENT NAME: SUSY DUFF PHIL OPERATIVE REPORT DATE OF : 65 REPORT #: [id number] PHYSICIAN: STEVE WOLF MD PCP: [facility] REPORT IS CONFIDENTIAL AND NOT TO BE RELEASED WITHOUT AUTHORIZATION
--- NOTE | 2021-10-14 13:12 | CONS ---
[facility] [address], [place] [address] Signed DATE OF CONSULTATION: 10/13/2021 REQUESTING PHYSICIAN: Dr. Johnson and Dr. Ruiz. PROBLEM: Ascites (progressive related to advanced cirrhosis). HISTORY: This 56-year-old woman is accompanied by her . She presented to the emergency room today, was evaluated by Dr. Bermudez at about 12:30 p.m. She is known to have a history of cirrhosis considered alcohol-related and ascites. She presented to the emergency room on several occasions, but paracentesis was not performed and she had an elevated INR that was unacceptable to the consulting physician apparently. She has had increased diffuse abdominal pain and some swelling of her abdomen. She has not had severe dyspnea. The patient was distressed that of paracentesis could not be undertaken. The patient has poor appetite related to her underlying ascites type problem. She denies ongoing alcohol use actually. She does smoke on a daily basis. PAST MEDICAL HISTORY: Includes open cholecystectomy, tubal ligation and ear operation in the past. MEDICATIONS: Currently include potassium chloride, midodrine, and spironolactone daily. She is not on Lasix. She does take a multivitamin, milk thistle daily. LABORATORY STUDIES: On presentation lab studies showed a hematocrit 26.5 with platelets a 199,000, albumin of 1.9, glucose of 98 and an INR of 1.89 with a ProTime of 21. COVID serology is negative. Her creatinine is 0.92. SOCIAL HISTORY: She is . She is accompanied by her . She no longer drinks alcohol, she says. It is presumed that her cirrhosis was related to alcohol. [place] PHYSICAL EXAMINATION: GENERAL: A pleasant woman, who does not look toxic or delirious in any way. Her is in the room as well. Trachea is midline. She has no jugular venous distention. No overt dyspnea at this time. CHEST: Reasonably clear. Electronically Signed By: STEVE WOLF MD 10/14/21 1312 PATIENT NAME: SUSY DUFF CONSULTATION DATE OF : 65 REPORT #: [id number] PHYSICIAN: STEVE WOLF MD PCP: [facility] REPORT IS CONFIDENTIAL AND NOT TO BE RELEASED WITHOUT AUTHORIZATION [facility] [address], [place] [address] Signed HEART: Regular. ABDOMEN: Shows significant ascites. She has a right subcostal incision related to cholecystectomy, which is well healed. There is no sign of an umbilical hernia at this time. EXTREMITIES: Show some wasting and no edema. ASSESSMENT: The patient has symptomatic ascites, for which other providers have been unwilling to provide paracentesis due to an elevated ProTime. I believe her ProTime is of reasonable level at this time that despite some increased risk of bleeding, it would rather be unlikely. Particularly this is to consider and she has a normal platelet count. A large volume paracentesis may be beneficial to her, but only if an aggressive diuresis program can be initiated concurrently, specifically Lasix and spironolactone. I will review this with Dr. Ruiz more fully. late in the evening at 09:00 p.m. We will plan to do this tomorrow morning. We will check a ProTime in the morning to see if she has had progressive improvement (or worsening) of the ProTime. Remedy to her ProTime would not be via a vitamin K administration and her underlying problem is hepatic insufficiency. If a normalization ProTime required fresh frozen plasma would be approach. Steve Wolf MD /MODL /[id number] cc: MD Ridge Richard MD Lohith Veerappa Reddy, MD Copies: RIDGE JOHNSON MD, LOHITH VEERAPPA MD ~ Electronically Signed By: STEVE WOLF MD 10/14/21 1312 PATIENT NAME: SUSY DUFF CONSULTATION DATE OF : 65 REPORT #: [id number] PHYSICIAN: STEVE WOLF MD PCP: [facility] REPORT IS CONFIDENTIAL AND NOT TO BE RELEASED WITHOUT AUTHORIZATION
[2021-10-14] MEDS ORDERED: SPIRONOLACTONE100 MG PO (13:31)
[2021-10-14] MEDS ORDERED: FUROSEMIDE40 MG PO (13:32)
== END 2021-10-14 15:20 | disposition home or self-care (01) ==
LOC: ED 11:16 → MS 11:18
PROVIDERS: ADMIT Hospitalist; ATTEND Hospitalist
PROC: 0W9G3ZX Drainage of Peritoneal Cavity, Percutaneous Approach, Diagnostic (ICD-10-PCS; principal; 2021-10-14)
PROC: BW40ZZZ Ultrasonography of Abdomen (ICD-10-PCS; 2021-10-14)
DX: K70.31 Alcoholic cirrhosis of liver with ascites (principal); Z90.49 Acquired absence of other specified parts of digestive tract; Z98.51 Tubal ligation status; Z20.822 Contact with and (suspected) exposure to COVID-19; Z88.8 Allergy status to other drugs, medicaments and biological substances; F17.200 Nicotine dependence, unspecified, uncomplicated; D64.9 Anemia, unspecified; E66.9 Obesity, unspecified; Z68.31 Body mass index [BMI] 31.0-31.9, adult
CPT/HCPCS: 36415; 80053; 85025; 85060; 85610; 87502; 96374; 96375; 96376; 99285-25; C9803; G0378; J1940; J2270; J2405; P9047; U0003

== ENCOUNTER 2022-01-31 01:54 | Emergency (ER) | payer OTHER ==
[~2022-01-31] VITALS: Ht 167.6 cm; Wt 66.1 kg
[~2022-01-31 01:54] MED LIST changes: +FUROSEMIDE40 MG PO; +SPIRONOLACTONE100 MG PO
[2022-01-31] MEDS ORDERED: GENERLAC10 GM/15 M PO ×2 (05:58)
--- NOTE | 2022-01-31 17:17 | EKG ---
[facility] [address] [facility] [place] [address] Signed Sinus tachycardia Prolonged QT Abnormal ECG No previous ECGs available Confirmed by KATHY COTTRELL MD ([id number]) on 01/31/2022 5:17:03 PM Electronically Signed By: KATHY COTTRELL MD 01/31/22 1717 PATIENT NAME: SUSY DUFF Electrocardiogram DATE OF : 65 PHYSICIAN: KATHY COTTRELL MD REPORT #: [id number] REPORT IS CONFIDENTIAL AND NOT TO BE RELEASED WITHOUT AUTHORIZATION
== END 2022-01-31 06:54 | disposition home or self-care (01) ==
LOC: ED 01:54
DX: K70.31 Alcoholic cirrhosis of liver with ascites (principal); K70.40 Alcoholic hepatic failure without coma; F17.200 Nicotine dependence, unspecified, uncomplicated; Z88.8 Allergy status to other drugs, medicaments and biological substances; Z79.899 Other long term (current) drug therapy
CPT/HCPCS: 36415; 49083; 51701; 71045; 80053; 81001; 82140; 82945; 83605; 83615; 83690; 84157; 84484; 85025; 85060; 85610; 85730; 87205; 89051; 93005; 93010; 99284-25; J0694; J2405; J7030

== ENCOUNTER 2022-02-04 12:14 | Inpatient (IN) | payer OTHER ==
[~2022-02-04] VITALS: Ht 167.6 cm; Wt 65.0 kg
[~2022-02-04 12:14] MED LIST changes: +GENERLAC10 GM/15 M PO
--- OUTSIDE RECORDS SUMMARY | 2022-02-04 12:18 | XMS ---
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 Siobhan has no Care Guidelines for this patient. Sergey VISIT COUNT (12 MO.) 6 [facility] [place] [facility] TOTAL 6 NOTE: Visits indicate total known visits. ED/[facility] VISIT TRACKING (12 MO.) 02/04/2022 12:[address] [facility] [place] TYPE: Emergency COMPLAINT: - MULTIPLE COMPLAINTS 01/31/2022 01:55 [facility] [place] TYPE: Emergency COMPLAINT: - CANT KEEP WATER DOWN DIAGNOSES: - Other technician terminal and repeater (current) drug therapy - Alcoholic hepatic failure without coma - Nausea with vomiting, unspecified - Allergy status to other drugs, medicaments and biological substances - Nicotine dependence, unspecified, uncomplicated - Alcoholic cirrhosis of liver with ascites 10/13/2021 11:[address] [facility] [place] TYPE: Emergency COMPLAINT: - ABD PAIN, SOB, LEGS SWELLING 09/21/2021 10:51 [facility] [place] TYPE: Emergency COMPLAINT: - ABD PRESSURE DIAGNOSES: - Other technician terminal and repeater (current) drug therapy - Nicotine dependence, unspecified, uncomplicated - Unspecified cirrhosis of liver - Unspecified abdominal pain 09/15/2021 08:53 [facility] [place] TYPE: Emergency COMPLAINT: - LOWER BACK PAIN DIAGNOSES: - Unspecified abdominal pain - Allergy status to other drugs, medicaments and biological substances - Hypokalemia - Contact with and (suspected) exposure to COVID-19 - Dorsalgia, unspecified - Other group home (current) drug therapy - Other ascites - Nicotine dependence, unspecified, uncomplicated - Liver disease, unspecified 07/30/2021 14:42 [facility] [place] TYPE: Emergency COMPLAINT: - SHORTNESS OF BREATH, BLOATED INPATIENT VISIT TRACKING (12 MO.) 10/13/2021 11:18 [facility] [place] TYPE: Observation COMPLAINT: - ABDOMINAL DISTENSION/ASCITES DIAGNOSES: - Body mass index [BMI] 31.0-31.9, adult - Obesity, unspecified - Anemia, unspecified - Allergy status to other drugs, medicaments and biological substances - Tubal ligation status - Acquired absence of other specified parts of digestive tract - Nicotine dependence, unspecified, uncomplicated - Contact with and (suspected) exposure to COVID-19 - Alcoholic cirrhosis of liver with ascites 07/30/2021 18:08 [facility] [place] TYPE: Critical Care COMPLAINT: - SEVERE HYPOKALEMIA, MASSIVE ASCITIS DIAGNOSES: - Nicotine dependence, cigarettes, uncomplicated - Contact with and (suspected) exposure to COVID-19 - Alcoholic cirrhosis of liver with ascites - Allergy status to other drugs, medicaments and biological substances - Nicotine dependence, cigarettes, uncomplicated - Other group home (current) drug therapy - Anemia, unspecified - Hypokalemia - Hypotension, unspecified - Hypokalemia - Alcoholic cirrhosis of liver with ascites - Allergy status to other drugs, medicaments and biological substances - Other technician terminal and repeater (current) drug therapy - Hypotension, unspecified - Anemia, unspecified - Alcoholic cirrhosis of liver with ascites [email or web address]
[2022-02-04] MEDS ORDERED: ALDACTONE25 MG PO (13:11)
--- NOTE | 2022-02-04 15:28 | NUR ---
PT ARRIVES TO FLOOR FROM ED VIA STRETCHER BY CHUCK WAGON DRIVER, ACCOMPANIED BY CAREGIVER AND SISTER. PT UNRESPONSIVE TO VOICE/TOUCH - MINIMAL RESPONSE TO PAINFUL STIMULI. ADMIT ASSESSMENT COMPLETE.
--- NOTE | 2022-02-04 16:00 | NUR ---
LACTULOSE ENEMA ADMINISTERED - PT TOLERATES WITHOUT DIFFICULTY OR PHYSICAL RESPONSE. FIERRO CATH PLACED, YUE 250ML IMMEDIATLEY OUT. PTS LOC REMAINS UNCHANGED. CAREGIVER AT BEDSIDE.
--- NOTE | 2022-02-04 17:00 | NUR ---
RN IN ROOM TO CHANGE ATTENDS, LARGE FORMED BM PRODUCED AFTER ENIMA. PT MOANS WITH REPOSISTIONING, NO FURTHER RESPONSE TO VERBAL COMMMANDS. VS REMAIN STABLE AND UNCHANGED. URINE OUTPUT DECREASED AFTER INITIAL OUTPUT, WILL CONTINUE TO MONITOR. FAMILY AT BEDSIDE.
--- NOTE | 2022-02-04 19:00 | NUR ---
CALL PLACED TO MD TO REPORT LOW URINE OUTPUT SINCE ADMISSION. CMP NOT DRAWN IN ED. NEW ORDER FOR LR AT 50ML/H RECEIVED AND ENTERED.
--- NOTE | 2022-02-04 20:15 | NUR ---
CALL LIGHT ON, PT FAMILY STATES RECENT BP READING DID NOT COMPLETE, CHECKED PT FOR CUFF PLACEMENT, PT FAMILY ASSISTED WITH PT POSITIONING, BP RETAKEN, NO FURTHER NEEDS AT THIS TIME
--- NOTE | 2022-02-04 21:32 | NUR ---
PATIENT IN BED. NO VERBAL RESPONSE. WITHDRAWLS TO PAIN. GRIMICES WITH PAINFUL STIMULI. GAG, COUGH, AND SWALLOW REFLUXES INTACT. FAMILY AT BEDSIDE. EDUCATED ON MEDICATIONS AND PLAN OF CARE. ALL QUESTIONS ANSWERED. ORAL SUCTION PROVIDED FOR SECRETIONS. ENEMA GIVEN WITH POSITIVE RESULTS. PATIENTS LINEN CHANGED.
--- NOTE | 2022-02-04 22:45 | NUR ---
FAMILY AT BEDSIDE FOR SPIRITUAL CARE RITUAL.
--- NOTE | 2022-02-05 | EKG ---
[facility] [address] [facility] [place], [place] [address] Signed Sinus tachycardia with short ME with occasional premature ventricular complexes Otherwise normal ECG No previous ECGs available Confirmed by KATHY COTTRELL MD ([id number]) on 02/05/2022 12:00:41 AM Electronically Signed By: KATHY COTTRELL MD 02/05/22 0000 PATIENT NAME: SUSY DUFF Electrocardiogram DATE OF : 65 PHYSICIAN: KATHY COTTRELL MD REPORT #: [id number] REPORT IS CONFIDENTIAL AND NOT TO BE RELEASED WITHOUT AUTHORIZATION
--- NOTE | 2022-02-05 00:06 | NUR ---
PATIENT RESTING IN BED. VS STBALE. REMAINS ON ROOM AIR. FAMILY AT BEDSIDE. ORAL SUCTION PROVIDED.
--- NOTE | 2022-02-05 00:45 | NUR ---
DR COTTRELL NOTIFIED OF DECREASED URINE OUTPUT FOR THIS SHIFT. TOTAL OUT THSI SHIFT IS 100ML. 3MLS THIS LAST HOUR. NO NEW ORDERS RECEIVED. CONTINUE TO MONITOR FOR THE NIGHT PER DR COTTRELL.
--- NOTE | 2022-02-05 02:20 | NUR ---
ACCUCHECK COMPLETED PER RN, RN INFORMED OF VALUE
--- NOTE | 2022-02-05 03:21 | NUR ---
PATIENT IN BED. RESTLESS. WITHDRAWLS TO NOXIOUS AND PAINFUL STUMILI. NON VERBAL. FAMILY REMAINS AT BEDSIDE. FIERRO DRAINING MINIMAL DARK YUE URINE. LR AT 50ML/HR.
--- NOTE | 2022-02-05 04:15 | NUR ---
PATIENT CONTINUES TO BE RESTLESS IN BED. PULLING AT GOWN. WAS ABLE TO STATE AN INCOMPREHENSIBLE WORD. FAMILY REMAINS AT BEDSIDE. PATIENT REPOSITIONS AND CHUCKS CHANGED. ATTENDS REMAINS CLEAN AND DRY. NO FURTHER BM POST LACTULOSE. REMAINS TACHYCARDIC TO THE 110-120'S.
--- NOTE | 2022-02-05 05:29 | NUR ---
LAB AT BEDSIDE FOR AM LABS.
--- NOTE | 2022-02-05 07:36 | NUR ---
REPORT RECIEVED, CARE OF PT ASSUMED AT THIS TIME. PT CAREGIVER AT BEDSIDE. PT MORE ACTIVE IN THE BED. REPOSITIONED ONTO LEFT SIDE.
--- NOTE | 2022-02-05 09:30 | NUR ---
PT WAKING UP. REPSONDING TO QUESTIONS. ABLE TO DRINK WATER. DISCUSSED TRANSITIONING PT FROM RECTAL TO ORAL LACTULOSE. ORDERS RECEIVED (SEE EMAR). FAMILY REMAINS AT BEDSIDE.
--- NOTE | 2022-02-05 10:20 | NUR ---
Spoke with pts spouse, Nate and her Niece, Helen. Nate works on the [employer] and states he is gone most of the time. Pts sisters and nieces are staying and caring for pt in her home. Pt lives upstairs, but family are moving her to the main floor. They deny need for equipment. They are considering a hospital bed, let them know they will need to request this through the PCP. Also of concern as [facility] has not been able to fill meds through insurance and family have been paying out of pocket. They gave me the phone number for insurance and I will call to research this. They deny further needs and family is very supportive. Plan is for pt to return home on discharge. Sister asks about cardiac and hepatology appointments and I encouraged her to discuss with pts PCP as apparently she stopped going due to covid. Let them know she will more than likely need a new referral.
--- NOTE | 2022-02-05 10:26 | NUR ---
PT TOLERATED ORAL LACTULOSE WELL.
[2022-02-05] MEDS ORDERED: LASIX40 MG PO (10:38)
--- NOTE | 2022-02-05 11:00 | NUR ---
PHARMACIST IN ROOM AT THIS TIME TO DISCUSS MEDICATIONS WITH PT'S CAREGIVER. ALL QUESTIONS ANSWERED.
--- NOTE | 2022-02-05 11:30 | NUR ---
Called [employer] and was transferred several times and finally sent to [employer] Was eventually able to speak with a person and updated, pt was discharged from a hospital last week and Alex charged the family out of pocket. Let them know the ID card showed Retail $10. She states this should have covered, but this is an old card. She will send a new card and a form for reimbursement. She requests spouse call him to update info. Returned to room and let the family know of the new information. Sister in the room and asks about a hospital bed. Let her know I spoke with the hospitalist and they requested family go through the PCP for a hospital bed. Let her know they can rent a bed through the [employer] for around $130 per month is they would like sooner.
--- NOTE | 2022-02-05 11:44 | NUR ---
MED REC COMPLETE
--- NOTE | 2022-02-05 12:00 | NUR ---
NOON ASSESSMENT COMPLETED. PT BECOMING MORE ALERT AND ORIENTED. FAMILY REMAINS AT BEDSIDE. CALL LIGHT WITHIN REACH. WILL CONTINUE TO MONITOR.
--- NOTE | 2022-02-05 12:01 | NUR ---
NUMBER OF FAMILY IN WITH PT AT THIS TIME. CONNECTED WITH PTS' SISTER AND HER OUT SIDE IN [place]. GAVE ENCOURAGEMENT, WILL FOLLOW
--- NOTE | 2022-02-05 13:00 | NUR ---
THIS RN TOOK OVER CARE OF PATIENT AT THIS TIME. PATIENT IS RESTING IN BED ON HER SIDE. PATIENTS FAMILY AT THE BEDSIDE. NO OTHER NEEDS AT THIS TIME. WILL CONTINUE TO CLOSELY MONITOR.
--- NOTE | 2022-02-05 13:37 | NUR ---
RN IN ROOM TO ADMINISTER SCHEDULED MEDICATIONS. PT WAKES WITH TOUCH AND IS ABLE TO OBEY COMMANDS. PT REPOSISTIONED AND HOB ELEVATED TO SWALLOW PO LASIX - NO DIFFICULTY NOTED. FAMILY AT BEDSIDE.
--- NOTE | 2022-02-05 14:36 | NUR ---
RN ROUNDING ON PT - PT RESTING ON SIDE WITH HOB ELEVATED, CALIBRATION SPECIALIST AT SIDE WITH MULTIPLE VISITORS IN ROOM. PT REQUESTS ICE CHIPS, PROVIDED.
--- NOTE | 2022-02-05 18:15 | NUR ---
RN IN ROOM TO ADMINISTER SCHEDULED MEDICATIONS. PT ABLE TO SWALLOW ENULOSE WITHOUT DIFFIUCLTY. PT UP TO BSC 2 PERSON ASSIST, LARGE BM PRODUCED. PT BACK TO BED, SECOND IV BOLUS STARTED. PT DENIES PAIN OR FURTHER NEEDS AT THIS TIME. CALL LIGHT IN REACH.
--- NOTE | 2022-02-05 22:03 | NUR ---
TELEPHONE REPORT FOR PATIENT TRANSFERING TO MED-SURG FROM CCU RECIEVED FROM MARYLOU NELSON.
--- NOTE | 2022-02-05 22:04 | NUR ---
PATIENT UP TO COMMODE WITH 1 PERSON ASSIST. DENIES PAIN OR SOB. VS STABLE. FAMILY REMAINS AT BEDSIDE. CALL LIGHT IN REACH. ALERT AND ORIENTED X3. DISORIENTED TO TIME.
--- NOTE | 2022-02-05 22:29 | NUR ---
PATIENT TRANSFERED TO ROOM 120 MEDSURG FROM CCU IN BED. PATIENT RESTING SOUNDLY, FAMILY AT BEDSIDE. ORIENTED CAREGIVER TO ROOM, CALL LIGHT WITHIN REACH. ASSESMENT DONE.
--- NOTE | 2022-02-06 01:06 | NUR ---
PATIENT UP TO BSC, 2 PERSON ASSIST. PATIENT APPEARS ALERT, BUT UNAWARE THAT SHE WAS TRANSFERED TO A NEW ROOM FROM CCU. REORIENTED PATIENT. NOTED URINE OUTPUT 150 ML, AND 100 ML OF LIQUID STOOL. PROVIDED PATIENT WITH [employer] SODA. NO OTHER NEEDS.
--- NOTE | 2022-02-06 05:04 | NUR ---
PATIENT APPEARED TO REST WELL DURING NIGHT. USES CALL APPROPRIATLEY, ORIENTED TO PERSON PLACE AND TIME. PATIENT DRINKING FLUIDS. BOLUS COMPLETELY ADMINISTERED. UP TO BSC X1 FOR LIQUID STOOL. URINE OUTPUT FOR NIGHT 400 ML, CLEAR CONCENTRATED YELLOW.
--- NOTE | 2022-02-06 06:31 | NUR ---
PATIENT BP SOFT THIS MORNING, 92/50 MANUALLY TO LEFT ARM. PATIENT NON-SYMPTOMATIC, NO DIZZINESS. SENT NOTE TO DR. VARGAS TO NOTIFY.
--- NOTE | 2022-02-06 07:30 | NUR ---
THIS RN AND OMAR MARIN RECEIVED SHIFT REPORT FROM OMAR LEON. PATIENT RESTING QUIETLY IN BED ON HER LEFT SIDE AND PATIENT'S SISTER IS IN THE ROOM AT BEDSIDE. PATIENT DENIES ANY CARE NEEDS AT THIS TIME. CALL LIGHT IS IN REACH.
--- NOTE | 2022-02-06 07:30 | NUR ---
REPORT RECEIVED FROM OMAR LENO. PT LAYING IN BED WITH EYES CLOSED. PULSE OX 95% PT ON ROOM AIR. NO NEEDS AT THIS TIME. CALL LIGHT IN REACH.
--- NOTE | 2022-02-06 07:45 | NUR ---
PT CALL LIGHT ON. PT STATES SHE IS FINISHED WITH COMODE USE. MEDIUM SIZED LIQUID BROWN BOWEL MOVEMENT NOTED. PT UP TO STAND WITH 2 PERSON ASSIST. AKANKSHA CARE PERFORMED. DEPENDS CHANGED. PT AGREES TO TRY GETTING UP TO CHAIR. 1 PERSON ASSIST, HUG STAND UP TO CHAIR. WARM BLANKETS PROVIDED. FAMILY REMAINS AT BEDSIDE. NO ADDITIONAL REQUESTS OR COMPLAINTS. CALL LIGHT WITHIN REACH. PTS PRIMARY RN UPDATED.
--- NOTE | 2022-02-06 07:50 | NUR ---
IN TO ASSIST HAY CHOPPER WITH PT TOILETING. 2 PERSON ASSIST PT TO COMMODE AND THEN TO CHIAR. DARK RED LIQUID STOOL NOTED. NO OTHER NEEDS FROM THIS RN AT THIS TIME.
--- NOTE | 2022-02-06 08:14 | NUR ---
PATIENT REQUESTED TO STAY IN BED THIS AM. CAREGIVER IN ROOM, AM CARE DONE. ICE CHIPS WERE GIVEN AND PT HAS NO OTHER NEEDS AT THIS TIME. CALL LIGHT WITHIN REACH.
--- NOTE | 2022-02-06 10:26 | NUR ---
PATIENT LYING IN BED AFTER MEAL. VITALS AND I/O'S COMPLETED. CAREGIVER IN ROOM CALL LIGHT WITHIN REACH.
--- NOTE | 2022-02-06 11:10 | NUR ---
PATIENT BACK IN BED RESTING WITH VISITORS AT BEDSIDE. ORDERED PO K+ GIVEN. PATINE DENIES ANY OTHER CARE NEEDS AT THIS TIME. CALL LIGHT IS IN REACH.
--- NOTE | 2022-02-06 12:38 | NUR ---
PATIENT BUSY EATING HER LUNCH AND VISTING WITH VISITORS. PATIENT WILL HAVE VADIM MARTÍNEZ'D AFTER SHE FINISHES UP HER LUNCH. PATIENT HAS NO OTHER CARE NEEDS AT THIS TIME. CALL LIGHT IS IN REACH.
--- NOTE | 2022-02-06 12:45 | NUR ---
VADIM COLLAZO AT THIS TIME, PT HAS PULL-UP ON. REMINDED PT TO CALL WHEN SHE HAS TO GO TO THE BATHROOM.
--- NOTE | 2022-02-06 12:58 | NUR ---
AFTERNOON LACTULOSE GIVEN. PATIENT CONTINUES TO HAVE VISITORS. NO OTHER CARE NEEDS AT THIS TIME. FIERRO IS OUT. CALL LIGHT IS IN REACH.
--- NOTE | 2022-02-06 13:25 | NUR ---
PATIENT IN BED AFTER MEAL. VITALS AND I/O'S COMPLETED, ICE CHIPS GIVEN. PT HAS NO OTHER NEEDS AT THIS TIME, CALL LIGHT WITHIN REACH.
--- NOTE | 2022-02-06 14:15 | NUR ---
PATIENT OUT IN [place]OSS WALKING WITH 2 PERSON STANDBY ASSIST AND FWW. PATIENT WALKED ABOUT 25 FEET AND HAD SOME DIZZINESS SO PATIENT WALKED BACK TO HER ROOM TO THE BATHROOM AND THEN TO BED. PATIENT HAD C/O OF SOME DIZZINESS AND DR. VARGAS IS GOING TO PUT PATIENT BACK ON SOME IV FLUIDS OVER NIGHT. DID OBSERVE PATIENT AMBULATING.
--- NOTE | 2022-02-06 15:38 | NUR ---
THIS RN IN TO SEE PATIENT. PATIENT DENIES ANY PAIN OR NAUSEA AT THIS TIME. MALE VISITOR REMAINS AT BEDESIDE. AFTERNOON ASSESSMENT COMPLETE AND ESSENTIALL UNCHANGED. PATIENT HAD C/O OF SOME DIZZINESS WHEN SHE GOT UP 1PSBA WITH FWW AND WALKED IN THE HALLWAY. HAS RESTARTED LR@125MLS/HR AND THIS RN HAS JUST STARTED THAT ALONG WITH 2GM MG+ RIDER. PATIENT ALSO TOOK HER PO POTASSIUM. PATIEN IS NOT EXCITED TO BE AT ALL ACTIVE AND PREFERS TO LAY IN BED AND SLEEP. PATIENT DENIES ANY OTHER NEEDS AT THIS TIME. CALL LIGHT IS IN REACH.
--- NOTE | 2022-02-06 18:10 | NUR ---
PATIENT HAS NOT EATEN DINNER YET AND SAYS SHE WANTS TO SAVE IT FOR A LITTLE WHILE. PATIENT WATCHING TV. VISITOR AT BEDSIDE. CALL LIGHT IN REACH. PATIENT HAS NO CARE NEEDS AT THIS TIME.
--- NOTE | 2022-02-06 19:15 | NUR ---
REPORT RECEIVED FROM NIGHT RN - PT RESTING ON SIDE AWAKE, DENIES NEEDS AT THIS TIME. FAMILY AT BEDSIDE.
--- NOTE | 2022-02-06 20:55 | NUR ---
RN IN ROOM TO ASSESS PT AND ADMINISTER MEDICATIONS. PT RESTING ON SIDE VISITING WITH FAMILY IN ROOM. PT AAO X 3. PT DENIES PAIN, ABLE TO SWALLOW ORAL LACTULOSE WITHOUT DIFFICULTY. ENCOURAGED SELF CARE AND FEEDING, PT DEMONSTRATED CAPABILITY.
--- NOTE | 2022-02-06 21:20 | NUR ---
RN IN ROOM TO RESPOND TO CALL LIGHT. PT UP TO COMMODE 1 PERSON STANDBY TO COMMODE. PT HAD LARGE LIQUID BM UNMEASURED WELL URINE VOID. PT THEN BECAME SICK TO STOMACH AND HAD LARGE UNMEASURED EMESIS. EMESIS NOTED TO HAVE EGGS FROM BREAKFAST. PT STATES SHE FEELS MUCH BETTER AFTER VOMITING. BACK TO BED, PT DENIES FURTHER NEEDS. CAREGIVER AT SIDE.
--- NOTE | 2022-02-06 23:14 | NUR ---
RN ROUNDING ON PT - PT RESTING IN BED, DENIES NAUSEA. REPOSISTIONED IN BED. CAREGIVER AT BEDSIDE.
--- NOTE | 2022-02-07 00:01 | NUR ---
RN ROUNDING ON PT - PT RESTING IN BED ASLEEP ON SIDE. CAREGIVER IN ROOM SLEEPING ON COUCH. CALL LIGHT IN REACH.
--- NOTE | 2022-02-07 03:19 | NUR ---
RN ROUNDING ON PT - ASLEEP ON SIDE, RR EVEN AND UNLABORED. CAREGIVER ASLEEP ON COUCH. CALL LIGHT IN REACH.
--- NOTE | 2022-02-07 04:05 | NUR ---
RN ASSISTS PT TO BATHROOM USING FWW AND STANDBY ASSIST. LIQUID STOOL PRODUCED MIXED WITH UNMEASURED URINE. PT SHOWING INCREASED STRENGTH AND ABILITY TO GET SELF INTO BED AND BOOST UP IN BED. FRESH WATER AND ICE CHIPS PROVIDED. CAREGIVER DENIES FURTHER NEEDS.
--- NOTE | 2022-02-07 05:45 | NUR ---
RN IN ROOM TO ASSESS PT - PT AWAKE RESTING ON SIDE. DENIES NAUSEA AND REQUESTS SPRITE. VS NOTED TO HAVE ELEVATED TEMP WHICH ON REVIEW OF VS THIS IS NOT PREVIOUSLY NOTED. PT DENIES PAIN. AMBULATES TO BATHROOM USING FWW AND PRODUCES LIQUID BM MIXED WITH UNMEASURED URINE. CAREGIVER AT BEDSIDE, DENIES FURTHER NEEDS.
--- NOTE | 2022-02-07 06:37 | NUR ---
MD NOTIFIED OF TEMP AND TACHYPNEA THIS AM WELL EMESIS LAST NIGHT. NEW ORDER RECEIVED FOR CHEST XRAY - ENTERED.
--- NOTE | 2022-02-07 07:30 | NUR ---
THIS RN AND OMAR MARIN GIVEN SHIFT REPORT FROM OMAR KIDD. PATIET RESTING QUIETLY ON HER RIGHT SIDE, EYES CLOSED, RESPS REGULAR AND EVEN, VISITOR ASLEEP ON THE SOFA, CALL LIGHT IN REACH. PATIENT HAS NO NURSE CARE NEEDS AT THIS TIME.
--- NOTE | 2022-02-07 07:55 | NUR ---
patient resting in the bed. room cleaned up. call light with in reach. no further needs at this time.
--- NOTE | 2022-02-07 08:16 | NUR ---
PATIENT'S IV FLUIDS COMPLETE AND PATIENT IS NOW NS LOCKED. PATIENT RESTING QUIETLY IN BED, EYES CLOSED, RESPIRATIONS ARE REGULAR AND EVEN, AND CALL LIGHT IN REACH. VISITOR ASLEEP ON THE SOFA.
--- NOTE | 2022-02-07 09:16 | NUR ---
CALLED AND ORDERED A STRAIGHT CATH UA FOR A FEVER HE HAD BEEN CONTACTED ABOUT ON MEDICAL LIAISON. ORDER PUT IN BY THIS RN. THIS RN AND OMAR BLANCO WENT IN TO SEE PATIENT WHO WAS EATING BREAKFAST. SHE AGREED TO LAY DOWN LONG ENOUGH TO GET THE UA, WHICH WAS GATHERED WITHOUT DIFFICULTY AND SENT TO LAB. PATIENT BACK IN HER BEDSIDE ARMCHAIR EATING BREEAKFAST. CALL LIGHT IS IN REACH.
--- NOTE | 2022-02-07 09:45 | NUR ---
THIS RN IN TO SEE PATIENT AND ALL AM MEDS WERE GIVEN. PATIENT ATE ABOUT 95% OF HER BREAKFAST AND IS VISITING WITH VISITORS. AM ASSESSMENT COMPLETE. BOWEL TONES MORE ACTIVE, BUT ABD LOOKS MORE DISTENDED THAN YESTERDAY. CONTINUES TO HAVE LIQUIDY STOOLS FROM LACTULOSE. ZS=326, RR=22, B/P REMAINS LOW BUT CONSISTANT WITH PRESSURE FOR THE LAST 2 DAYS. PATIENT HAS NO FEVER AT THIS TIME AND IS ABLE TO MOVE HERSELF WITH FWW BACK AND FORTH FROM THE BEDSIDE ARMCHAIR TO THE BED. INFORMED OF INCREASED HR AND RESPIRATIONS AND THAT THE PATIENT IS AFEBRILE AT THIS TIME, BUT ALSO THAT THE PATIENT'S ABD IS MORE DISTENDED. WILL EVALUATE PATIENT ON HIS ROUNDS. CALL LIGHT IS IN PATIENT'S REACH.
--- NOTE | 2022-02-07 11:46 | NUR ---
THIS RN IN ROOM TO ASSIST PATIENT TO THE RESTROOM 1 PERSON DEBRA WITH FWW. PATIENT NEEDS SUSANA VOID THIS RN JUST GAVE 40MG IV LASIX AND PO DIURETIC. ROCHEPIN IV ALSO HUNG AND IS RUNNING. PATIENT REMAINS AFEBRILE AT IS TIME WITH TEMP OF 98.6F ORAL. PATIENT ONLY VOIDED 100MLS AND HAD A SMALL LIQUID STOOL AND IS NOW BACK IN BED. PATIENT DECLINED TO SIT IN THE CHAIR FOR LUNCH. CALL LIGHT IN REACH. PATIENT HAS NO OTHER CARE NEEDS AT THIS TIME.
--- NOTE | 2022-02-07 13:52 | NUR ---
PATIENT RESTING QUIETLY IN BED ON HER RIIGHT SIDE, RESPIRATIONS ARE REGULAR AND EVEN, EYES CLOSED, CALL LIGHT IN REACH. PATIENT'S AT BEDSIDE.
--- NOTE | 2022-02-07 14:41 | NUR ---
AFTERNOON ASSESSMENT COMPLETE AND ESSENTIALLY UNCHANGED FORM AM ASSESSMENT. B/P REMAINS LOW AND LOW B/P MEDS JUST GIVEN ALONG WITH SCHEDULED LASIX AND LACTULOSE. PATIENT IS NO HUNGRY AND DECLINED LUNCH FOR THE TIME BEING. PATIENT DENIES ANY OTHER CARE NEEDS AT THIS TIME AND IS VISTING WITH A FAMILY MEMBER WHO IS AT BEDSIDE. CALL LIGHT IS IN REACH.
--- NOTE | 2022-02-07 15:20 | NUR ---
THIS RN CALLED AND INFORMED HIM PATIENT HAS HAD HER 2 DOSES OF LASIX AND HAS ONLY VOIDED 100MLS THUS FAR, AND THAT EVEN WITH THE MEDICATION GIVEN FOR LOW BLOOD PRESSURE PATIENT'S SBP REMAINS IN THE 90'S. IS ORDERING SOME ALBUMIN AT THIS TIME TO SEE IF THIS WILL IMPROVE PATIENT'S URINE OUTPUT.
--- NOTE | 2022-02-07 16:21 | NUR ---
ALBUMIN STARTED IN PATIENT RAC IV. RW IV LEAKING NOW AND HAS BEEN DC'D. PATIENT ATE ABOUT 5% OF HER LUNCH AND IS AWAITING DINNER. PATIENT'S AND FAMILY VISTING AT BEDSIDE. CALL LIGHT IN REACH. PATIENTHAS NO OTHER NURSE CARE NEEDS AT THIS TIME.
--- NOTE | 2022-02-07 17:05 | NUR ---
THIS RN IN AND GAVE PATIENT'S 3 TABS OF OXYCONTIN WITH ABD RUQ/BACK PAIN 12/16. NO NAUSEA. PATIENT SET UP FOR DINNER AND IS GOING TO TRY TO EAT. ICEWATER REFILLED. PATIENT HAS NO OTHER NEEDS AT THIS TIME. CALL LIGHT IS IN REACH.
--- NOTE | 2022-02-07 17:27 | NUR ---
PATIENT HAS NO TAKEN HER PM LACULOSE AND IS BUSY TRYING TO EAT SOME DINNER WITH THE ASSISTANCE OF A VISITOR. PATIENT DENIES ANY OTHER CARE NEEDS AT THIS TIME. WAS INFORMED THE PATIENT HAS HAD 2 MORE VOIDS, ONE FOR 300MLS AND A SECOND WHICH SHE MISSED THE HAT IN THE TOILET. INFORMING THIS RN ABOUT THE ACTION OF THE ALBUMIN AND THE LASIX AND IS GLAD PATIENT'S URINE OUTPUT HAS PICKED UP.
--- NOTE | 2022-02-07 19:25 | NUR ---
bedside report from Arben NELSON, pt on left side resp rate even, eyes closed, family in room, white board updated, call light in reach.
--- NOTE | 2022-02-07 20:13 | NUR ---
PATIENT ASSISTED TO THE RESTROOM A 1PA W/FWW. PATIENT ABLE TO VOID AND HAVE BM. PATIENT IS BACK IN BED RESTING. PATIENT DENIES ANY FURTHER NEEDS AT THIS TIME. CALL LIGHT IN REACH. FAMILY IN ROOM.
--- NOTE | 2022-02-08 00:25 | NUR ---
ANSWERED CALL LIGHT. 1 PA/SBA TO THE BATHROOM USING WALKER AND BACK TO BED. ICE WATER, CUP OF ICE AND SODA PROVIDED. ICE WATER FOR THE CAREGIVER PROVIDED.
--- NOTE | 2022-02-08 01:09 | NUR ---
pt resting on right side, iv meds fusing in iv wnl to right arm. resp even call light in reach.
--- NOTE | 2022-02-08 01:46 | NUR ---
ASSISTED PATIENT BACK TO BED FROM BATHROOM. ASSISTED IN AKANKSHA CARE. SIDE TABLE AND CALL LIGHT IN REACH. NO OTHER CARE NEEDS AT THIS TIME.
--- NOTE | 2022-02-08 02:16 | NUR ---
vitals taken before po meds, wnl - pt awakens and back to sleep easily. denies other need, call light in reach - acites to abd same, very large abd.
--- NOTE | 2022-02-08 06:02 | NUR ---
SBA TO THE BATHROOM AND BACK TO BED. V/S AND I&O'S TAKEN AND CHARTED. FRESCH ICE WATER, ICE CHIPS AND SODA PROVIDED. CAREGIVER IN THE ROOM AND PROVIDED WITH COFFEE.
--- NOTE | 2022-02-08 07:30 | NUR ---
THIS RN AND OMAR MARIN RECEIVED SHIFT REPORT FROM BELLA Comer RN. PATIENT RESTING QUIETLY ON HER RIGHT SIDE, EYES CLOSED, RESPIRATIONS ARE REGULAR AND EVEN, AND CALL LIGHT IN REACH. PATIENT HAS NO NURSE CARE NEEDS AT THIS TIME. PATIENT FAMILY MEMBER IN ROOM ON THE SOFA.
--- NOTE | 2022-02-08 08:00 | NUR ---
THIS RN IN TO SEE PATIENT. AM MEDS GIVEN. PATIENT DENIES PAIN OR NAUSEA. IV FLUSHED AND WNL AND IV ANTIBIOTIC HUNG. PATIENT AWATING BREAKFAST TO ARRIVE. PATIENT HAS NO OTHER NURSE CARE NEEDS AT THIS TIME. CALL LIGHT IN REACH AND FAMILY MEMBER AT BEDSIDE.
--- NOTE | 2022-02-08 08:50 | NUR ---
PATIENT UP IN BEDSIDE RCLINER EATING BREAKFAST WITH A VISITOR AND WATCHING TV. AM ANTIBIOTIC COMPLETE AND IV NS LOCKED AT THIS TIME. PATIENT DENIES ANY CARE NEEDS AT THIS TIME. CALL LIGHT IS IN REACH.
--- NOTE | 2022-02-08 09:20 | NUR ---
Spoke with pt and her niece, Cinthia. Family cont. to want a hospital bed and I again referred them to their PCP as the hospitalist requested they contact the PCP for this order.
--- NOTE | 2022-02-08 10:31 | NUR ---
THIS RN IN AND HUNG ALBUMIN AND GAVE SCHEDULED LOW B/P MEDS. PATIENT VISITING WITH 4 VISITORS AT THIS TIME AND HAS NO NURSE CARE NEEDS AT THIS TIME. CALL LIGHT IS IN REACH.
--- NOTE | 2022-02-08 11:20 | NUR ---
ALBUMIN AND FLUSH COMPLETED AND IV NS LOCKED AGAIN. PATIENT CONTINUES TO LAUGH AND VISIT WITH THE 4 VISITORS SHE CURRENTLY HAS IN HER ROOM. PATIENT HAS NO OTHE CARE NEEDS AT THIS TIME. CALL LIGHT IS IN REACH.
--- NOTE | 2022-02-08 11:23 | NUR ---
CONSULT RECEIVED FOR DIET ADVICE FOR CIRRHOSIS. PATIENT'S AND TWO AUNTS ARE IN THE ROOM VISITING. ONE AUNT WILL BE DOING THE COOKING AND THE OTHER AUNT WILL PROVIDE CAREGIVING HELP. PATIENT HAS DAYS WHERE HER APPETITE IS NOT GOOD, SO SHE EATS A COUPLE OF SMALL SNACKS. OTHER DAYS SHE IS ABLE TO EAT SMALL MEALS, IT ALL DEPENDS ON HOW SHE IS FEELING. THE AUNTS DO LOOK AT FOOD LABELS AND ARE FAMILIAR WITH LOOKING AT SODIUM CONTENT. I PROVIDED A SHEET WITH TIPS FOR EATING WITH CIRRHOSIS, SUCH EAT SMALLER AMOUNTS EVERY 2-3 HOURS. A NUTRITION DRINK CAN COUNT A MEAL OR SNACK WELL. I ALSO PROVIDED A HANDOUT ON LOW-SODIUM NUTRITION THERAPY AND A LOW-SODIUM SNACK LIST. ONE OTHER TIP IS FOR THE PATIENT TO EAT A SNACK BEFORE BED TO PREVENT MUSCLE CATABOLISM OVERNIGHT. THE AUNTS ASKED GOOD QUESTIONS WHICH I ANSWERED. MY NAME AND OFFICE # PROVIDED ON THE HANDOUTS IN CASE FURTHER QUESTIONS ARISE.
--- NOTE | 2022-02-08 12:52 | NUR ---
THIS RN IN AND GAVE 1300 LACTULOSE. PATIENT DENIES ANY CARE NEEDS AT THIS TIME AND IS VISITING WITH HER . HAS JUST ARRIVED TO SEE THE PATIENT.
--- NOTE | 2022-02-08 13:59 | NUR ---
THIS RN HAD JUST CHECKED IN ON PATIENT AND . PATIENT RESTING QUIETLY NAPPING ON HER LEFT SIDE, EYES CLOSED, RESPIRATIONS REGULAR AND EVEN, AND CALL LIGHT IN REACH. DENIED ANY CARE NEEDS AT THIS TIME.
--- NOTE | 2022-02-08 14:01 | NUR ---
IN ROOM TO ADMINISTER MEDICATION, SEE MAR. PT LAYING ON LEFT SIDE WITH EYES CLOSED. PT AWAKENS EASILY WHEN SPOKEN TO. PT TAKES PO MEDICATION WITH NO ISSUES. PT RESUESTING TO USE THE RESTROOM. PT AMBULATES FROM BED TO BATHROOM WITH FWW AND STANDBY ASSIST. PT VERBALISES UNDERSTANDING TO PULL CALL LIGHT CORD ON WALL WHEN FINISHED. THIS RN NOTIFIED BEATRIZ CAIN THAT PT WAS USING THE BATHROOM AND WILL CALL WHEN FINISHED.
--- NOTE | 2022-02-08 14:38 | NUR ---
PATIENT IS RESTING IN BED, DENIES NEEDS AT THIS TIME.
--- NOTE | 2022-02-08 15:32 | NUR ---
THIS RN PRESENT IN THE ROOM WITH PATIENT ANDRZEJ NIH STROKE SCORE=22. PATIENT'S SPEECH IS A LITTLE SLURRED, BUT SHE IS ORIENTED TO PERSON PLACE AND TIME. PATIENT UNABLE TO MOVE HER LEFT ARM AND LEG. PATIENT GAZE IS STUCK IN THE RIGHT UPPER FIELD AT THIS TIME. NEW 20G IV STARTED IN THE LAC. THIS RN AND OMAR MARIN REMAIN AT BEDSIDE WITH PATIENT.
--- NOTE | 2022-02-08 17:52 | NUR ---
THIS RN IN TO GIVE EVENING MEDS, EXCEPT LACTULOSE WHICH WAS HELD SINCE PATIENT HAS ALREADY HAD 3 BMS TODAY. PATIENT TOOK MEDS WITHOUT DIFFICULTY. AFTERNOON ASESSMENT COMPLETE. PATIENT'S JUST ARRIVED WITH A MILKSHAKE FOR THE PATIENT. PATIENT DENIES ANY OTHER CARE NEEDS FROM THIS RN AT THIS TIME. CALL LIGHT IN REACH.
--- NOTE | 2022-02-08 19:25 | NUR ---
report from crista melissa, pt had multiple bm's today - ok to hold lactulose tonight, iv is sl except meds, pt a&o x 3, family in room, denies needs.
--- NOTE | 2022-02-08 21:34 | NUR ---
IV R FA NOT IN COMPUTER TO CHART? FOUND ON ASSESSMENT WNL - FUSING WELL. ENTERED IN TO [employer]. UNKNOWN TO WHY IT WAS NOT IN PREVIOUSLY?
--- NOTE | 2022-02-08 21:56 | NUR ---
CALL LIGHT ANSWERED. PT UP TO BR WITH FWW AND SBA TO VOID AND HAVE LIQUID GREEN BM. STAFF ASSIST WITH AKANKSHA CARE. BACK TO BED. GAIT STEADY. ICE CHIPS PROVIDED PER REQUEST. NO FURTHER NEEDS.
--- NOTE | 2022-02-09 01:03 | NUR ---
NO CHANGES WITH PT, RESTING ON LEFT SIDE, SL IV - FAMILY IN ROOM, CALL LIGHT IN REACH.
--- NOTE | 2022-02-09 01:44 | NUR ---
pt awakened for vitals and po meds -denies needs family in room.
--- NOTE | 2022-02-09 03:02 | NUR ---
no changes, pt resting on side. resp even.
--- NOTE | 2022-02-09 07:48 | NUR ---
THIS RN IN TO SEE PATIENT AND AM AASSESSMENT COMPLETE AND AM MEDS GIVEN. PATIENT HAS ANTICIPATED DC TODAY. FAMILY MEMBER AT BEDSIDE. PATIENT SEEMS TO BE IN GOOD SPIRITS AND IS JOKING WITH THIS RN. AWAITING BREAKFAST. FAMILY MEMBER AT BEDSIDE. CALL LIGHT IN REACH.
--- NOTE | 2022-02-09 08:20 | NUR ---
Received return from Shellie Crabtree at [facility]. She scheduled Nan to be see 02/22/22 at 4 pm as Marie Hendrickson is out of the office until the week of the . Let her know the family would like a hospital bed. Shellie will tell the pcp.
[2022-02-09] MEDS ORDERED: XIFAXAN550 MG PO (10:24)
[2022-02-09] MEDS ORDERED: GENERLAC10 GM/15 M PO (10:24)
[2022-02-09] MEDS ORDERED: CEFPODOXIME PR200 MG PO (10:25)
[2022-02-09] MEDS ORDERED: MIDODRINE HCL10 MG PO (10:26)
--- NOTE | 2022-02-09 11:05 | NUR ---
THIS RN IN TO SEE PATIENT AND GAVE DC INSTRUCTIONS AND F/U APPOINTMENT INFOR TO PATIENT AND FAMILY. VS STABLE. IV DC'D INTACT. PHARMACY HAS GONE OF RX AND MEDICATION CHANGES AND INSTRUCTIONS. PATIENT AND FAMILY VERBALIZE UNDERSTANDING TO ALL INFORMATION. PATIENT DC'D TO FAMILY'S CAR TO GO TO HER MD APPOINTMENT FOR A BEELY TAP THIS AFTERNOON. BEATRIZ CAIN TAKING PATIENT IN WC TO HER CAR.
== END 2022-02-09 11:05 | disposition home or self-care (01) | DRG 441 ==
LOC: ED 12:14 → CCU 14:18 → MS 14:18
PROVIDERS: ADMIT Internal Medicine; ATTEND Internal Medicine
DX: K72.00 Acute and subacute hepatic failure without coma (principal); K76.7 Hepatorenal syndrome; N17.9 Acute kidney failure, unspecified; N39.0 Urinary tract infection, site not specified; D68.9 Coagulation defect, unspecified; K76.6 Portal hypertension; Z20.822 Contact with and (suspected) exposure to COVID-19; E87.6 Hypokalemia; E83.42 Hypomagnesemia; K70.31 Alcoholic cirrhosis of liver with ascites; D73.1 Hypersplenism; F17.210 Nicotine dependence, cigarettes, uncomplicated; Z71.6 Tobacco abuse counseling; Z88.8 Allergy status to other drugs, medicaments and biological substances; Z98.51 Tubal ligation status; Z98.890 Other specified postprocedural states; Z79.899 Other long term (current) drug therapy
CPT/HCPCS: 36415; 70450; 71045; 80048; 80053; 81001; 82140; 83735; 84300; 85025; 85060; 85610; 85730; 87088; 87502; 93005; 93010; A9270; C9113; C9803; J0696; J1940; J2405; J3475; J3480; J7060; J7120; J7121; P9047; U0003

== ENCOUNTER 2023-11-08 02:39 | Emergency (ER) | payer OTHER ==
[~2023-11-08] VITALS: Ht 167.6 cm; Wt 80.0 kg
--- NOTE | ~2023-11-08 | EKG ---
[facility] [address] [place], [place] [address] Draft EK completed, results pending confirmation PATIENT NAME: SUSY DUFF PHIL Electrocardiogram DATE OF : 65 PHYSICIAN: PRELIMINARY REPORT #: [id number] REPORT IS CONFIDENTIAL AND NOT TO BE RELEASED WITHOUT AUTHORIZATION
[~2023-11-08 02:39] MED LIST changes: +ALDACTONE25 MG PO; +CEFPODOXIME PR200 MG PO; +LASIX40 MG PO; +MAGNESIUM400 MG PO; +XIFAXAN550 MG PO
[2023-11-08] MEDS ORDERED: MORPHINE SULFATE 4 MG/ML VIAL IV ONE (03:00)
[2023-11-08] MEDS ORDERED: ondansetron HCL 4 MG/2 ML VIAL IV ONE (03:00)
[2023-11-08] MEDS ORDERED: NITROGLYCERIN 0.4 MG SUBL SL PRN (03:00)
[2023-11-08] MEDS ORDERED: droPERidol 5 MG/2 ML VIAL IV ONE (03:00)
[2023-11-08] MEDS ORDERED: ASPIRIN 81 MG CHEW PO ONE (03:00)
[2023-11-08 03:06] LABS: MONOCYTES 14.5 % (0-12)
[2023-11-08 03:08] LABS: EOSINOPHILS 2.8 % (0-6); HEMATOCRIT 42.8 % (35.0-50.0); HEMOGLOBIN 14.5 g/dL (12.0-18.0); LYMPHOCYTES 33.6 % (24-44); MCH 30.8 (27-36); MCHC 33.8 g/dl (30-36); MCV 91.1 fl (81-99); NEUTROPHILS 48.1 % (39-80); PLATELET COUNT 127 K/uL (140-440); RDW 15.2 (10.5-15.0)
[2023-11-08 03:15] LABS: INR 1.15 (0.80-1.30)
[2023-11-08 03:27] LABS: ALBUMIN 3.2 g/dL (3.4-5.0); ALBUMIN/GLOBULIN RATIO 0.8 (1.1-2.4); BILIRUBIN, TOTAL 1.8 ng/dL (0.2-1.0); BUN/CREATININE RATIO 14.41 (6.0-28.6); CALCIUM 8.5 mg/dL (8.5-10.1); CREATININE, SERUM 1.11 mg/dL (0.55-1.02); MAGNESIUM 1.6 mg/dL (1.8-2.4); PROTEIN, TOTAL 7.2 g/dL (6.4-8.2)
[2023-11-08 03:29] LABS: ALCOHOL, MEDICAL 128 ng/dL (<3)
[2023-11-08] MEDS ORDERED: ONDANSETRON ODT8 MG PO (04:58)
[2023-11-08] MEDS ORDERED: TRAMADOL HCL50 MG PO (04:58)
[2023-11-08] MEDS ORDERED: ONDANSETRON 4 MG HOME.PACK SL ONE (05:00)
[2023-11-08] MEDS ORDERED: TRAMADOL HCL 50 MG HOME.PACK PO ONE (05:00)
[2023-11-08 05:56] VITALS: BP 106/63
== END 2023-11-08 05:57 | disposition home or self-care (01) ==
LOC: ED 02:39
PROVIDERS: Family Medicine
DX: R07.89 Other chest pain (principal); K70.30 Alcoholic cirrhosis of liver without ascites; K85.90 Acute pancreatitis without necrosis or infection, unspecified; F17.200 Nicotine dependence, unspecified, uncomplicated; Z88.8 Allergy status to other drugs, medicaments and biological substances; Z79.899 Other long term (current) drug therapy
CPT/HCPCS: 36415; 71045; 71260; 80053; 83690; 83735; 83880; 84484; 85025; 85379; 85610; 93005; 93010; 99285-25; A9270; G0480; J2405

== ENCOUNTER 2024-05-04 18:04 | Emergency (ER) | payer OTHER ==
[~2024-05-04] VITALS: Ht 167.6 cm; Wt 81.1 kg
[~2024-05-04 18:04] MED LIST changes: +TRAMADOL HCL50 MG PO
[2024-05-04 18:29] LABS: EOSINOPHILS 0.6 % (0-6); HEMATOCRIT 35.6 % (35.0-50.0); HEMOGLOBIN 11.9 g/dL (12.0-18.0); LYMPHOCYTES 10.9 % (24-44); MCH 31.3 (27-36); MCHC 33.4 g/dl (30-36); MCV 93.7 fl (81-99); MONOCYTES 7.6 % (0-12); NEUTROPHILS 76.9 % (39-80); PLATELET COUNT 124 K/uL (140-440); RDW 15.2 (10.5-15.0)
[2024-05-04] MEDS ORDERED: ondansetron HCL 4 MG/2 ML VIAL IV ONE ×2 (18:30→19:30)
[2024-05-04] MEDS ORDERED: PANTOPRAZOLE SODIUM 40 MG/10 ML VIAL IV ONE ×2 (18:30→21:00)
[2024-05-04] MEDS ORDERED: SODIUM CHLORIDE 0.9% 2,000 ML IV PRN (18:30)
[2024-05-04 18:40] LABS: INR 1.42 (0.80-1.30)
[2024-05-04 18:42] LABS: ALBUMIN 2.6 g/dL (3.4-5.0); ALBUMIN/GLOBULIN RATIO 0.79 (1.1-2.4); ALCOHOL, MEDICAL <3 ng/dL (<3); ALKALINE PHOSPHATASE 117 U/L (46-116); ALT (SGPT) 79 U/L (14-59); ANION GAP 15.9 (7-21); AST (SGOT) 159 U/L (15-37); BILIRUBIN, TOTAL 1.9 ng/dL (0.2-1.0); BUN/CREATININE RATIO 36.47 (6.0-28.6); CALCIUM 8.4 mg/dL (8.5-10.1); CARBON DIOXIDE 25 mmol/L (21-32); CHLORIDE 104 mmol/L (98-107); GLOMERULAR FILTRATION RATE,EST 34 mL/min (>60); POTASSIUM 3.9 mmol/L (3.5-5.1); PROTEIN, TOTAL 5.9 g/dL (6.4-8.2); UREA NITROGEN 62 mg/dL (7-18)
[2024-05-04 19:04] LABS: BILIRUBIN, URINE NEGATIVE (negative); BLOOD/HGB, URINE NEGATIVE (Negative); KETONE, URINE TRACE (Negative); LEUK ESTERASE, URINE NEGATIVE (negative); NITRITE, URINE NEGATIVE (negative)
[2024-05-04 19:05] LABS: PARTIAL THROMBOPLASTIN TIME 36.3 Sec (22.9-41.3)
[2024-05-04] MEDS ORDERED: SODIUM CHLORIDE 0.9% IV SCH (19:15)
[2024-05-04] MEDS ORDERED: OCTREOTIDE ACETATE 100 MCG/ML VIAL IV ONE (19:15)
[2024-05-04] MEDS ORDERED: OCTREOTIDE ACETATE IV SCH (19:15)
[2024-05-04 19:19] LABS: AMPHETAMINES, URINE NEGATIVE (NEGATIVE); BARBITURATES, URINE NEGATIVE (NEGATIVE); BENZODIAZEPINE, URINE NEGATIVE (NEGATIVE); BUPRENORPHINE, URINE NEGATIVE (NEGATIVE); CANNABINOID, URINE NEGATIVE (NEGATIVE); COCAINE, URINE NEGATIVE (NEGATIVE); ECSTASY, URINE NEGATIVE (NEGATIVE); FENTANYL, URINE NEGATIVE (NEGATIVE); METHADONE, URINE NEGATIVE (NEGATIVE); OPIATES, URINE NEGATIVE (NEGATIVE); OXYCODONE, URINE NEGATIVE (NEGATIVE); PHENCYCLIDINE, URINE NEGATIVE (NEGATIVE)
[2024-05-04] MEDS ORDERED: droPERidol 5 MG/2 ML VIAL IV ONE ×2 (19:30→21:45)
[2024-05-04 19:36] LABS: HEMOGLOBIN 11.1 g/dL (12.0-18.0); RBC 3.53 M/ul (4.3-5.7)
[2024-05-04] MEDS ORDERED: OCTREOTIDE ACETATE 100 MCG/ML VIAL ONE (19:36)
[2024-05-04 19:39] LABS: BASOPHILS 0.2 % (0-2); EOSINOPHILS 0.2 % (0-6); HEMATOCRIT 33.1 % (35.0-50.0); LYMPHOCYTES 8.4 % (24-44); MCH 31.4 (27-36); MCHC 33.5 g/dl (30-36); MCV 93.8 fl (81-99); MONOCYTES 11.8 % (0-12); NEUTROPHILS 79.4 % (39-80); PLATELET COUNT 107 K/uL (140-440); RDW 15.3 (10.5-15.0)
[2024-05-04 19:39] LABS: INFLUENZA B NAA NEGATIVE (NEGATIVE); RESPIRATORY SYNCYTIAL VIR NAA NEGATIVE (NEGATIVE)
[2024-05-04 20:38] LABS: ABO O; ANTIBODY SCREEN NEGATIVE; IS CROSSMATCH COMPATIBLE; RH POSITIVE
[2024-05-04] MEDS ORDERED: CEFTRIAXONE/SODIUM CHLORIDE 1 GM/100 ML PIGGYBACK IV ONE (21:00)
[2024-05-04] MEDS ORDERED: LACTATED RINGER'S 1,000 ML IV ONE (21:00)
[2024-05-04 21:22] LABS: HEMATOCRIT 33.2 % (35.0-50.0); HEMOGLOBIN 11.2 g/dL (12.0-18.0)
[2024-05-04] MEDS ORDERED: FAMOTIDINE 20 MG/ 2 ML VIAL IV ONE (21:45)
[2024-05-05 00:22] LABS: HEMATOCRIT 33.9 % (35.0-50.0); HEMOGLOBIN 11.5 g/dL (12.0-18.0)
[2024-05-05] MEDS ORDERED: ondansetron HCL 4 MG/2 ML VIAL IV ONE (00:30)
[2024-05-05 01:25] VITALS: BP 92/55
== END 2024-05-05 01:25 | disposition short-term general hospital (02) ==
LOC: ED 18:04
PROVIDERS: Emergency Medicine; Internal Medicine
DX: K92.2 Gastrointestinal hemorrhage, unspecified (principal); K70.30 Alcoholic cirrhosis of liver without ascites; F17.200 Nicotine dependence, unspecified, uncomplicated; Z88.8 Allergy status to other drugs, medicaments and biological substances; Z79.899 Other long term (current) drug therapy; Z11.52 Encounter for screening for COVID-19
CPT/HCPCS: 36415; 36430; 51701; 80053; 80307; 81003; 82140; 84484; 85014; 85018; 85025; 85610; 85730; 86850; 86900; 86901; 86922; 87502; 99285-25; G0480; J0696; J1790; J2354-JA; J2405; J2470; J7030; J7050; J7121; P9016; U0002

== ENCOUNTER 2025-05-02 14:49 | Emergency (ER) | payer OTHER ==
[~2025-05-02] VITALS: Ht 167.6 cm; Wt 84.3 kg
[2025-05-02] MEDS ORDERED: SODIUM CHLORIDE 0.9% 1,000 ML IV ONE (15:30)
[2025-05-02 16:12] LABS: BASOPHILS 2.2 % (0.1-1.2); EOSINOPHILS 1.8 % (0.7-5.8); LYMPHOCYTES 23.6 % (19.3-51.7); MCH 29.8 PG (25.6-32.2); MCHC 34.9 g/dL (32.2-35.5); MCV 85.2 fL (79.4-94.8); MONOCYTES 8.8 % (4.7-12.5); NEUTROPHILS 63.4 % (34.0-71.1); RBC 4.87 M/uL (3.93-5.22)
[2025-05-02 16:31] LABS: ALT (SGPT) 57.0 U/L (14-59); AST (SGOT) 165.0 U/L (15-37); GLOMERULAR FILTRATION RATE,EST 88.0 mL/min (>60); PROTEIN, TOTAL 7.3 g/dL (6.4-8.2); UREA NITROGEN 3.0 mg/dL (7-18)
[2025-05-02] MEDS ORDERED: POTASSIUM CHLORIDE 10 MEQ/100 ML BAG IV SCH (16:45)
[2025-05-02] MEDS ORDERED: ONDANSETRON 4 MG HOME.PACK SL ONE (18:30)
[2025-05-02 20:50] VITALS: BP 112/86
== END 2025-05-02 20:16 | disposition home or self-care (01) ==
LOC: ED 14:49
PROVIDERS: Emergency Medicine
DX: K29.00 Acute gastritis without bleeding (principal); F17.200 Nicotine dependence, unspecified, uncomplicated; Z79.899 Other long term (current) drug therapy; Z88.8 Allergy status to other drugs, medicaments and biological substances
CPT/HCPCS: 80053; 83690; 85025; 96361; 96365; 96375; 99284-25; A9270; J1790; J2405; J3480; J7030